=== PATIENT | female | born 1945 | race Caucasian/White ===

== ENCOUNTER 2022-06-16 11:37 | Outpatient (CLI) | payer MEDICARE, MEDICAID, SELFPAY ==
--- NOTE | ~2022-06-16 | US_ITS ---
EXAMINATION: US venous doppler [facility] DATE: 06/16/2022 12:25 INDICATION: Localized lower limb swelling TECHNIQUE: Grayscale ultrasound images without and with compression and Doppler ultrasound images of the bilateral lower extremity veins were obtained. COMPARISON: None. FINDINGS: The visualized portions of right common femoral vein, profunda (deep) femoral vein, femoral vein, pop liteal vein, posterior tibial veins, gastrocnemius vein and greater saphenous vein outflow are patent . The visualized portions of left common femoral vein, profunda femoral vein, femoral vein, popliteal v ein, posterior tibial veins, peroneal veins, gastrocnemius vein and greater saphenous vein outflow ar e patent. IMPRESSION: 1. No deep venous thrombosis in either lower limb. Reviewed, dictated and finalized at location A.
== END 2022-06-16 11:38 | disposition home or self-care (01) ==
PROVIDERS: Visit Provider Internal Medicine Cardiovascular Disease
DX: R60.0 Localized edema (principal)
CPT/HCPCS: 93970

== ENCOUNTER 2022-09-02 12:34 | Outpatient (CLI) | payer MEDICARE, MEDICAID, SELFPAY ==
--- NOTE | 2022-09-02 12:58 | ECHO_ITS ---
Patient Info Name: Marian Ortiz Age: 77 years : 1945 Gender: Female Ht: 63 in Wt: 198 lbs BSA: 2.04 m2 HR: 85 bpm BP: 158 / 75 mmHg Heart Rhythm: Sinus Rhythm Technical Quality: Fair Exam Date: 09/02/2022 1:11 PM Exam Location: [facility] Patient Status: Outpatient Admit Date: 09/02/2022 Staff Ordering Physician: Wil Dinero DO Shaker Plate Operator: Sisi Dubon RDCS Attending Provider: Wil Dinero DO Referring Physician: Bar SANCHEZ; Exam Type: CA echo doppler color flow Study Info Indications - cardiac murmur Complete two-dimensional, color flow and Doppler transthoracic echocardiogram is performed. Summary 1. Complete two-dimensional, color flow and Doppler transthoracic echocardiogram is performed. 2. Left ventricular chamber dimension is normal. 3. Left ventricular systolic function is normal, estimated at 60-65%. 4. The left ventricular diastolic function is grade I diastolic dysfunction. 5. E/e' 7 is not elevated. 6. There is moderate aortic valve sclerosis. 7. There is mild aortic valve stenosis with a peak velocity of 230 cm/s, mean gradient of 11 mmHg, and aortic valve area of 2.0 cm2. 8. There is mild tricuspid valve regurgitation. 9. No pulmonary hypertension, estimated pulmonary arterial systolic pressure is 34 mmHg. Left Ventricle E/e' 7 is not elevated. Left ventricular chamber dimension is normal. Left ventricular systolic function is normal, estimated at 60-65%. The left ventricular diastolic function is grade I diastolic dysfunction. Right Ventricle Right ventricular chamber dimension is normal. Right ventricular systolic function is normal. Left Atria Left atrial chamber dimension is normal. Right Atria Right atrial chamber dimension is normal. Aortic Valve The aortic valve is trileaflet. There is moderate aortic valve sclerosis. There is mild aortic valve stenosis with a peak velocity of 230 cm/s, mean gradient of 11 mmHg, and aortic valve area of 2.0 cm2. There is no aortic valve regurgitation. Pulmonic Valve There is no pulmonic regurgitation. Mitral Valve There is no mitral valve stenosis. There is no mitral valve regurgitation. Tricuspid Valve There is mild tricuspid valve regurgitation. No pulmonary hypertension, estimated pulmonary arterial systolic pressure is 34 mmHg. Pericardium/Pleural There is no pericardial effusion. Inferior Vena Cava Normal inferior vena cava with >50% collapse upon inspiration consistent with normal right atrial pressure, 5 mmHg. Aorta The aortic root size at the sinus of Valsalva is normal. Left Ventricular Outflow Tract Name Value Normal LVOT 2D LVOT Diameter 2.0 cm LVOT Doppler LVOT Peak Gradient 4 mmHg LVOT Mean Gradient 3 mmHg LVOT VTI 28 cm LVOT VTI/AV VTI Ratio 0.7 LVOT Stroke Volume 88 ml LVOT CO 14.4 l/min LVOT CI 7.1 l/min/m2 Pulmonic Valve Name Value Normal ---------
== END 2022-09-02 12:35 | disposition home or self-care (01) ==
LOC: ANHCARD 12:37
PROVIDERS: Visit Provider Internal Medicine Cardiovascular Disease
DX: R01.1 Cardiac murmur, unspecified (principal); I36.1 Nonrheumatic tricuspid (valve) insufficiency
CPT/HCPCS: 93306

== ENCOUNTER 2024-05-05 09:16 | Outpatient (CLI) | payer MEDICARE, SELFPAY ==
--- NOTE | 2024-05-05 09:27 | ECHO_ITS ---
Patient Info Name: Marian Ortiz Age: 78 years : 1945 Gender: Female Ht: 63 in Wt: 200 lbs BSA: 2.05 m2 HR: 72 bpm BP: 149 / 76 mmHg Heart Rhythm: Sinus Rhythm Technical Quality: Fair Exam Date: 05/05/2024 9:57 AM Exam Location: Echo Lab Patient Status: Outpatient Admit Date: 05/05/2024 Staff Ordering Physician: Wil Dinero DO Metal Ceiling Builder: Kezia Patterson RDCS Attending Provider: Wil Dinero DO Referring Physician: Bar SANCHEZ; Exam Type: CA echo doppler color flow Study Info Indications - Aortic valve disease Complete two-dimensional, color flow and Doppler transthoracic echocardiogram is performed. Summary 1. Complete two-dimensional, color flow and Doppler transthoracic echocardiogram is performed. 2. Left ventricular chamber dimension is normal. 3. Left ventricular systolic function is normal, estimated at 65-70%. 4. There is mild concentric increased left ventricular wall thickness. 5. The left ventricular diastolic function is grade I diastolic dysfunction. 6. E/e' 10 is mildly elevated. 7. Left atrial chamber dimension is mildly enlarged. 8. There is moderate aortic valve sclerosis. 9. There is mild aortic valve stenosis with a peak velocity of 219 cm/s, mean gradient of 10 mmHg, and aortic valve area of 1.9 cm2. 10. There is trace aortic valve regurgitation. 11. The mitral valve has mildly calcified annulus. 12. There is trace tricuspid valve regurgitation. 13. No pulmonary hypertension, estimated pulmonary arterial systolic pressure is 23 mmHg. 14. There is trace pulmonic regurgitation. Left Ventricle E/e' 10 is mildly elevated. Left ventricular chamber dimension is normal. Left ventricular systolic function is normal, estimated at 65-70%. There is mild concentric increased left ventricular wall thickness. The left ventricular diastolic function is grade I diastolic dysfunction. Right Ventricle Right ventricular systolic function is normal and with normal TAPSE 1.8 cm. Right ventricular chamber dimension is normal. Left Atria Left atrial chamber dimension is mildly enlarged. Right Atria Right atrial chamber dimension is normal. Aortic Valve The aortic valve is trileaflet. There is moderate aortic valve sclerosis. There is mild aortic valve stenosis with a peak velocity of 219 cm/s, mean gradient of 10 mmHg, and aortic valve area of 1.9 cm2. There is trace aortic valve regurgitation. Pulmonic Valve There is trace pulmonic regurgitation. Mitral Valve The mitral valve has mildly calcified annulus. There is no mitral valve stenosis. There is no mitral valve regurgitation. Tricuspid Valve There is trace tricuspid valve regurgitation. No pulmonary hypertension, estimated pulmonary arterial systolic pressure is 23 mmHg. Pericardium/Pleural There is no pericardial effusion. Inferior Vena Cava Normal inferior vena cava with >50% collapse upon inspiration consistent with normal right atrial pressure, 5 mmHg. Aorta The aortic root size at the sinus of Valsalva is normal. Left Ventricular Outflow Tract Name Value Normal LVOT 2D LVOT Diameter 2.0 cm LVOT Doppler LVOT Peak Gradient 7 mmHg LVOT Mean Gradient 4 mmHg LVOT VTI 33 cm LVOT VTI/AV VTI Ratio 0.6 LVOT Stroke Volume 103 ml LVOT CO 17.4 l/min LVOT CI 8.5 l/min/m2 Pulmonic Valve Name Value Normal RVOT Doppler RVOT Peak Gradient 2 mmHg PV Doppler PV Peak Gradient 9 mmHg Mitral Valve Name Value Normal MV Doppler MV Decel Bennett 243 cm/s2 MV PHT 78 ms MV Area (PHT) 2.8 cm2 4.0-5.0 MV Diastolic Function MV E Peak Velocity 65 cm/s MV A Peak Velocity 88 cm/s MV E/A 0.7 MV Decel Time 268 ms MV Annular TDI MV E/e' (Septal) 12.1 <=8.0 MV E/e' (Lateral) 9.0 <=8.0 MV E/e' (Average) 10.6 Tricuspid Valve Name Value Normal TV Regurgitation Doppler TR Peak Velocity 215 cm/s TR Peak Gradient 18 mmHg Estimated PAP/RSVP RA Pressure 5 mmHg <=5 PA Systolic Pressure 23 mmHg <36 RV Systolic Pressure 23 mmHg <36 Aortic Valve Name Value Normal AV Doppler AV Peak Velocity 219 cm/s AV Peak Gradient 17 mmHg AV Mean Gradient 10 mmHg AV VTI 55 cm AV Area (Cont Eq VTI) 1.9 cm2 >=3.0 AV Area (Cont Eq Luis) 1.9 cm2 AV Regurgitation 2D LVOT Area 3.1 cm2 AV Regurgitation Doppler AR Decel Time 5,113 ms AR Decel Bennett 51 cm/s2 AR PHT 1,483 ms Ventricles Name Value Normal LV Dimensions 2D/MM IVS Diastolic Thickness (2D) 1.2 cm 0.6-1.0 LVID Diastole (2D) 4.2 cm 3.8-5.2 LVIW Diastolic Thickness (2D) 1.0 cm 0.6-0.9 LVID Systole (2D) 2.9 cm 2.2-3.5 LVOT Diameter 2.0 cm LV Mass (2D Cubed) 153.83 g 67.00-162.00 LV Mass Index (2D Cubed) 75 g/m2 43-95 Relative Wall Thickness (2D) 0.47 LV Fractional Shortening/Ejection Fraction 2D/MM LV Fractional Shortening (2D) 32 % 27-45 LV EF (2D Teicholz) 60 % 54-74 LV Diastolic Volume (4C MOD) 111 ml LV EF (4C MOD) 69 % LV Diastolic Volume (2C MOD) 137 ml LV EF (2C MOD) 71 % LV Diastolic Volume (BP MOD) 128 ml 46-106 LV Diastolic Volume Index (BP MOD) 63 ml/m2 29-61 LV Systolic Volume (BP MOD) 38 ml 14-42 LV Systolic Volume Index (BP MOD) 19 ml/m2 8-24 LV EF (BP MOD) 70 % 54-74 LV Diastolic Length (4C) 7.8 cm LV Systolic Length (4C) 5.7 cm LV Stroke Volume (4C MOD) 76 ml Atria Name Value Normal LA Dimensions LA Volume (4C A-L) 68 ml LA Volume (BP A-L) 66 ml RA Dimensions RA Area (4C) 17.1 cm2 <=18.0 Report Signatures
--- OUTSIDE RECORDS SUMMARY | 2024-05-05 09:46 | XMS_ITS | Encounter Summary ---
Author Organization [facility] Health Address [address] [place] [address] Care Team Providers Care Osha Inspector Name Role Phone Isaias Cotto MD Primary Care Provider Unavailab Maryse Newman PRODUCTION LINE MANAGER-CONCERT PROMOTER Unavailable [phone] Isaias Cotto MD Unavailable Unavailable Isaias Cotto MD Unavailable Unavailable Isaias Cotto MD Unavailable Unavailable Isaias Cotto MD Unavailable Unavailable Pcp, [facility] Primary Care Provider Un available Kee Washington MD Primary Care Provider [phone] Encounter Details Date Type Department Care Team (Late st Contact Info) Description 04/19/2012 [facility] Outpatient Visit EXTERNAL NON-[facility] [place] [place] [address] [place] [address] Social History Tobacco Use Types Packs/Day Years Used Date Smoking Tobacco: Every Day Cigarettes Smokeless Tobacco: Never Alcohol Use Standard Drinks/Week Comments No 0 (1 standard drink = 0.6 oz pur e alcohol) Sex and Gender Information Value Date Recorded Sex Assigned at Not on file Gender Identity Not on file Sexual Orientation Not on file documented as of this encounter Plan of Treatment Not on file documented as of this encounter Visit Diagnoses Not on filedocumented in this encounter Additional Health Concerns Infection Onset Date Last Indicated Resolved Time COVID-19 Under Investigation 03/13/2021 03/13/2021 03/15/2021 6:[address] SQL DEVELOPER CDIFF Under Investigation 04/01/2022 04/02/2022 4:[address] SQL DEVELOPER documented as of this encounter Care Teams Osha Inspector Relationship Specialty Start Date End Date Isaias Cotto MD PCP - General 01/16/08 02/28/24 Isaias Cotto MD Retired PCP - Attributed-C MA 03/25/21 07/10/21 Isaias Cotto MD Retired PCP - Attributed-[employer] MA 10/23/21 12/09/22 Isaias Cotto MD Retired PCP - Attributed-[employer] MA 04/23/23 05/13/23 Isaias Cotto MD Retired PCP - Attributed-C MA STL P4P 05/24/23 Pcp, [facility] Im-Fm PCP - General 02/29/24 04/26/24 Kee Washington MD [address] [place] [phone] PCP - General Family Medicine 04/27/24 Maryse Smith, PRODUCTION LINE MANAGER-CONCERT PROMOTER Nurse Practitioner Nurse Practitioner 06/17/15 documented as of this encounter
--- OUTSIDE RECORDS SUMMARY | 2024-05-05 09:46 | XMS_ITS | Clinical Summary ---
Author Organization [facility] Address [address] Flores: Epic Prelude [place] [address] Care Team Providers Care Filling Separator Name Role Phone Unavailable Primary Care Provider Unavailabl e Social History Tobacco Use Types Packs/Day Years Used Date Smoking Tobacco: Never Assessed Comments Unknown Sex and Gender Information Value Date Recorded Sex Assigned at Not on file Legal Sex Female 4:25 AM DECORATOR HAND Gender Identity Not on file Sexual Orientation Not on file Plan of Treatment Health Maintenance Due Date Last Done Comments DTAP/TDAP/TD VACCINES (1 - Tdap) 06/25/1966 PNEUMOCOCCAL VACCINE 50+ YEARS (1 of 1 - PCV) 06/25/18 98 ZOSTER VACCINE (1 of 2) 06/25/1997 OSTEOPOROSIS SCREENING 06/25/2012 RSV VACCINE (60+ or ) (1 - 1-dose 75+ series) 06/25/2022 INFLUENZA VACCINE (#1) 2023
--- OUTSIDE RECORDS SUMMARY | 2024-05-05 09:46 | XMS_ITS | Referral Summary ---
Author Organization [facility] [address] [place] [address] Care Team Providers Care Hospital Unit Clerk Name Role Phone Isaias Pino MD Unavailable [phone] Isaias Pino MD Primary Care Provider [phone] Allergies Active Allergy Reactions Criticality Noted Date Comments Morphine Nausea And Vomiting 03/11/2015 Medications pravastatin (PRAVACHOL) 20 mg tablet Take 20 mg by mouth daily. Active enalapril (VASOTEC) 20 mg tablet Take 20 mg by mouth daily. Active metFORMIN (GLUCOPHAGE) 500 mg tablet Take 500 mg by mouth 2 (two) times a day with meals. Active hydroCHLOROthia zide (MICROZIDE) 12.5 mg capsule Take 12.5 mg by mouth daily. Active allopurinoL (ZYLOPRIM) 300 mg tablet 1 Active NovoLIN 70/30 100 unit/mL vial for injection 1 Active levothyroxine (SYNTHROID) 50 mcg tablet TAKE ONE TAB ALTERNATING WITH 2 TABS EVERY OTHER DAY 1 Active metoprolol XL (TOPROL-XL) 100 mg 24 hr tablet Take 50 mg by mouth daily 1 Active fidaxomicin (DIFICID) tabletIndicatio ns:Clostridioid es difficile infection Take 1 tablet (200 mg total) by mouth 2 (two) times a day 20 tablet 3 Active Active Problems Problem Noted Date Diagnosed Date Primary osteoarthritis of left hip 12/09/2020 Hip flexor tendonitis, left 12/09/2020 Tendonitis involving hip abductors, left 021 Gout, arthropathy 05/02/2018 Social History Tobacco Use Types Packs/Day Years Used Date Smoking Tobacco: Never Assessed Cigarettes Quit: 1999 Smokeless Tobacco: Never Personal Safety Answer Date Recorded Getting School Help Needed Denies 02/02 Comments No Sex and Gender Information Value Date Recorded Sex Assigned at Not on file Legal Sex Female 12:28 PM MINIATURE TRAIN DRIVER Gender Identity Not on file Sexual Orientation Not on file Last Filed Vital Signs Vital Sign Reading Time Taken Comments Blood Pressure 150/76 04/05/2022 10:29 AM MINIATURE TRAIN DRIVER Pulse 79 04/05/2022 10:29 AM MINIATURE TRAIN DRIVER Temperature 36.6 C (97.8 F) 04/05/2022 10:29 AM MINIATURE TRAIN DRIVER Respiratory Rate 18 04/05/2022 10:29 AM MINIATURE TRAIN DRIVER Oxygen Saturation 98% 04/05/2022 10:29 AM MINIATURE TRAIN DRIVER Inhaled Oxygen Concentration - - Weight 90.7 kg (200 lb) 04/05/2022 10:29 AM MINIATURE TRAIN DRIVER Height 161.3 cm (5' 3.5 ) 04/05/2022 10:29 AM CS T Body Mass Index 34.87 04/05/2022 10:29 AM MINIATURE TRAIN DRIVER Plan of Treatment Not on file Procedures Procedure Name Priority Date/Time Associated Diagnosis Comments DIGITAL MAMMOGRAPHY Routine 12/27/2012 1 0:57 AM MINIATURE TRAIN DRIVER from Last 3 Months or Most Recently Relevant to Health Maintenance Results * DIGITAL MAMMOGRAPHY (12/27/2012 10:57 AM MINIATURE TRAIN DRIVER) Anatomical Region Laterality Modality Breast Mammography 12/27/2012 10:5 7 AM MINIATURE TRAIN DRIVER Narrative 12/27/2012 9:54 PM MINIATURE TRAIN DRIVER Screening Mamm Bi Acc#: [id number] Performed by: meg DATE OF EXAM: Dec 27 2012 CLINICAL HISTORY: Screening. RESULT: Superior-inferior and lateral oblique views of each breast were obtained using the low dose technique. Breasts are composed primarily of fatty tissue, increasing the reliability of the study. No pathological calcification or skin thickening was seen. Digital technology was employed plus computer-aided detection software (R2) was utilized in interpretation of these images. This facility utilizes a reminder system to notify patients of yearly mammograms. IMPRESSION: NEGATIVE MAMMOGRAM. BI-RADS CATEGORY 1: NEGATIVE EXAM. Interpreting Physician: ATTILA TOLLIVER M.D. Read on: Dec 27 2012 11:01A Transcribed by: BO On: Dec 27 2012 1:51P Approved Electronically by: ATTILA TOLLIVER M.D. on: Dec 27 2012 9:54P Ordering DR: ISAIAS PINO Attending : ISAIAS PINO Procedure Note Provider, MD Royer - 06/12/2016 Screening Mamm Bi Acc#: [id number] Performed by: meg DATE OF EXAM: Dec 27 2012 CLINICAL HISTORY: Screening. RESULT: Superior-inferior and lateral oblique views of each breast were obtainedusing the low dose technique. Breasts are composed primarily of fattytissue, increasing the reliability of the study. No pathologicalcalcification or skin thickening was seen. Digital technology was employedplus computer-aided detection software (R2) was utilized in interpretationof these images. This facility utilizes a reminder system to notifypatients of yearly mammograms. IMPRESSION: NEGATIVE MAMMOGRAM. BI-RADS CATEGORY 1: NEGATIVE EXAM. Interpreting Physician: ATTILA TOLLIVER M.D. Read on: Dec 27 201211:01A Transcribed by: BO On: Dec 27 2012 1:51P Approved Electronically by: ATTILA TOLLIVER M.D. on: Dec 27 20129:54P Ordering DR: ISAIAS PINO Attending : ISAIAS PINO Historical Provider IMG MAMMO PROCEDURES Tavia l Result from Last 3 Months or Most Recently Relevant to Health Maintenance Insurance [employer] MEDICARE SOLUTIONS MEDICARE SOLUTIONS [facility] MEDICARE SOLUTIONS MEDICARE SOLUTIONS IDPA Care Teams Hospital Unit Clerk Relationship Specialty Start Date End Date Isaias Pino MD [address] [place] [address] PCP - General Internal Medicine 02/05/23 Isaias Pino MD [address] [place] [address] 04/05/22
--- OUTSIDE RECORDS SUMMARY | 2024-05-05 09:46 | XMS_ITS | Encounter Summary ---
Author Organization [email or web address] Address [address] [place] [address] Care Team Providers Care Dough Raiser Name Role Phone Unavailable Primary Care Provider Unavailabl e Encounter Details Date Type Department Care Team (Late st Contact Info) Description 06/01/2003 Outpatient Historical [facility] Luis Felipe Washington MD NO ADDRESS ON FILE Social History Tobacco Use Types Packs/Day Years Used Date Smoking Tobacco: Never Assessed Comments Unknown Sex and Gender Information Value Date Recorded Sex Assigned at Not on file Legal Sex Female 4:25 AM DEBUBBLIZER Gender Identity Not on file Sexual Orientation Not on file documented as of this encounter Plan of Treatment Not on file documented as of this encounter Visit Diagnoses Not on filedocumented in this encounter
--- OUTSIDE RECORDS SUMMARY | 2024-05-05 09:46 | XMS_ITS | Clinical Summary ---
Author Organization [facility] Address [address] [place] [address] Care Team Providers Care Furnace Liner Name Role Phone Maryse Smith APRN-[employer] Unavailable [phone] Isaias Cotto MD Unavailable Unavailable Kee Washington MD Primary Care Provider [phone] Source Comments [facility],non-owned Affiliates and Associated Physician Practices is amultiple site organization consisting of ambulatory clinics and hospital sitesin [place], [place], [place] and [place]. This disclosure is being madepursuant to the Care Everywhere program and may not contain all information available regarding this patient. Last updated 17.[facility] Allergies Active Allergy Reactions Criticality Noted Date Comments Ciprofloxacin Angioedema High 04/03/2022 Enalapril Angioedema High 04/06/2022 possible cause of lip swelling Metronidazole Angioedema High 04/03/2022 was on flagyl and cipro at the same time and had lip swelling. Morphine Nausea and/or Vomiting 03/11/2015 Simvastatin 06/05/2008 LE[facility] CRAMPS Medications * Be aware that medications may not be up to date on this document. Alwaysverify current medications with the patient. Medication Sig Dispensed Refills Start Date End Date Status Microlet Lancets MISCIndications:Ty pe 2 diabetes; E11.00; insulin use Use 1 Each 2 times daily Reasons: Type 2 diabetes; E11.00; insulin use 200 Each 3 05/20/19 22 Active aspirin (ASPIRIN) 81 MG chew tablet Take 1 (one) tablet by mouth once daily 100 tablet 08/07/19 22 Active ketoconazole (Nizoral) 2 % creamIndications:R josé miguel APPLY TO AFFECTED AREA EVERY DAY 15 g 01/13/20 22 Active OneTouch Verio test stripIndications:D iabetes mellitus with stage 3 chronic kidney disease (HCC) TEST TWICE A DAY 200 strip 3 03/23/19 23 Active ferrous sulfate 325 (65 FE) MG tablet Take 1 (one) tablet by mouth once daily 30 tablet 05/26/19 23 Active ascorbic acid (Vitamin C) 500 MG tablet Take 1 (one) tablet by mouth once daily 30 tablet 05/26/19 23 Active Continuous Blood Gluc Manager Mechanical Maintenance (Evolve PartnersStyle Billie 2 [place] Syst) DEVIIndications:Di abetes Mellitus,Type 2 diabetes; insulin use Use 1 Each once daily Reasons: Diabetes, Type 2 diabetes; insulin use 1 Each 06/16/19 23 Active Blood Pressure Monitor KIT Use 1 Each once daily 1 kit 06/17/19 23 Active UltiCare Insulin Syringe 31G X 5/16 1 ML syringeIndications :Diabetes mellitus with stage 3 chronic kidney disease (HCC) USE 1 SYRINGE TWICE A DAY 200 Each 3 09/04/19 23 Active folic acid (Folvite) 1 MG tablet Take 1 (one) tablet by mouth once daily 90 tablet 4 10/16/19 23 Active cyanocobalamin (Vitamin B-12) 1000 MCG tabletIndications: B12 deficiency Take 1 (one) tablet by mouth once daily 90 tablet 1 01/19/20 23 Active Cholecalciferol (Vitamin D3) 25 MCG (1000 UT)Indications:Vit whitlock D deficiency Take 1 (one) capsule by mouth once daily 90 capsule 1 01/19/20 23 Active LORazepam (Ativan) 1 MG tablet Take 1 (one) tablet by mouth as directed Take 1 tab 1 hr prior to test then can take 2nd before test if needed. 2 tablet 03/17/19 24 Active Nystop 312431 UNIT/GM powderIndications: Skin yeast infection APPLY TO AFFECTED AREA TWICE DAILY 60 g 1 04/14/19 24 Active naloxone HCl (Narcan) 4 MG/0.1ML nasal sprayIndications:L kulwant term current use of opiate analgesic,Chronic pain syndrome [employer] 1 (one) spray into the nose as needed 2 Each 05/14/20 24 Active sertraline (Zoloft) 50 MG tablet Take 2 (two) tablets by mouth once daily 90 tablet 1 09/24/19 24 Active Insulin Pen Needle 32G X 4 MM MISCIndications:Di abetes mellitus with stage 3 chronic kidney disease (HCC) 1 Each by Injection route 2 times daily 200 Each 1 09/24/19 24 Active predniSONE (Deltasone) 10 MG tablet Take 1 (one) tablet by mouth once daily 7 tablet 11/25/19 24 Active Semaglutide (2 MG/DOSE) 8 MG/3ML Subcutaneous Solution Pen-injector (Ozempic (2 MG/DOSE))Indicatio ns:Diabetes mellitus with stage 3 chronic kidney disease (HCC) Inject 2 (two) mg subcutaneously every 7 days 3 mL 4 11/26/19 24 Active furosemide (Lasix) 40 MG tabletIndications: Bilateral leg edema Take 1 (one) tablet by mouth once daily 90 tablet 1 12/02/19 24 Active allopurinol (Zyloprim) 300 MG tabletIndications: Acute idiopathic gout of right foot TAKE ONE TABLET BY MOUTH DAILY AT 9 AM 90 tablet 1 12/02/19 24 Active amLODIPine (Norvasc) 5 MG tablet Take 1 (one) tablet by mouth once daily 90 tablet 1 12/02/19 24 Active Continuous Glucose Sensor (FreeStyle Billie 2 Sensor Systm) MISCIndications:Di abetes Mellitus,Type 2 diabets; insulin use USE 1 (ONE) EACH EVERY 14 DAYS REASONS: DIABETES, TYPE 2 DIABETS INSULIN USE 6 Each 3 01/10/20 24 Active metoprolol succinate XL 24hr (Toprol XL) 100 MG tablet TAKE 1/2 TABLET BY MOUTH DAILY 45 tablet 3 01/25/20 24 Active levothyroxine (Synthroid) 100 MCG tabletIndications: Adult onset hypothyroidism TAKE ONE TABLET BY MOUTH EVERY DAY 90 tablet 3 01/25/20 24 Active pravastatin (Pravachol) 40 MG tablet TAKE ONE TABLET BY MOUTH DAILY AT BEDTIME 90 tablet 3 01/25/20 24 Active HYDROcodone-acetam inophen ([place]) 5-325 MG tabletIndications: Spinal stenosis of lumbar region, unspecified whether neurogenic claudication present TAKE ONE TABLET BY MOUTH EVERY 6 HOURS NEEDED FOR PAIN 60 tablet 02/14/20 24 Active HumuLIN 70/30 KWIKPEN pen INJECT 40 UNITS TWICE DAILY BEFORE BREAKFAST AND SUPPER 210 mL 05/02/19 25 Active insulin isophane & Reg, human, 70/30 (HumuLIN 70/30 KWIKPEN) pen Inject 40 (forty) Units subcutaneously 2 times daily, before breakfast and supper 80 mL 1 09/24/19 24 025 Discontinued Active Problems Problem Noted Date Diagnosed Date COVID 11/25/2023 Encounter for Medicare anjel zapata examination with abnormal findings 11/25/2023 Meningioma 03/17/2023 Vitamin D deficiency 01/18/2023 Systolic murmur 09/24/2022 Fatigue 09/24/2022 Vitamin B12 deficiency 09/24/2022 Grade I diastolic dysfunction 04/09/2021 Arthritis of spine 04/25/2019 Chronic pain of both knees 04/25/2019 Uncontrolled type 2 diabetes mellitus with hyper glycemia 04/25/2019 Overview (02/21/2020): Isaias Cotto MD 01/04/20 Acute idiopathic gout of right foot 05/04/2018 SOB (shortness of breath) 05/04/2018 Uncontrolled type 2 diabetes mellitus with hyperosmolarity without coma, without long-term current use of insulin 03/02/2018 Overview (03/02/2018): Isaias Cotto MD 06/22/2017 CKD (chronic kidney disease) stage 3, GFR 30-59 ml/min 11/05/2017 Personal history of tobacco use, presenting hazards to health 11/05/2017 Diabetes mellitus with stage 3 chronic kidney di sease 11/03/2017 At standard risk for fall 11/05/2016 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 Tello Bronson (L3) 10/07/[address] Kia Guevara (L1) Carotid bruit 03/26/2011 Overview (03/26/2011): Negative carotid ultrasound 12/2010. History of bladder cancer 11/05/2009 Overview (11/11/2009): History of this in the 11/01/09- Cysto- normal- Dr. Odom 11/01/09 Dr. Odom bladder mucosa was normal Lumbar spinal stenosis 12/12/2008 Overview (12/12/2008): Dr. Melchor- plan to have laminectomy Elevated cholesterol 06/05/2008 TOR (generalized anxiety disorder) 06/05/2008 Other screening mammogram 06/05/2008 Overview (06/05/2008): NEG NEG NEG NEG 02/22 NEG Piriformis tendonitis 08/31/2007 Hx of colonic polyps 06/14/2007 Overview (09/30/2015): 07/30/15-Dr Del ValleUmnmgn-btciaatstxc-0 polyps Resolved Problems Problem Noted Date Diagnosed Date Resolved Date Panlobular emphysema 02/21/2020 024 Overview (02/21/2020): Isaias Cotto MD 04/25/19 Class 2 severe obesity with serious comorbidity and body mass index (BMI) of 37.0 to 37.9 in adult 03/08/2018 05/09/2020 Essential hypertension, benign 03/08/2018 02/21/2020 Chronic obstructive pulmonary disease 11/05/2017 07/06/2023 Overview (11/05/2017): CT scan of chest 2017 shows emphysema present. Malignant neoplasm of urinary bladder 06/09/2016 06/02/2021 BMI 35.0-35.9,adult 02/05/2016 03/02/19 19 BMI 36.0-36.9,adult 10/01/2015 03/02/19 19 Colon polyp 08/16/2015 09/30/2015 Overview (08/16/2015): 07/30/15-Dr Del ValleTlopdb-wmevbmhoxbm-6 polyps Thyrotoxicosis 09/28/2014 09/28/2014 Overview (11/22/2014): Vasile Cotto MD 06/06/2014 Hyperthyroidism 06/10/2012 09/01/2016 Aortic atherosclerosis 03/17/201204/24 Overview (11/05/2017): On 11/05/17 I looked at all of her x-rays and CT scans and can't find this Dx anymore. Not sure where this dx was found. Will see new CT scan to see if this can be discontnued. Hypothyroidism 08/20/2011 06/10/2012 Overview (08/20/2011): 08/06/2011-thyroid scan-increased iodine uptake suggesting hyperthyroidism, R thyroid lobe larger and has asymetric activity with possible hyperfunctioning nodule in mid gland 08/06/2011-thyroid us-both lobes homogeneous,nodules eli with calcified nodule inferiorly on the left Type II or unspecified type diabetes mellitus without mention of complication, uncontrolled 02/27/2010 05/28/2010 Hypertension 06/05/2008 01/15/2009 Type II or unspecified type diabetes mellitus without mention of complication, not stated as uncontrolled 06/05/2008 05/28/2010 Intra-aortic calcification 12/14/2007 1 04/01/2014 Encounters Date Type Department Care Team Description 04/26/[address] [address] Isaias Cotto MD Refill Request 04/18/[address] [address] Isaias Cotto MD Refill Request 03/11/[address] [address] Isaias Cotto MD Refill Request 02/14/[address] [phone] Isaias Cotto MD MEDICATION REFILL from Last 3 Months Immunizations Name Administration Dates Next Due INFLUENZA VACCINE, TRIV. (AF LURIA, FLUZONE TRIVALENT; 6MO+) (IIV3) 11/21/2011,11/27/2009 Covid Moderna primary monova lent 12+ yr 0.5mL 04/21/2020 Covid Pfizer primary monoval ent 12+ yr 0.3mL Purple cap 02/13/2021 INFLUENZA VACCINE 11/25/2017, 7,11/26/2015,2014,11/12/2012,11/21/2011,11/12/2010,1 ,11/23/2007 INFLUENZA VACCINE, ADJUVANTE D, QUADR. (FLUAD QUADRIVALENT; 65Y+) (AIIV4) 10/29/2022 INFLUENZA VACCINE, ADJUVANTE D, TRIV. (FLUAD TRIVALENT; 65Y+) (AIIV3) 02/08/2019,11/25/2017 INFLUENZA VACCINE, HIGH-DOSE , QUADR. (FLUZONE HIGH-DOSE QUADRIVALENT; 65Y+), 0.7 ML (HD-IIV4) 12/15/2021,01/03/2021,11/07/2019,2016 INFLUENZA VACCINE, HIGH-DOSE , TRIV. (FLUZONE HIGH-DOSE TRIVALENT; 65Y+) (HD-IIV3) 02/01/2017 PNEUMOCOCCAL PPSV23 10/20/2012,11/23/2007 Pneumococcal Pcv13 Conj 11/26/2015 Spikevax(nucleoside Modified) 12/27/2022 Zoster Hzv Vacc Recombinant Inj Im 01/12/2019, Family History Medical History Relation Name Comments Cancer Father BLADDER Diabetes Maternal Aunt Thyroid Disease Maternal Aunt Heart Disease Maternal Grandfather Diabetes Maternal Grandmother Heart Disease Maternal Grandmother Diabetes Mother Hypertension Mother Cancer - Breast Paternal Aunt Heart Disease Paternal Grandfather Relation Name Status Comments Father Alive Maternal Aunt Maternal Grandfather Maternal Grandmother Mother Alive Paternal Aunt Paternal Grandfather Paternal Grandmother Social History Tobacco Use Types Packs/Day Years Used Date Smoking Tobacco: Former Cigarettes 1 50 1 03/07/1965 - 01/06/2016 Smokeless Tobacco: Never Tobacco Cessation:Counseling Given: Not Answered Alcohol Use Standard Drinks/Week Comments No 0 (1 standard drink = 0.6 oz pur e alcohol) PHQ-2 Answer Date Recorded Patient Health Questionnaire-2 Score 0 11/25/2023 Hunger Vital Sign Answer Date Recorded Within the past 12 months, y ou worried that your food would run out before you got the money to buy more. Never true 08/07/19 22 Ran Out of Food in the Last Year Not on file 08/06/2021 Sex and Gender Information Value Date Recorded Sex Assigned at Not on file Gender Identity Not on file Sexual Orientation Not on file Last Filed Vital Signs Vital Sign Reading Time Taken Comments Blood Pressure 138/62 11/25/2023 10:43 AM CDT Pulse 72 11/25/2023 10:43 AM CDT Temperature 36.4 C (97.5 F) 01/18/2023 11:00 AM SILVERWARE ETCHER Respiratory Rate 18 08/06/2021 4:49 PM CDT Oxygen Saturation 100% 01/18/2023 11:00 AM SILVERWARE ETCHER Inhaled Oxygen Concentration - - Weight 100.7 kg (222 lb) 11/25/2023 12:33 PM CDT Height 160 cm (5' 3 ) 11/25/2023 12:33 PM CDT Body Mass Index 39.33 11/25/2023 12:33 PM CDT Plan of Treatment Health Maintenance Due Date Last Done Comments DTAP/TDAP/TD VACCINES (1 - Tdap) 06/25/1966 DIABETES-FOOT EXAM WITH MONOFILAMENT 04/28/2022 04/28/2021, 10/01/2014, 10/10/2013, Additional history exists Respiratory Syncytial Virus (RSV) Vaccine Pt: or over 60 yrs (1 - 1-dose 75+ series) 06/25/2022 DIABETES RETINOPATHY SCREENING 01/01/2023 01/01/2021, 04/08/2017, 07/30/2014, Additional history exists COVID-19 VACCINE ( season) 2023 12/27/2022, 02/13/2021, 05/12/2020, Additional history exists INFLUENZA VACCINE (#1) 2023 , 12/15/2021, 01/03/2021, Additional history exists DEPRESSION SCREENING 02/23/2024 07/06/2023, 04/01/2022, 06/02/2021 DIABETES - URINE PROTEIN SCREENING 02/23/2024 11/25/2023, 02/18/2023, 09/24/2022, Additional history exists MEDICARE AWV CALENDAR YEAR 2024 07/06/2023, 04/13/2022, 01/08/2022 DIABETES-HGB A1C 05/25/2024 11/25/2023, , 09/24/2022, Additional history exists DIABETES-SERUM CREATININE 11/24/20242023, 07/06/2023, 06/14/2023, Additional history exists LUNG CANCER SCREENING 11/24/2024 11/25/2023 , 01/22/2022, 09/17/2020, Additional history exists BONE DENSITY TESTING Completed 07/04/2013 HEPATITIS C SCREENING Completed 01/30/2015 PNEUMOCOCCAL VACCINE 50+ Completed 016, 10/20/2012, 11/23/2007 ZOSTER VACCINE Completed 01/12/2019, 10/12/2018 HEPATITIS B VACCINE Aged Out No longe r eligible based on patient's age to complete this topic HIB VACCINE Aged Out No longer eligi ble based on patient's age to complete this topic HPV VACCINE Aged Out No longer eligi ble based on patient's age to complete this topic MENINGOCOCCAL (Group B) VACCINE SHARED DECISION-MAKING Aged Out No longer eligible based on patient's age to complete this topic MENINGOCOCCAL GROUPS A/C/Y/W VACCINE Aged Out No longer eligible based on patient's age to complete this topic Goals Goal Patient Goal Type Associated Problems Recent Progress Patient-Stated? Author Blood Pressure < 140/90 Blood Pressure 138/62(2023 10:43 AM CDT) Gisel Santos [facility] Lifestyle: Have labs drawn Lifestyle No Gisel Lagos Quit smoking / using tobacco Lifestyle No Gisel Lagos HEMOGLOBIN A1C < 7.0 Result Component 7.4( 11:19 AM CDT) Gisel Santos Medical Devices Implanted Type Area Laborer Salvage Device Identifier Shelf Expiration Date Model / Serial / Lot Stent Uret Polaris Ultra 6.0fr X 26mm Implanted:Qty: 1 on 02/28/2015 by Lex Odom MD at [facility] Left: Ureter [employer] 11/22/2017 [id number] / / [id number] Procedures Procedure Name Priority Date/Time Associated Diagnosis Comments CT LUNG SCREEN LOW DOSE Routine 11/25/2023 12:30 PM CDT Encounter for screening for lung cancer MICROALB/CREAT RATIO URINE RANDOM PANEL Routine 11/25/2023 11:20 AM CDT Diabetes mellitus with stage 3 chronic kidney disease (HCC) COMPREHENSIVE METABOLIC PANEL Routine 11/25/2023 11:19 AM CDT Diabetes mellitus with stage 3 chronic kidney disease (HCC) Stage 3a chronic kidney disease (HCC) HEMOGLOBIN A1C W EAG Routine 11/25/2023 11:19 AM CDT Diabetes mellitus with stage 3 chronic kidney disease (HCC) EYE EXAM 01/01/2021 HEPATITIS C ANTIBODY Routine 01/30/2015 12:19 PM SILVERWARE ETCHER Need for hepatitis C screening test DEXA BONE DENSITY RHEUMAT READ Routine 07/04/2013 11:19 AM CDT Osteoporosis from Last 3 Months or Most Recently Relevant to Health Maintenance Results * CT Lung Screen Low Dose (11/25/2023 12:30 PM CDT) Anatomical Region Laterality Modality Chest Computed Tomogra phy 11/25/2023 1:24 PM CDT Impressions 11/25/2023 3:09 PM CDT IMPRESSION: Stable bilateral lung nodules. Lung-RADS category 2: Benign Appearin month follow up LDCT. ACR Lung-RADS Category/Recommendations: 0: Need prior comparisons or additional images 1: Negative: 12 month follow up LDCT (Low Dose CT) 2: Benign Appearin month follow up LDCT 3: Probably Benign: 6 month follow up LDCT 4A: Suspicious: 3 month follow up LDCT (or immediate PET if >7mm solid component) 4B: Suspicious: Immediate Chest CT or PET if >7mm solid component 4X: Cat 3 or 4A nodules with additional suspicious findings Modifier- S : Significant NON-lung cancer findings Modifier- C : Prior treated Lung Cancer. For details of the ACR Lung-RADS program, categories and recommendations: 1) https://www.acr.org/Quality-Safety/Resources/LungRADS 2) Internet search: Lung-RADS Lung Cancer Screening 3) Contact [facility] thoracic nurse coordinator ([phone]) Edited by Lazara Frye on 11/25/2023 3:03 PM > Interpreting Provider: Anni Ramírez MD on 11/25/2023 3:09 PM Narrative 11/25/2023 3:09 PM CDT PROCEDURE: CT LUNG SCREEN LOW DOSE DATE/TIME OF EXAM: 11/25/2023 1:22 PM CLINICAL INFORMATION: None relevant/not provided if blank. Indication: Z12.2: Encounter for screening for malignant neoplasm of respiratory organs Additional History: COMPARISON: Comparison is made with prior from 08/10/2022. TECHNIQUE: CT of the chest was performed without intravenous contrast utilizing low dose protocol. CT dose reduction technique was used, including Automated Exposure Control. FINDINGS: Stable right middle lobe lung nodule measures about 0.5 x 0.7 cm. Stable additional 3-4 mm size bilateral nodules, predominantly seen in the right middle lobe and right upper lobe. These remain grossly similar to prior from 2022. No acute airspace infiltrate seen. No new lung nodule is identified. No definite evidence for endobronchial lesion is identified. No pleural effusion or pneumothorax seen. Calcified left thyroid nodule seen. Atherosclerotic calcification of the aortic arch and descending aorta. No pericardial effusion seen. Degenerative changes of the spine. No vertebral compression fracture seen. Procedure Note Anni Ramírez MD - 11/25/2023 PROCEDURE: CT LUNG SCREEN LOW DOSE DATE/TIME OF EXAM: 11/25/2023 1:22 PM CLINICAL INFORMATION: None relevant/not provided if blank. Indication: Z12.2: Encounter for screening for malignant neoplasm of respiratory organs Additional History: COMPARISON: Comparison is made with prior from 08/10/2022. TECHNIQUE: CT of the chest was performed without intravenous contrast utilizing low dose protocol. CT dose reduction technique was used, including Automated ExposureControl. FINDINGS: Stable right middle lobe lung nodule measures about 0.5 x 0.7 cm. Stable additional 3-4 mm size bilateral nodules, predominantly seen in theright middle lobe and right upper lobe. These remain grossly similar to prior from 2022. No acute airspace infiltrate seen. No new lung nodule is identified. No definite evidence for endobronchial lesion is identified.No pleural effusion or pneumothorax seen. Calcified left thyroid noduleseen. Atherosclerotic calcification of the aortic arch and descending aorta.No pericardial effusion seen. Degenerative changes of the spine. Novertebral compression fracture seen. IMPRESSION: Stable bilateral lung nodules. Lung-RADS category 2: Benign Appearin month follow up LDCT. ACR Lung-RADS Category/Recommendations: 0: Need prior comparisons or additional images 1: Negative: 12 month follow up LDCT (Low Dose CT) 2: Benign Appearin month follow up LDCT 3: Probably Benign: 6 month follow up LDCT 4A: Suspicious: 3 month follow up LDCT (or immediate PET if >7mm solid component) 4B: Suspicious: Immediate Chest CT or PET if >7mm solid component 4X: Cat 3 or 4A nodules with additional suspicious findings Modifier- S : Significant NON-lung cancer findings Modifier- C : Prior treated Lung Cancer. For details of the ACR Lung-RADS program, categories andrecommendations: 1) https://www.acr.org/Quality-Safety/Resources/LungRADS 2) Internet search: Lung-RADS Lung Cancer Screening 3) Contact [facility] thoracic nurse coordinator ([phone]) Edited by Lazara Frye on 11/25/2023 3:03 PM > Interpreting Provider: Anni Ramírez MD on 11/25/2023 3:09 [address] Cotto MD [address] ORDERABLES * (ABNORMAL) MICROALB/CREAT RATIO URINE RANDOM PANEL (11/25/2023 11:20 AM CDT) Creatinine Urine 18.08 mg/dL [facility] ACCOUNT BILL Microalbumin Urine 2.2 mg/dL [facility] ACCOUNT BILL Microalbumin/Crea tinine Ratio 121(H) <30 mg/g [facility] ACCOUNT BILL Urine URINE SPECIMEN OBTAINED BY CLEAN CATCH PROCEDURE / Unknown 11/25/2023 11:20 AM CDT 11/25/2023 Narrative [facility] ACCOUNT BILL - 11/25/2023 6:08 PM CDT Performed at: [address] [place] [id number] [place] [address] [place], [place] [id number] Safety Tech: Amy Rodriguez [facility], Phone: [phone] Isaias Cotto MD LAB - URINE CHEMISTR Y ORDERABLES [facility] ACCOUNT BILL [address] [place] [address] * (ABNORMAL) HEMOGLOBIN A1C W EAG (11/25/2023 11:19 AM CDT) Hemoglobin A1c 7.4(H) <5.7 % [facility] ACCOUNT BILL Estimated Average Glucose 166 mg/dL [facility] ACCOUNT BILL Comment: HbA1c Interpretation: Normal: < 5.7% Pre-diabetes: 5.7-6.4% Diabetes: Equal to or greater than 6.5% Test results diagnostic of diabetes should be repeated for c onfirmation. Treatment target values recommended by ADA and other clinica l organizations should be used to evaluate metabolic control in patients. This test should not replace glucose testing for patients wi th Type 1 diabetes, pediatric patients, or women. Falsely low HbA1c results may be observed in patients with c linical conditions that shorten erythrocyte life span or dec rease mean erythrocyte age such as the presence of unstable hemoglobin variants, elevated hemoglobin F level or other ca uses of hemolytic anemia. HbA1c may not accurately reflect glycemic control when clinical conditions that affect erythr ocyte survival are present. Severe Iron deficiency anemia m ay yield falsely high results. Hemoglobin A1c assay should not be used to diagnose or monitor diabetes in patients with malignancy, recent blood transfusion, chronic kidney or jimmy er disease. This method may yield falsely low results when hemoglobin (HbF) exceeds 5% in the specimen. The [employer] Alinity assay for the measurement of HbA1c is a [facility] Glycohemoglobin Standardization Program (NGSP) certi fied method. Blood BLOOD SPECIMEN / Unknown 11/25/2023 11:19 AM CDT 11/25/2023 Narrative [facility] ACCOUNT BILL - 11/25/2023 6:08 PM CDT Performed at: [address] [place] [address] [place], [place] [id number] Safety Tech: Amy Rodriguez [facility], Phone: [phone] Isaias Cotto MD LAB - CHEMISTRY CRISTOBAL NASH [facility] ACCOUNT BILL [address] [place] [address] * (ABNORMAL) COMPREHENSIVE METABOLIC PANEL (11/25/2023 11:19 AM CDT) Glucose 203(H) 70 - 99 mg/dL [facility] ACCOUNT BILL BUN 10 7 - 26 mg/dL [facility] ACCOUNT BILL Creatinine 1.10 0.57 - 1.11 mg/dL [facility] ACCOUNT BILL eGFR by CKD-EPI 52(L) >=90 mL/min/1.7 3 m2 [facility] ACCOUNT BILL Sodium 136 136 - 145 mmol/L [facility] ACCOUNT BILL Potassium 3.9 3.5 - 5.1 mmol/L [facility] ACCOUNT BILL Chloride 105 98 - 107 mmol/L [facility] ACCOUNT BILL CO2 26 22 - 29 mmol/L [facility] ACCOUNT BILL Calcium 9.0 8.4 - 10.4 mg/dL [facility] ACCOUNT BILL Protein Total 7.2 6.4 - 8.3 gm/dL [facility] ACCOUNT BILL Albumin 3.7 3.4 - 5.0 gm/dL [facility] ACCOUNT BILL Bilirubin Total 0.8 0.2 - 1.2 mg/dL [facility] ACCOUNT BILL Alkaline Phosphatase 128 40 - 150 U/L [facility] ACCOUNT BILL AST 32 5 - 34 U/L [facility] ACCOUNT BILL ALT 23 0 - 55 U/L [facility] ACCOUNT BILL Blood BLOOD SPECIMEN / Unknown 11/25/2023 11:19 AM CDT 11/25/2023 Narrative [facility] ACCOUNT BILL - 11/25/2023 6:08 PM CDT Performed at: [address] [place] [address] [address] [place], [place] [id number] Safety Tech: Amy Rodriguez [facility], Phone: [phone] Isaias Cotto MD LAB - CHEMISTRY CRISTOBAL NASH [facility] ACCOUNT BILL [address] [place] [address] * EYE EXAM (01/01/2021) Anatomical Region Laterality Modality Other 01/01/2021 Narrative 01/01/2021 Ordered by an unspecified provider. Scanned Document SCANNING ONLY * HEPATITIS C ANTIBODY (01/30/2015 12:19 PM SILVERWARE ETCHER) Hepatitis C Antibody Non Reactive Non Reactive [facility] INSURANCE BILL Comment: Non Reactive - Antibodies to Hepatitis C virus (HCV) were no t detected, result does not exclude early acute HCV infection. Blood specimen (specimen) BLOOD SPECIMEN / Unknown 01/30/2015 12:19 PM SILVERWARE ETCHER 01/30/2015 7:00 PM SILVERWARE ETCHER Narrative Resulting Agency Comment [facility] [address] [facility] [phone] Isaias Cotto MD LAB - CHEMISTRY CRISTOBAL NASH [facility] INSURANCE BILL * DEXA BONE DENSITY RHEUMAT READ (07/04/2013 11:19 AM CDT) Anatomical Region Laterality Modality Mammography Narrative 07/06/2013 2:02 PM CDT Lorne Dozier MD 07/06/2013 2:02 PM [facility] [employer] Central DXA of spine and Hips Marian Ortiz is a 68 y.o. female : 1945 Date of scan 07/04/13 Note: Where comparable data is available the results have been compared with prior scanning. Issues of bone scan quality are addressed prior to data processing as able. Note that cases with degenerative arthritis of the spine or prior spine surgery or fracture can result in unpredictable effects on estimates of bone density. Results: Spine average density 1.317 gm/cm2___t-score 1.1 Femoral neck average density___ 0.992 gm/cm2___t-score -0.3 Total hip average density 1.116 gm/cm2___t-score 0.9 Fracture risk low IMP: Normal bone density low risk for significant progression in 5 years Recommendation: Normal supplements, repeat bone density in 5 years or sooner if clinically indicated. Recommendations for treatment and follow up scanning are not intended to replace clinical judgement and are based on available data which may be incomplete and attempt to follow the 2008 NOF treatment guidelines. The NOF recommends treatment for patients with a t-score <-2.5 or -1.5 and below with 10 yr fracture risk greater than 20% for all fractures or greater than 3% for hip fractures based on FRAX calculation or a history of fragility fracture. Read by: Lorne Dozier MD Certified Clinical Hotel Operations Manager Office: [phone] Call Directly: [phone] [facility] Address: [facility] Procedure Note Lorne Dozier MD - 07/06/2013 2:01 PM CDT [facility] [employer] Central DXA of spine and Hips Marian Ortiz is a 68 y.o. female : 1945 Date of scan 07/04/13 Note: Where comparable data is available the results have been comparedwith prior scanning. Issues of bone scan quality are addressed prior todata processing as able. Note that cases with degenerative arthritis ofthe spine or prior spine surgery or fracture can result in unpredictableeffects on estimates of bone density. Results: Spine average density 1.317 gm/cm2___t-score 1.1 Femoral neck average density___ 0.992 gm/cm2___t-score -0.3 Total hip average density 1.116 gm/cm2___t-score 0.9 Fracture risk low IMP: Normal bone density low risk for significant progression in 5years Recommendation: Normal supplements, repeat bone density in 5 years orsooner if clinically indicated. Recommendations for treatment and follow up scanning are not intended toreplace clinical judgement and are based on available data which may beincomplete and attempt to follow the 2008 NOF treatment guidelines. TheNOF recommends treatment for patients with a t-score <-2.5 or -1.5 andbelow with 10 yr fracture risk greater than 20% for all fractures orgreater than 3% for hip fractures based on FRAX calculation or a historyof fragility fracture. Read by: Lorne Dozier MD Certified Clinical Hotel Operations Manager Office: [phone] Call Directly: [phone] [facility] Address: [facility] Isaias Cotto MD DEXA ORDERABLES from Last 3 Months or Most Recently Relevant to Health Maintenance Advance Directives * Full Code (Latest Code Status on File) Date Activated Date Inactivated Comments 08/06/2021 12:32 PM 08/06/2021 7:55 PM * Full Code Date Activated Date Inactivated Comments 08/05/2021 2:07 PM 08/06/2021 12:32 PM Care Teams Furnace Liner Relationship Specialty Start Date End Date Cotto, Isaias, MD Retired PCP - Attributed-[facility] [place] STL P4P 05/24/23 Kee Washington MD [address] [place] [address] PCP - General Family Medicine 04/27/24 Maryse Smith, FOREST PATHOLOGY ASSOCIATE PROFESSOR-CUTTER AND PASTER PRESS CLIPPINGS Nurse Practitioner Nurse Practitioner 06/17/15
--- OUTSIDE RECORDS SUMMARY | 2024-05-05 09:46 | XMS_ITS | Clinical Summary ---
Author Organization [facility] [address] [facility] [place] [address] Care Team Providers Care Heating Element Winder Name Role Phone Isaias Pino MD Unavailable [phone] Isaias Pino MD Primary Care Provider [phone] Allergies Active Allergy Reactions Criticality Noted Date [...] hip abductors, left 021 Gout, arthropathy 05/02/2018 Medical History Medical History Date Comments Arthritis Diabetes mellitus (HCC) Hypertension Hypercholesteremia Cancer (HCC) Thyroid disease Rheumatoid arthritis (HCC) Gout Family History Medical History Relation Name Comments Arthritis Other Diabetes Other Hypertension Other Relation Name Status Comments Other Social History Tobacco Use Types Packs/Day Years Used Date Smoking Tobacco: Never Assessed Cigarettes Quit: 1999 Smokeless Tobacco: Never Personal Safety Answer Date Recorded Getting School Help Needed Denies 02/02 Comments No Sex and Gender Information Value Date Recorded Sex Assigned at Not on file Legal Sex Female 12:28 PM INFORMATION TECHNOLOGY MANAGER Gender Identity Not on file Sexual Orientation Not on file Obstetrics History Last Filed Vital Signs Vital Sign Reading Time Taken Comments Blood Pressure 150/76 04/05/2022 10:29 AM INFORMATION TECHNOLOGY MANAGER Pulse 79 04/05/2022 10:29 AM INFORMATION TECHNOLOGY MANAGER Temperature 36.6 C (97.8 F) 04/05/2022 10:29 AM INFORMATION TECHNOLOGY MANAGER Respiratory Rate 18 04/05/2022 10:29 AM INFORMATION TECHNOLOGY MANAGER Oxygen Saturation 98% 04/05/2022 10:29 AM INFORMATION TECHNOLOGY MANAGER Inhaled Oxygen Concentration - - Weight 90.7 kg (200 lb) 04/05/2022 10:29 AM INFORMATION TECHNOLOGY MANAGER Height 161.3 cm (5' 3.5 ) 04/05/2022 10:29 AM CS T Body Mass Index 34.87 04/05/2022 10:29 AM INFORMATION TECHNOLOGY MANAGER Plan of Treatment Health Maintenance Due Date Last Done Comments Depression Screening 1945 Fall Risk Assessment 1945 Hepatitis C Screening 1945 Osteoporosis Screening-Bone Density Scan 1945 DTaP/Tdap/Td Vaccine (1 - Tdap) 06/25/1958 Hepatitis B Screening 06/25/1965 Well Visit 65+ 06/25/2012 Covid-19 Vaccine (4 2023-2 5 season) 2023 02/13/2021, 05/12/2020, 04/21/2020, Additional history exists Influenza Vaccine (#1) 2023 , 02/08/2019, 11/25/2017, Additional history exists Pneumococcal vaccine 65+ Completed 016, 10/20/2012, 11/23/2007 Zoster Vaccine Completed 01/12/2019, 10/12/2018 Breast Cancer Screening-Mammogram Discontinued 04/03/2022, 03/31/2021, 02/09/2020, Additional history exists Procedures Procedure Name Priority Date/Time Associated Diagnosis Comments DIGITAL MAMMOGRAPHY Routine 12/27/2012 1 0:57 AM INFORMATION TECHNOLOGY MANAGER from Last 3 Months or Most Recently Relevant to Health Maintenance Results * DIGITAL MAMMOGRAPHY (12/27/2012 10:57 AM INFORMATION TECHNOLOGY MANAGER) Anatomical Region Laterality Modality Breast Mammography 12/27/2012 10:5 7 AM INFORMATION TECHNOLOGY MANAGER Narrative 12/27/2012 9:54 PM INFORMATION TECHNOLOGY MANAGER Screening Mamm Bi Acc#: [id number] Performed by: cd DATE OF EXAM: Dec 27 2012 CLINICAL [...] Royer - 06/12/2016 Screening Mamm Bi Acc#: [id number] Performed by: cd DATE OF EXAM: Dec 27 2012 CLINICAL [...] 27 [id number] Ordering DR: ISAIAS PINO Attending DR: ISAIAS PINO Historical Provider MD KUMAR MAMMO PROCEDURES Tavia l Result from Last 3 Months or Most Recently Relevant to Health Maintenance Insurance [facility] MEDICARE SOLUTIONS MEDICARE SOLUTIONS [facility] Address: [address] [address] [place] [address] [employer] MEDICARE SOLUTIONS [facility] MEDICARE Address: [facility] [address] [place] [address] MEDICARE SOLUTIONS [employer] Care Teams Heating Element Winder Relationship Specialty Start Date End Date Isaias Pino MD [address] [place] [address] PCP - General Internal Medicine 02/05/23 Isaias Pino MD [address] [place] [address] 04/05/22
--- OUTSIDE RECORDS SUMMARY | 2024-05-05 09:46 | XMS_ITS | Encounter Summary ---
Author Organization [facility] Address [address] [place] [address] Care Team Providers Care Retail Bakery Manager Name Role Phone Isaias Cotto MD Primary Care Provider Unavailab Maryse Newman STONE CUTTER-MOBILITY ARCHITECT Unavailable [phone] Isaias Cotto MD Unavailable Unavailable Isaias Cotto MD Unavailable Unavailable Isaias Cotto MD Unavailable Unavailable Isaias Cotto MD Unavailable [facility] - Primary Care Provider Un available Kee Washington MD Primary Care Provider [phone] Encounter Details Date Type Department Care Team (Late st Contact Info) Description 01/15/2014 [facility] Outpatient Visit EXTERNAL NON-[facility] DEPT Isaias Cotto MD Retired Social History Tobacco Use Types Packs/Day Years [...] on file documented as of this encounter Goals Goal Patient Goal Type Associated Problems Recent Progress Patient-Stated? Author Blood Pressure < 140/90 Blood Pressure 138/62(2023 10:43 AM CDT) No Gisel Lagos HEMOGLOBIN A1C < 7.0 Result Component 7.4( 11:19 AM CDT) Katherine Lagos Gisel documented as of this encounter Visit Diagnoses Not on filedocumented in this encounter Additional Health Concerns Infection Onset Date Last Indicated Resolved Time COVID-19 Under Investigation 03/13/2021 03/13/2021 03/15/2021 6:11 AM TEST ENGINE MECHANIC CDIFF Under Investigation 04/01/2022 04/02/2022 4:11 PM TEST ENGINE MECHANIC documented as of this encounter Care Teams Retail Bakery Manager Relationship Specialty Start Date End Date Isaias Cotto MD PCP - General 01/16/08 02/28/24 Isaias Cotto MD Retired PCP - Attributed-[facility] [place] 03/25/21 07/10/21 Isaias Cotto MD Retired PCP - Attributed-[employer] [place] 10/23/21 12/09/22 Isaias Cotto MD Retired PCP - Attributed-[facility] [place] 04/23/23 05/13/23 Isaias Cotto MD Retired PCP - Attributed-[facility] [place] STL P4P 05/24/23 Pcp, [facility] Depaul Im-Fm PCP - General 02/29/24 04/26/24 Kee Washington MD [address] [facility] [address] [place] [address] PCP - General Family Medicine 04/27/24 Maryse Smith, STONE CUTTER-MOBILITY ARCHITECT Nurse Practitioner Nurse Practitioner 06/17/15 documented as of this encounter
--- OUTSIDE RECORDS SUMMARY | 2024-05-05 09:46 | XMS_ITS | Referral Summary ---
Author Organization [facility] Address [address] [facility] [place] [address] Care Team Providers Care Emergency Telecommunications Dispatcher Name Role Phone Maryse Smith APRN-LIFE INSURANCE AGENT Unavailable [phone] Isaias Cotto MD Unavailable Unavailable Kee Washington MD Primary Care Provider [phone] Source Comments [facility],non-owned Affiliates and Associated Physician Practices is amultiple site organization consisting of ambulatory clinics and hospital sitesin [place], [place], [place] and [place]. This disclosure is being madepursuant to the Care Everywhere program and may not contain all information available regarding this patient. Last updated 17.[facility] Encounters Date Type Department Care Team Description 04/26/[address] [id number] Isaias Cotto MD Refill Request 04/18/[address] [address] Isaias Cotto MD Refill Request 03/11/[address] [address] Isaias Cotto MD Refill Request 02/14/2024 Refill [facility] [address] [place] [address] Isaias Cotto MD MEDICATION REFILL from Last 3 Months Allergies Active Allergy Reactions Criticality Noted Date [...] tablet 05/26/19 23 Active Continuous Blood Gluc Aerial Photogrammetrist (FreeStyle Billie [address] [place] [address]) DEVIIndications:Di abetes Mellitus,Type 2 diabetes; insulin [...] needed. 2 tablet 03/17/19 24 Active Nystop 507476 UNIT/GM powderIndications: Skin yeast infection APPLY TO AFFECTED AREA TWICE DAILY 60 g 1 04/14/19 24 Active naloxone HCl (Narcan) 4 MG/0.1ML nasal sprayIndications:L kulwant term current use of opiate analgesic,Chronic pain syndrome [place] 1 (one) spray into the nose as needed 2 Each 07/06/19 24 Active sertraline (Zoloft) 50 MG tablet [...] tablet 3 01/25/20 24 Active HYDROcodone-acetam inophen ([place]) 5-325 MG tabletIndications: Spinal stenosis of lumbar [...] cell carcinoma 04/12/19 16 Overview (04/12/2015): 04/08/15-Dr HortonLgxuxf-XS-cugudvhswglj mohs Hydronephrosis, left 02/12/2015 Overview (02/12/2015): 02/08/15-Dr OdomGaelaj-NU-vzmeo cytology and a CT urogram recommended, cystoscopy normal Essential hypertension 01/30/2015 Cataracts, bilateral 04/29/2012 Overview (06/29/2014): 04/08/12-eye exam-Stickel 06/29/14-Dr BeyerOmexc-QM-epxipwqq eval after LPI OU Anatomical narrow angle 04/29/2012 Overview (04/29/2012): 04/08/12-eye exam-Stickel Referral of patient 03/18/2012 Overview (10/31/2012): 04/08/12 12/02/[address] Tello Bronson (L3) 10/07/[address] Kia Guevara (L1) Carotid bruit 03/26/2011 Overview (03/26/2011): Negative carotid ultrasound 12/2010. History of bladder cancer 11/05/2009 Overview (11/11/2009): History of this in the 1989's 11/01/09- Cysto- normal- Dr. Odom 11/01/09 Dr. Odom bladder mucosa was normal Lumbar spinal stenosis 12/12/2008 Overview (12/12/2008): Dr. Melchor- plan to have laminectomy Elevated cholesterol 06/05/2008 TOR (generalized anxiety disorder) 06/05/2008 Other screening mammogram 06/05/2008 Overview (06/05/2008): NEG NEG NEG NEG 02/22 NEG Piriformis tendonitis 08/31/2007 Hx of colonic polyps 06/14/2007 Overview (09/30/2015): 07/30/15-Dr Del VallePfgagb-hojxgdavppu-8 polyps Resolved Problems Problem Noted Date Diagnosed [...] polyp 08/16/2015 09/30/2015 Overview (08/16/2015): 07/30/15-Dr Del VallePzvaon-bfyrunjiocc-5 polyps Thyrotoxicosis 09/28/2014 09/28/2014 Overview (11/22/2014): Vasile [...] 06/05/2008 05/28/2010 Intra-aortic calcification 12/14/2007 1 04/01/2014 Immunizations Name Administration Dates Next Due INFLUENZA [...] Zoster Hzv Vacc Recombinant Inj Im 01/12/2019, Social History Tobacco Use Types Packs/Day Years [...] 36.4 C (97.5 F) 01/18/2023 11:00 AM CHILD WELFARE ASSISTANT Respiratory Rate 18 08/06/2021 4:49 PM CDT Oxygen Saturation 100% 01/18/2023 11:00 AM CHILD WELFARE ASSISTANT Inhaled Oxygen Concentration - - Weight 100.7 kg (222 lb) 11/25/2023 12:33 PM CDT Height 160 cm (5' 3 ) 11/25/2023 12:33 PM CDT Body Mass Index 39.33 11/25/2023 12:33 PM CDT Functional Status Functional Status Response Date of Assess ment Is person deaf or have serious hearing difficult y? No 03/13/2015 Is person blind or have serious difficulty seein g? No 03/13/2015 Does person have serious dif ficulty walking/climbing stairs? No 03/13/2015 Does person have difficulty dressing/bathing? No 03/13/2015 Does person have difficulty doing errands alone? No 03/13/2015 Cognitive Status Response Date of Assessm ent Does person have difficulty concentrating/remembering/making decisions? No 03/13/2015 Plan of Treatment Not on file Goals Goal Patient Goal Type Associated Problems Recent Progress Patient-Stated? Author Blood Pressure < 140/90 Blood Pressure 138/62(2023 10:43 AM CDT) No Gisel Lagos [facility] Lifestyle: Have labs drawn Lifestyle No Gisel Lagos Quit smoking / using tobacco Lifestyle No Gisel Lagos HEMOGLOBIN A1C < 7.0 Result Component 7.4( 11:19 AM CDT) Gisel Santos Medical Devices Implanted Type Area [employer] Salesperson Device Identifier Shelf Expiration Date Model / Serial / Lot Stent Uret Polaris Ultra 6.0fr X 26mm Implanted:Qty: 1 on 02/28/2015 by Lex Odom MD at [facility] Left: Ureter Eyebrid Blaze [employer] 11/22/2017 [id number] / / [id number] Procedures Procedure Name Priority Date/Time Associated Diagnosis [...] HEPATITIS C ANTIBODY Routine 01/30/2015 12:19 PM CHILD WELFARE ASSISTANT Need for hepatitis C screening test DEXA [...] search: Lung-RADS Lung Cancer Screening 3) Contact [facility] thoracic nurse coordinator ([phone]) Edited by Lazara Frye on 11/25/2023 3:03 [...] search: Lung-RADS Lung Cancer Screening 3) Contact [facility] thoracic nurse coordinator ([phone]) Edited by Lazara Frye on 11/25/2023 3:03 [...] - 11/25/2023 6:08 PM CDT Performed at: [address] [place] [address] [address] , [place], [place] [id number] Wired Sweatband Cutter: Amy Rodriguez [facility], Phone: [phone] Isaias Cotto MD LAB - URINE CHEMISTR Y ORDERABLES [facility] ACCOUNT BILL [address] [place] [address] * (ABNORMAL) HEMOGLOBIN A1C W EAG (11/25/2023 [...] for the measurement of HbA1c is a [facility] Glycohemoglobin Standardization Program (NGSP) certi fied method. Blood BLOOD SPECIMEN / Unknown 11/25/2023 11:19 AM CDT 11/25/2023 Narrative [facility] ACCOUNT BILL - 11/25/2023 6:08 PM CDT Performed at: [address] [place] [address] [address], [place], [place] [id number] Wired Sweatband Cutter: Amy Rodriguez [facility], Phone: [phone] Isaias Cotto MD LAB - CHEMISTRY CRISTOBAL NASH [facility] ACCOUNT BILL [address] [place] [address] * (ABNORMAL) COMPREHENSIVE METABOLIC PANEL (11/25/2023 11:19 [...] - 11/25/2023 6:08 PM CDT Performed at: [address] [place] [address] [address] [place], [place] [id number] Wired Sweatband Cutter: Amy Rodriguez [facility], Phone: [phone] Isaias Cotto MD LAB - CHEMISTRY CRISTOBAL NASH [facility] ACCOUNT BILL [address] [place] [address] * EYE EXAM (01/01/2021) Anatomical Region Laterality Modality Other 01/01/2021 Narrative 01/01/2021 Ordered by an unspecified provider. Scanned Document SCANNING ONLY * HEPATITIS C ANTIBODY (01/30/2015 12:19 PM CHILD WELFARE ASSISTANT) Hepatitis C Antibody Non Reactive Non Reactive [facility] INSURANCE BILL Comment: Non Reactive - Antibodies to Hepatitis C virus (HCV) were no t detected, result does not exclude early acute HCV infection. Blood specimen (specimen) BLOOD SPECIMEN / Unknown 01/30/2015 12:19 PM CHILD WELFARE ASSISTANT 01/30/2015 7:00 PM CHILD WELFARE ASSISTANT Narrative Resulting Agency Comment [facility] [address] [facility] [phone] Isaias Cotto MD LAB - CHEMISTRY CRISTOBAL NASH [facility] INSURANCE BILL * DEXA BONE DENSITY RHEUMAT READ (07/04/2013 11:19 AM CDT) Anatomical Region Laterality Modality Mammography Narrative 07/06/2013 2:02 PM CDT Lorne Dozier MD 07/06/2013 2:02 PM [facility] Imaging at [facility] [employer] Central DXA of spine and Hips Marian [...] Read by: Lorne Dozier MD Certified Clinical Board Of Education Secretary Office: [phone] Call Directly: [phone] [facility] Address: [facility] Procedure Note Lorne Dozier MD - 07/06/2013 2:01 PM CDT [facility] [employer] Central DXA of spine and Hips Marian [...] Read by: Lorne Dozier MD Certified Clinical Board Of Education Secretary Office: [phone] Call Directly: [phone] [facility] Address: [facility] Isaias Cotto MD DEXA ORDERABLES from Last 3 Months or Most Recently Relevant to Health Maintenance Administered Medications Advance Directives * Full Code (Latest Code Status on File) Date Activated Date Inactivated Comments 08/06/2021 12:32 PM 08/06/2021 7:55 PM * Full Code Date Activated Date Inactivated Comments 08/05/2021 2:07 PM 08/06/2021 12:32 PM Care Teams Emergency Telecommunications Dispatcher Relationship Specialty Start Date End Date Isaias Cotto MD Retired PCP - Attributed-[facility] ST[facility] P4P 05/24/23 Kee Washington MD [address] [place] [address] PCP - General Family Medicine 04/27/24 Maryse Smith, LOOP MACHINE OPERATOR-LIFE INSURANCE AGENT Nurse Practitioner Nurse Practitioner 06/17/15
--- OUTSIDE RECORDS SUMMARY | 2024-05-05 09:46 | XMS_ITS | Encounter Summary ---
Author Organization [facility] Address [address] [place] [address] Care Team Providers Care Corporate Travel Counselor Name Role Phone Unavailable Primary Care Provider Unavailabl e Encounter Details Date Type Department Care Team (Latest Contact Info) Description 04/30/2003 Outpatient Historical [facility] Luis Felipe Washington MD NO ADDRESS ON FILE HEALTH EXAM-GROUP SURVEY (Primary Dx) Social History Tobacco Use Types Packs/Day Years Used Date Smoking Tobacco: Never Assessed Comments Unknown Sex and Gender Information Value Date Recorded Sex Assigned at Not on file Legal Sex Female 4:25 AM DRYING TUMBLER OPERATOR Gender Identity Not on file Sexual Orientation Not on file documented as of this encounter Plan of Treatment Not on file documented as of this encounter Visit Diagnoses Diagnosis Health examination of defined subpopulation- Primary documented in this encounter
--- OUTSIDE RECORDS SUMMARY | 2024-05-05 09:47 | XMS_ITS | Patient Health Summary ---
Author Organization [facility] Address [address] [address] Care Team Providers Care Set Up / Operator Name Role Phone Maryse Smith APRN-LAW RESEARCHER Unavailable [phone] Isaias Pino MD Unavailable Unavailable Kee Washington MD Primary Care Provider [phone] Note from [facility],non-owned Affiliates and Associated Physician Practices is amultiple site organization consisting of ambulatory clinics and hospital sitesin [place], [place], [place]. This disclosure is being madepursuant to the Care Everywhere program and may not contain all information available regarding this patient. Last updated 17.[facility] Allergies * Ciprofloxacin(Angioedema) -High Criticality * Enalapril(Angioedema) -High Criticality * Metronidazole(Angioedema) -High Criticality * Morphine(Nausea and/or Vomiting) * Simvastatin(LEG CRAMPS) Medications * Be aware that medications may not be up to date on this document. Alwaysverify current medications with the patient. * Microlet Lancets MISC(Started 05/19/2021) Use 1 Each 2 times daily Reasons: Type 2 diabetes; E11.00; insulin use 3 refills by 05/19/2022 * aspirin (ASPIRIN) 81 MG chew tablet(Started 08/06/2021) Take 1 (one) tablet by mouth once daily * ketoconazole (Nizoral) 2 % cream(Started 01/12/2022) APPLY TO AFFECTED AREA EVERY DAY * OneTouch Verio test strip(Started 03/23/2022) TEST TWICE A DAY 3 refills by 03/23/2023 * ferrous sulfate 325 (65 FE) MG tablet(Started 05/25/2022) Take 1 (one) tablet by mouth once daily * ascorbic acid (Vitamin C) 500 MG tablet(Started 05/25/2022) Take 1 (one) tablet by mouth once daily * Continuous Blood Gluc Funeral Planning Counselor (FreeStyle Billie 2 [place] Systm) MAIKEL(Started 06/15/2022) Use 1 Each once daily Reasons: Diabetes, Type 2 diabetes; insulin use * Blood Pressure Monitor KIT(Started 06/16/2022) Use 1 Each once daily * UltiCare Insulin Syringe 31G X 5/16 1 ML syringe(Started 09/03/2022) USE 1 SYRINGE TWICE A DAY 3 refills by 09/03/2023 * folic acid (Folvite) 1 MG tablet(Started 10/15/2022) Take 1 (one) tablet by mouth once daily 4 refills by 10/15/2023 * cyanocobalamin (Vitamin B-12) 1000 MCG tablet(Started 01/18/2023) Take 1 (one) tablet by mouth once daily 1 refill by 01/18/2024 * Cholecalciferol (Vitamin D3) 25 MCG (1000 UT)(Started 01/18/2023) Take 1 (one) capsule by mouth once daily 1 refill by 01/18/2024 * LORazepam (Ativan) 1 MG tablet(Started 03/17/2023) Take 1 (one) tablet by mouth as directed Take 1 tab 1 hr prior to test then can take 2nd before test if needed. * Nystop 059735 UNIT/GM powder(Started 04/14/2023) APPLY TO AFFECTED AREA TWICE DAILY 1 refill by 04/13/2024 * naloxone HCl (Narcan) 4 MG/0.1ML nasal spray(Started 07/06/2023) [place] 1 (one) spray into the nose as needed * sertraline (Zoloft) 50 MG tablet(Started 09/24/2023) Take 2 (two) tablets by mouth once daily 1 refill by 09/23/2024 * Insulin Pen Needle 32G X 4 MM MISC(Started 09/24/2023) 1 Each by Injection route 2 times daily 1 refill by 09/23/2024 * predniSONE (Deltasone) 10 MG tablet(Started 11/25/2023) Take 1 (one) tablet by mouth once daily * Semaglutide (2 MG/DOSE) 8 MG/3ML Subcutaneous Solution Pen-injector (Ozempic (2 MG/DOSE))(Started 11/26/2023) Inject 2 (two) mg subcutaneously every 7 days 4 refills by 11/25/2024 * furosemide (Lasix) 40 MG tablet(Started 12/02/2023) Take 1 (one) tablet by mouth once daily 1 refill by 12/01/2024 * allopurinol (Zyloprim) 300 MG tablet(Started 12/02/2023) TAKE ONE TABLET BY MOUTH DAILY AT 9 AM 1 refill by 12/01/2024 * amLODIPine (Norvasc) 5 MG tablet(Started 12/02/2023) Take 1 (one) tablet by mouth once daily 1 refill by 12/01/2024 * Continuous Glucose Sensor (FreeStyle Billie 2 Sensor Systm) [facility](Started 01/10/2024) USE 1 (ONE) EACH EVERY 14 DAYS REASONS: DIABETES, TYPE 2 DIABETS INSULIN USE 3 refills by 01/09/2025 * metoprolol succinate XL 24hr (Toprol XL) 100 MG tablet(Started 01/25/2024) TAKE 1/2 TABLET BY MOUTH DAILY 3 refills by 01/24/2025 * levothyroxine (Synthroid) 100 MCG tablet(Started 01/25/2024) TAKE ONE TABLET BY MOUTH EVERY DAY 3 refills by 01/24/2025 * pravastatin (Pravachol) 40 MG tablet(Started 01/25/2024) TAKE ONE TABLET BY MOUTH DAILY AT BEDTIME 3 refills by 01/24/2025 * HYDROcodone-acetaminophen ([place]) 5-325 MG tablet(Started 02/14/2024) TAKE ONE TABLET BY MOUTH EVERY 6 HOURS NEEDED FOR PAIN * HumuLIN 70/30 KWIKPEN pen(Started 05/01/2024) INJECT 40 UNITS TWICE DAILY BEFORE BREAKFAST AND SUPPER Ended Medications* insulin isophane & Reg, human, 70/30 (HumuLIN 70/30 KWIKPEN) pen(Started 09/24/2023)(Discontinued) Inject 40 (forty) Units subcutaneously 2 times daily, before breakfast and supper 1 refill by 09/23/2024 Active Problems Problem Noted Date Diagnosed Date COVID 11/25/2023 Encounter for Medicare anjel zapata examination with abnormal findings 11/25/2023 Meningioma 03/17/2023 Vitamin D deficiency 01/18/2023 Systolic murmur 09/24/2022 Fatigue 09/24/2022 Vitamin B12 deficiency 09/24/2022 Grade I diastolic dysfunction 04/09/2021 Arthritis of spine 04/25/2019 Chronic pain of both knees 04/25/2019 Uncontrolled type 2 diabetes mellitus with hyper glycemia 04/25/2019 Acute idiopathic gout of right foot 05/04/2018 SOB (shortness of breath) 05/04/2018 Uncontrolled type 2 diabetes mellitus with hyperosmolarity without coma, without long-term current use of insulin 03/02/2018 CKD (chronic kidney disease) stage 3, GFR 30-59 ml/min 11/05/2017 Personal history of tobacco use, presenting hazards to health 11/05/2017 Diabetes mellitus with stage 3 chronic kidney di sease 11/03/2017 At standard risk for fall 11/05/2016 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 History of nodular basal cell carcinoma 04/12/19 16 Hydronephrosis, left 02/12/2015 Essential hypertension 01/30/2015 Cataracts, bilateral 04/29/2012 Anatomical narrow angle 04/29/2012 Referral of patient 03/18/2012 Carotid bruit 03/26/2011 History of bladder cancer 11/05/2009 Lumbar spinal stenosis 12/12/2008 Elevated cholesterol 06/05/2008 TOR (generalized anxiety disorder) 06/05/2008 Other screening mammogram 06/05/2008 Piriformis tendonitis 08/31/2007 Hx of colonic polyps 06/14/2007 Resolved Problems Problem Noted Date Diagnosed Date Resolved Date Panlobular emphysema 02/21/2020 024 Class 2 severe obesity with serious comorbidity and body mass index (BMI) of 37.0 to 37.9 in adult 03/08/2018 05/09/2020 Essential hypertension, benign 03/08/2018 02/21/2020 Chronic obstructive pulmonary disease 11/05/2017 07/06/2023 Malignant neoplasm of urinary bladder 06/09/2016 06/02/2021 BMI 35.0-35.9,adult 02/05/2016 03/02/19 19 BMI 36.0-36.9,adult 10/01/2015 03/02/19 19 Colon polyp 08/16/2015 09/30/2015 Thyrotoxicosis 09/28/2014 09/28/2014 Hyperthyroidism 06/10/2012 09/01/2016 Aortic atherosclerosis 03/17/201204/24 Hypothyroidism 08/20/2011 06/10/2012 Type II or unspecified type diabetes mellitus without mention of complication, uncontrolled 02/27/2010 05/28/2010 Hypertension 06/05/2008 01/15/2009 Type II or unspecified type diabetes mellitus without mention of complication, not stated as uncontrolled 06/05/2008 05/28/2010 Intra-aortic calcification 12/14/2007 1 04/01/2014 Immunizations * INFLUENZA VACCINE, TRIV. (AFLURIA, FLUZONE TRIVALENT; 6MO+) (IIV3)(Given 11/21/2011, 11/27/2009) * Covid Moderna primary monovalent 12+ yr 0.5mL(Given 04/21/2020) * Covid Pfizer primary monovalent 12+ yr 0.3mL Purple cap(Given 02/13/2021) * INFLUENZA VACCINE(Given 11/25/2017, 02/01/2017, 11/26/2015, 12/19/2014, 11/12/2012, 11/21/2011, 11/12/2010, 11/22/2008, 11/23/2007) * INFLUENZA VACCINE, ADJUVANTED, QUADR. (FLUAD QUADRIVALENT; 65Y+) (AIIV4)(Given 10/29/2022) * INFLUENZA VACCINE, ADJUVANTED, TRIV. (FLUAD TRIVALENT; 65Y+) (AIIV3)(Given 02/08/2019, 11/25/2017) * INFLUENZA VACCINE, HIGH-DOSE, QUADR. (FLUZONE HIGH-DOSE QUADRIVALENT; 65Y+), 0.7 ML (HD-IIV4)(Given 12/15/2021, 01/03/2021, 11/07/2019, 02/01/2017) * INFLUENZA VACCINE, HIGH-DOSE, TRIV. 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 Respiratory Rate 18 08/06/2021 4:49 PM CDT Oxygen Saturation 100% 01/18/2023 11:00 AM CONFIGURATION MANAGEMENT MANAGER Inhaled Oxygen Concentration - - Weight 100.7 kg (222 lb) 11/25/2023 12:33 PM CDT Height 160 cm (5' 3 ) 11/25/2023 12:33 PM CDT Body Mass Index 39.33 11/25/2023 12:33 PM CDT Medical Devices Implanted Type Area Nuclear Operator Device Identifier Shelf Expiration Date Model / Serial / Lot Stent Uret Polaris Ultra 6.0fr X 26mm Implanted:Qty: 1 on 02/28/2015 by Lex Odom MD at [facility] Left: Ureter [employer] 11/22/2017 [id number] / / [id number] Procedures * MAMMO BILAT SCREENING W ANTONIO(Performed 11/25/2023) Performed for Encounter for screening mammogram for breast cancer * CT LUNG SCREEN LOW DOSE(Performed 11/25/2023) Performed for Encounter for screening for lung cancer * T3 TOTAL(Performed 11/25/2023) 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 * MICROALB/CREAT RATIO URINE RANDOM PANEL(Performed 11/25/2023) Performed for Diabetes mellitus with stage 3 chronic kidney disease (HCC) * T4 FREE(Performed 11/25/2023) 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 * TSH(Performed 11/25/2023) 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 * CBC W AUTO DIFFERENTIAL(Performed 11/25/2023) Performed for COVID * HEMOGLOBIN A1C W EAG(Performed 11/25/2023) Performed for Diabetes mellitus with stage 3 chronic kidney disease (HCC) * LIPID PROFILE W TCHOL/HDL(Performed 11/25/2023) Performed for Diabetes mellitus with stage 3 chronic kidney disease (HCC) * COMPREHENSIVE METABOLIC PANEL(Performed 11/25/2023) Performed for Diabetes mellitus with stage 3 chronic kidney disease (HCC), Stage 3a chronic kidney disease (HCC) * T3 TOTAL(Performed 07/06/2023) 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 * T4 FREE(Performed 07/06/2023) 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 * VITAMIN D 25-HYDROXY(Performed 07/06/2023) Performed for Vitamin D deficiency * TSH(Performed 07/06/2023) 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 * LIPID PROFILE W TCHOL/HDL(Performed 07/06/2023) Performed for Elevated cholesterol * CBC W AUTO DIFFERENTIAL(Performed 07/06/2023) Performed for Folic acid deficiency, B12 deficiency * VITAMIN B12 FOLATE PANEL(Performed 07/06/2023) Performed for Folic acid deficiency, B12 deficiency * COMPREHENSIVE METABOLIC PANEL(Performed 07/06/2023) Performed for Diabetes mellitus with stage 3 chronic kidney disease (HCC) * OPIATES URINE CONFIRMATION(Performed 07/06/2023) 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, Chronic pain syndrome * DRUG SCREEN URINE PANEL 9(Performed 07/06/2023) Performed for [facility] current use of opiate analgesic, Chronic pain syndrome * MRI BRAIN WWO CONTRAST(Performed 06/14/2023) Performed for Meningioma (HCC) * CREATININE - POCT INTERFACED(Performed 06/14/2023) * AMB REFERRAL TO NEUROLOGY(Performed 03/17/2023) Performed for Balance problem, Meningioma (HCC) * MICROALB/CREAT RATIO URINE RANDOM PANEL(Performed 02/18/2023) Performed for Diabetes mellitus with stage 3 chronic kidney disease (HCC) * HEMOGLOBIN A1C W EAG(Performed 02/18/2023) Performed for Diabetes mellitus with stage 3 chronic kidney disease (HCC) * LIPID PROFILE W TCHOL/HDL(Performed 02/18/2023) Performed for Elevated cholesterol, Diabetes mellitus with stage 3 chronic kidney disease (HCC) * COMPREHENSIVE METABOLIC PANEL(Performed 02/18/2023) Performed for Diabetes mellitus with stage 3 chronic kidney disease (HCC) * LAB RESULTS ORDER(Performed 01/29/2023) * MRI BRAIN WWO CONTRAST(Performed 01/29/2023) * MRI BRAIN W CONTRAST(Performed 01/29/2023) Performed for Fall, initial encounter, Balance problem * CARDIAC STRESS TEST ORDER(Performed 09/24/2022) * MICROALB/CREAT RATIO URINE RANDOM PANEL(Performed 09/24/2022) Performed for Diabetes mellitus with stage 3 chronic kidney disease (HCC) * HEMOGLOBIN A1C W EAG(Performed 09/24/2022) Performed for Diabetes mellitus with stage 3 chronic kidney disease (HCC) * TSH(Performed 09/24/2022) Performed for Fatigue, unspecified type * LIPID PROFILE W TCHOL/HDL(Performed 09/24/2022) Performed for Diabetes mellitus with stage 3 chronic kidney disease (HCC) * VITAMIN B12 FOLATE PANEL(Performed 09/24/2022) Performed for Vitamin B12 deficiency * IRON + TRANSFERRIN PANEL(Performed 09/24/2022) Performed for Fatigue, unspecified type * COMPREHENSIVE METABOLIC PANEL(Performed 09/24/2022) Performed for Stage 3a chronic kidney disease (HCC) * CBC W AUTO DIFFERENTIAL(Performed 09/24/2022) Performed for Vitamin B12 deficiency * CT CHEST WO CONTRAST(Performed 08/10/2022) Performed for Panlobular emphysema (HCC), Multiple lung nodules on CT * BASIC METABOLIC PANEL (CALCIUM TOTAL)(Performed 08/10/2022) Performed for Hypokalemia * BASIC METABOLIC PANEL (CALCIUM TOTAL)(Performed 07/27/2022) Performed for Hypokalemia * BASIC METABOLIC PANEL (CALCIUM TOTAL)(Performed 07/16/2022) Performed for Leg edema * IMAGING/RADIOLOGY/XRAY RESULTS ORDER(Performed 06/16/2022) * MICROALB/CREAT RATIO URINE RANDOM PANEL(Performed 05/25/2022) Performed for Diabetes mellitus with stage 3 chronic kidney disease (HCC) * T4 FREE(Performed 05/25/2022) 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 * TSH(Performed 05/25/2022) 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 * HEMOGLOBIN A1C W EAG(Performed 05/25/2022) Performed for Diabetes mellitus with stage 3 chronic kidney disease (HCC) * LIPID PROFILE W TCHOL/HDL(Performed 05/25/2022) Performed for Diabetes mellitus with stage 3 chronic kidney disease (HCC), Elevated cholesterol * COMPREHENSIVE METABOLIC PANEL(Performed 05/25/2022) Performed for Stage 3a chronic kidney disease (HCC), Diabetes mellitus with stage 3 chronic kidney disease (HCC), Essential hypertension * VITAMIN B12 FOLATE PANEL(Performed 05/25/2022) Performed for Vitamin B12 deficiency * CBC W AUTO DIFFERENTIAL(Performed 05/25/2022) Performed for History of bladder cancer * US RETROPERITONEAL LIMITED(Performed 04/13/2022) Performed for Renal mass * CT ABDOMEN PELVIS WO CONTRAST(Performed 04/03/2022) Performed for Diarrhea, unspecified type, LLQ pain * MAMMO BILAT SCREENING W ANTONIO(Performed 04/03/2022) Performed for Encounter for screening mammogram for malignant neoplasm of breast * C DIFFICILE TOXIN A+B(Performed 04/02/2022) Performed for Diarrhea, unspecified type * O+P PANEL(Performed 04/02/2022) Performed for Diarrhea, unspecified type * CULTURE STOOL PANEL(Performed 04/02/2022) Performed for Diarrhea, unspecified type * IRON + TIBC PANEL(Performed 04/01/2022) * FERRITIN(Performed 04/01/2022) * HEMOGLOBIN A1C(Performed 04/01/2022) Performed for Diabetes mellitus with stage 3 chronic kidney disease (HCC) * CBC W AUTO DIFFERENTIAL(Performed 04/01/2022) Performed for Diarrhea, unspecified type * TSH(Performed 04/01/2022) Performed for Diarrhea, unspecified type * COMPREHENSIVE METABOLIC PANEL(Performed 04/01/2022) Performed for Diarrhea, unspecified type * URINALYSIS MICROSCOPIC ONLY REFLEXED(Performed 04/01/2022) Performed for LLQ pain * URINALYSIS W/MICROSCOPIC REFLEX TO CULTURE(Performed 04/01/2022) Performed for LLQ pain * CULTURE URINE COMPREHENSIVE(Performed 04/01/2022) Performed for LLQ pain * PATHOLOGY/CYTOLOGY REPORT ORDER(Performed 03/12/2022) * COLONOSCOPY(Performed 03/10/2022) * CULTURE URINE(Performed 01/26/2022) Performed for FUO (fever of unknown origin) * C-PEPTIDE(Performed 01/26/2022) Performed for FUO (fever of unknown origin) * C-REACTIVE PROTEIN(Performed 01/26/2022) Performed for FUO (fever of unknown origin) * ERYTHROCYTE SEDIMENTATION RATE(Performed 01/26/2022) Performed for FUO (fever of unknown origin) * TSH(Performed 01/26/2022) Performed for FUO (fever of unknown origin) * VITAMIN B12 FOLATE PANEL(Performed 01/26/2022) Performed for Vitamin B12 deficiency * CBC W AUTO DIFFERENTIAL(Performed 01/26/2022) Performed for FUO (fever of unknown origin) * URINALYSIS AUTO - POINT OF CARE(Performed 01/26/2022) Performed for FUO (fever of unknown origin) * CT LUNG SCREEN LOW DOSE(Performed 01/22/2022) Performed for Personal history of tobacco use, presenting hazards to health * VITAMIN B12 FOLATE PANEL(Performed 01/08/2022) Performed for Dry mouth * LIPID PROFILE(Performed 01/08/2022) Performed for Diabetes mellitus with stage 3 chronic kidney disease (HCC) * MICROALB/CREAT RATIO URINE RANDOM PANEL(Performed 01/08/2022) Performed for Diabetes mellitus with stage 3 chronic kidney disease (HCC) * BASIC METABOLIC PANEL (CALCIUM TOTAL)(Performed 01/08/2022) Performed for Dry mouth * SS-A/SS-B (SJOGREN'S) ANTIBODY PANEL(Performed 01/08/2022) Performed for Dry mouth * HEMOGLOBIN A1C - POINT OF CARE (AMB)(Performed 01/08/2022) Performed for Diabetes mellitus with stage 3 chronic kidney disease (HCC) * URINALYSIS MICROSCOPIC ONLY REFLEXED(Performed 09/04/2021) Performed for Acute cystitis without hematuria * BASIC METABOLIC PANEL (CALCIUM TOTAL)(Performed 09/04/2021) Performed for Acute cystitis without hematuria * URINALYSIS W/MICROSCOPIC REFLEX TO CULTURE(Performed 09/04/2021) Performed for Acute cystitis without hematuria * CULTURE URINE COMPREHENSIVE(Performed 09/04/2021) Performed for Acute cystitis without hematuria * CARDIAC RHYTHM STRIP ORDER(Performed 08/11/2021) * MICROALB/CREAT RATIO URINE RANDOM PANEL(Performed 08/11/2021) Performed for Diabetes mellitus with stage 3 chronic kidney disease (HCC) * HEMOGLOBIN A1C W EAG(Performed 08/11/2021) Performed for Diabetes mellitus with stage 3 chronic kidney disease (HCC) * CBC W AUTO DIFFERENTIAL(Performed 08/11/2021) Performed for Blood loss * BASIC METABOLIC PANEL (CALCIUM TOTAL)(Performed 08/11/2021) Performed for Essential hypertension * CARDIAC PROCEDURE ORDER(Performed 08/09/2021) * GLUCOSE - POINT OF CARE(Performed 08/06/2021) * GLUCOSE - POINT OF CARE(Performed 08/06/2021) * EKG 12-LEAD(Performed 08/06/2021) Performed for SOB (shortness of breath), Coronary artery disease involving [place] coronary artery of [place] heart with angina pectoris (HCC) * LIPID PROFILE(Performed 08/06/2021) Performed for Coronary artery disease involving [place] coronary artery of [place] heart with angina pectoris (HCC) * BASIC METABOLIC PANEL (CALCIUM TOTAL)(Performed 08/06/2021) Performed for Coronary artery disease involving [place] coronary artery of [place] heart with angina pectoris (HCC) * CBC W AUTO DIFFERENTIAL(Performed 08/06/2021) Performed for Coronary artery disease involving [place] coronary artery of [place] heart with angina pectoris (HCC) * PTT(Performed 08/05/2021) Performed for Coronary artery disease involving [place] coronary artery of [place] heart with angina pectoris (HCC) * PTT(Performed 08/05/2021) Performed for Coronary artery disease involving [place] coronary artery of [place] heart with angina pectoris (HCC) * CARDIAC CATH(Performed 08/05/2021) * ACT LR - POCT ([facility])(Performed 08/05/2021) * ACT LR - POCT ([facility])(Performed 08/05/2021) * GLUCOSE - POINT OF CARE(Performed 08/05/2021) * ACT LR - POCT ([facility])(Performed 08/05/2021) * CBC W AUTO DIFFERENTIAL(Performed 08/05/2021) Performed for SOB (shortness of breath) * BASIC METABOLIC PANEL (CALCIUM TOTAL)(Performed 08/05/2021) Performed for SOB (shortness of breath) * CARDIAC CATH CONSULT(Performed 08/05/2021) * CT CARDIAC ANGIO W MICHEL EVAL(Performed 07/22/2021) Performed for Chest discomfort, Abnormal cardiovascular stress test * CREATININE - POCT INTERFACED(Performed 07/22/2021) * ECHOCARDIOGRAM STRESS(Performed 05/06/2021) Performed for SOB (shortness of breath), Essential hypertension, Elevated cholesterol, History of diabetes mellitus, Chest discomfort * URINALYSIS MICROSCOPIC ONLY REFLEXED(Performed 04/28/2021) Performed for Dysuria * URINALYSIS W/MICROSCOPIC REFLEX TO CULTURE(Performed 04/28/2021) Performed for Dysuria * COMPREHENSIVE METABOLIC PANEL(Performed 04/28/2021) Performed for Essential hypertension * CBC W AUTO DIFFERENTIAL(Performed 04/28/2021) Performed for Essential hypertension * VITAMIN B12 FOLATE PANEL(Performed 04/23/2021) Performed for Vitamin B12 deficiency, Folic acid deficiency * REF LAB-PLEASE NOTE(Performed 04/23/2021) * T4 FREE(Performed 04/23/2021) 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 * T3 FREE(Performed 04/23/2021) 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 * TSH(Performed 04/23/2021) 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 * LIPID PROFILE(Performed 04/23/2021) Performed for Elevated cholesterol * URINALYSIS AUTO - POINT OF CARE(Performed 04/10/2021) Performed for Dysuria * MICROALB/CREAT RATIO URINE RANDOM PANEL(Performed 04/10/2021) Performed for Essential hypertension * TSH(Performed 04/10/2021) Performed for Essential hypertension * VITAMIN D 25-HYDROXY(Performed 04/10/2021) Performed for Vitamin D deficiency * VITAMIN B12 FOLATE PANEL(Performed 04/10/2021) Performed for Fatigue, unspecified type * LIPID PROFILE(Performed 04/10/2021) Performed for Elevated cholesterol * HEMOGLOBIN A1C(Performed 04/10/2021) Performed for Uncontrolled type 2 diabetes mellitus with hyperglycemia (HCC) * COMPREHENSIVE METABOLIC PANEL(Performed 04/10/2021) Performed for Essential hypertension * CBC W AUTO DIFFERENTIAL(Performed 04/10/2021) Performed for Essential hypertension * URINALYSIS MICROSCOPIC ONLY REFLEXED(Performed 04/10/2021) Performed for Dysuria * URINALYSIS W/MICROSCOPIC REFLEX TO CULTURE(Performed 04/10/2021) Performed for Dysuria * CULTURE URINE COMPREHENSIVE(Performed 04/10/2021) Performed for Dysuria * ECHOCARDIOGRAM 2D WITH DOPPLER(Performed 03/31/2021) Performed for Murmur * MAMMO BILAT SCREENING W ANTONIO(Performed 03/31/2021) Performed for Visit for screening mammogram * XR CHEST 2VW(Performed 03/13/2021) Performed for Congestion of nasal sinus * INFLUENZA A+B - POINT OF CARE (AMB)(Performed 03/13/2021) Performed for Congestion of nasal sinus * SARS-COV-2 (COVID-19) AG (AMB) POCT(Performed 03/13/2021) Performed for Congestion of nasal sinus * SARS-COV-2 PCR 2 DAY TAT(Performed 03/13/2021) Performed for Congestion of nasal sinus * COVID-19 SARS-COV-2 PCR QUAL ([facility])(Performed 03/13/2021) Performed for Congestion of nasal sinus * EYE EXAM(Performed 01/01/2021) * VITAMIN B12 FOLATE PANEL(Performed 09/26/2020) Performed for Uncontrolled type 2 diabetes mellitus with hyperglycemia (HCC) * CBC W AUTO DIFFERENTIAL(Performed 09/26/2020) Performed for Elevated uric acid in blood * T4 FREE(Performed 09/26/2020) 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 * URIC ACID BLOOD(Performed 09/26/2020) Performed for Elevated uric acid in blood * TSH(Performed 09/26/2020) 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 * HEMOGLOBIN A1C W EAG(Performed 09/26/2020) Performed for Uncontrolled type 2 diabetes mellitus with hyperglycemia (HCC) * LIPID PROFILE W TCHOL/HDL(Performed 09/26/2020) Performed for Essential hypertension * COMPREHENSIVE METABOLIC PANEL(Performed 09/26/2020) Performed for Essential hypertension * T3 TOTAL(Performed 09/26/2020) 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 * MICROALB/CREAT RATIO URINE RANDOM PANEL(Performed 09/26/2020) Performed for Uncontrolled type 2 diabetes mellitus with hyperglycemia (HCC) * CT LUNG SCREEN LOW DOSE(Performed 09/17/2020) Performed for Encounter for screening for lung cancer * CBC W AUTO DIFFERENTIAL(Performed 05/09/2020) Performed for Vitamin B12 deficiency, Panlobular emphysema (HCC), Malignant neoplasm of urinary bladder, unspecified site (HCC) * TSH(Performed 05/09/2020) 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, Morbid obesity (HCC), Class 2 severe obesity with serious comorbidity and body mass index (BMI) of 39.0 to 39.9 in adult, unspecified obesity type (HCC) * VITAMIN B12 FOLATE PANEL(Performed 05/09/2020) Performed for Vitamin B12 deficiency * HEMOGLOBIN A1C W EAG(Performed 05/09/2020) Performed for Uncontrolled type 2 diabetes mellitus with hyperglycemia (HCC), Diabetes mellitus with stage 3 chronic kidney disease (HCC) * LIPID PROFILE W TCHOL/HDL(Performed 05/09/2020) Performed for Uncontrolled type 2 diabetes mellitus with hyperglycemia (HCC), Elevated cholesterol * COMPREHENSIVE METABOLIC PANEL(Performed 05/09/2020) Performed for Uncontrolled type 2 diabetes mellitus with hyperglycemia (HCC), Essential hypertension * CT LUNG SCREEN LOW DOSE(Performed 02/09/2020) Performed for Personal history of tobacco use, presenting hazards to health * MAMMO BILAT SCREENING(Performed 02/09/2020) Performed for Breast cancer screening by mammogram * T4 FREE(Performed 01/04/2020) 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 * TSH(Performed 01/04/2020) 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 * CBC W AUTO DIFFERENTIAL(Performed 01/04/2020) Performed for Vitamin B12 deficiency * VITAMIN B12 FOLATE PANEL(Performed 01/04/2020) Performed for Uncontrolled type 2 diabetes mellitus with hyperglycemia (HCC), Vitamin B12 deficiency * MICROALB/CREAT RATIO URINE RANDOM PANEL(Performed 01/04/2020) Performed for Uncontrolled type 2 diabetes mellitus with hyperglycemia (HCC) * HEMOGLOBIN A1C W EAG(Performed 01/04/2020) Performed for Uncontrolled type 2 diabetes mellitus with hyperglycemia (HCC) * LIPID PROFILE W TCHOL/HDL(Performed 01/04/2020) Performed for Elevated cholesterol * COMPREHENSIVE METABOLIC PANEL(Performed 01/04/2020) Performed for Uncontrolled type 2 diabetes mellitus with hyperglycemia (HCC), Essential hypertension * T3 TOTAL(Performed 08/30/2019) 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 * T4 FREE(Performed 08/30/2019) 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 * TSH(Performed 08/30/2019) 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 * VITAMIN B12 FOLATE PANEL(Performed 08/30/2019) Performed for Uncontrolled type 2 diabetes mellitus with hyperglycemia (HCC) * LIPID PROFILE W TCHOL/HDL(Performed 08/30/2019) Performed for Uncontrolled type 2 diabetes mellitus with hyperglycemia (HCC), Elevated cholesterol * HEMOGLOBIN A1C W EAG(Performed 08/30/2019) Performed for Uncontrolled type 2 diabetes mellitus with hyperglycemia (HCC) * COMPREHENSIVE METABOLIC PANEL(Performed 08/30/2019) Performed for Uncontrolled type 2 diabetes mellitus with hyperglycemia (HCC), Essential hypertension * MICROALB/CREAT RATIO URINE RANDOM PANEL(Performed 04/25/2019) Performed for Uncontrolled type 2 diabetes mellitus with hyperglycemia (HCC), Diabetes mellitus with stage 3 chronic kidney disease (HCC) * TSH(Performed 04/25/2019) 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 * HEMOGLOBIN A1C W EAG(Performed 04/25/2019) Performed for Uncontrolled type 2 diabetes mellitus with hyperglycemia (HCC), Diabetes mellitus with stage 3 chronic kidney disease (HCC) * LIPID PROFILE W TCHOL/HDL(Performed 04/25/2019) Performed for Elevated cholesterol, Class 2 severe obesity due to excess calories with serious comorbidity and body mass index (BMI) of 37.0 to 37.9 in adult ([facility]) * COMPREHENSIVE METABOLIC PANEL(Performed 04/25/2019) Performed for Elevated cholesterol, Uncontrolled type 2 diabetes mellitus with hyperglycemia (HCC),Essential hypertension, Diabetes mellitus with stage 3 chronic kidney disease (HCC) * T4 FREE(Performed 04/25/2019) 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 * MAMMO BILAT SCREENING(Performed 01/23/2019) Performed for Breast cancer screening by mammogram * CT LUNG SCREEN LOW DOSE(Performed 01/23/2019) Performed for Pulmonary nodule * VAS LEFT VENOUS DUPLEX LE(Performed 11/24/2018) Performed for Left foot pain * MICROALB/CREAT RATIO URINE RANDOM PANEL(Performed 11/24/2018) Performed for Uncontrolled type 2 diabetes mellitus with hyperglycemia (HCC), Diabetes mellitus with stage 3 chronic kidney disease (HCC) * T4 FREE(Performed 11/24/2018) 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 * TSH(Performed 11/24/2018) 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 * ERYTHROCYTE SEDIMENTATION RATE(Performed 11/24/2018) Performed for Left foot pain * C-REACTIVE PROTEIN(Performed 11/24/2018) Performed for Left foot pain * VITAMIN B12 FOLATE PANEL(Performed 11/24/2018) Performed for Uncontrolled type 2 diabetes mellitus with hyperglycemia (HCC), Diabetes mellitus with stage 3 chronic kidney disease (HCC) * COMPREHENSIVE METABOLIC PANEL(Performed 11/24/2018) Performed for Uncontrolled type 2 diabetes mellitus with hyperglycemia (HCC), Diabetes mellitus with stage 3 chronic kidney disease (HCC), Essential hypertension, Essential hypertension, benign * URIC ACID BLOOD(Performed 11/24/2018) Performed for Left foot pain * LIPID PROFILE W TCHOL/HDL(Performed 11/24/2018) Performed for Uncontrolled type 2 diabetes mellitus with hyperglycemia (HCC), Diabetes mellitus with stage 3 chronic kidney disease (HCC), Elevated cholesterol * HEMOGLOBIN A1C W EAG(Performed 11/24/2018) Performed for Uncontrolled type 2 diabetes mellitus with hyperglycemia (HCC), Diabetes mellitus with stage 3 chronic kidney disease (HCC) * CBC W AUTO DIFFERENTIAL(Performed 11/24/2018) Performed for Left foot pain * XR FOOT LEFT 3VW OR MORE(Performed 11/24/2018) Performed for Left foot pain * VITAMIN B12 FOLATE PANEL(Performed 07/07/2018) Performed for Uncontrolled type 2 diabetes mellitus with hyperosmolarity without coma, without long-term current use of insulin ([facility]), Diabetes mellitus with stage 3 chronic kidney disease (HCC) * HEMOGLOBIN A1C W EAG(Performed 07/07/2018) Performed for Uncontrolled type 2 diabetes mellitus with hyperosmolarity without coma, without long-term current use of insulin ([facility]), Diabetes mellitus with stage 3 chronic kidney disease (HCC) * LIPID PROFILE W TCHOL/HDL(Performed 07/07/2018) Performed for Uncontrolled type 2 diabetes mellitus with hyperosmolarity without coma, without long-term current use of insulin ([facility]), Diabetes mellitus with stage 3 chronic kidney disease ([facility]), Class 2 severe obesity due to excess calories with serious comorbidity and body mass index (BMI) of 36.0 to 36.9 in adult ([facility]) * COMPREHENSIVE METABOLIC PANEL(Performed 07/07/2018) Performed for Uncontrolled type 2 diabetes mellitus with hyperosmolarity without coma, without long-term current use of insulin (HCC), Diabetes mellitus with stage 3 chronic kidney disease (HCC), CKDstage 3 due to type 2 diabetes mellitus (HCC), Essential hypertension * MICROALB/CREAT RATIO URINE RANDOM PANEL(Performed 07/07/2018) Performed for Uncontrolled type 2 diabetes mellitus with hyperosmolarity without coma, without long-term current use of insulin (HCC), Diabetes mellitus with stage 3 chronic kidney disease (HCC) * COMPLETE PFT W/WO BRONCHODILATOR(Performed 05/04/2018) Performed for SOB (shortness of breath) * TSH(Performed 03/08/2018) 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 * CBC W AUTO DIFFERENTIAL(Performed 03/08/2018) Performed for 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 mellitus (HCC) * C-PEPTIDE(Performed 03/08/2018) Performed for Diabetes mellitus with stage 3 chronic kidney disease (HCC) * MICROALB/CREAT RATIO URINE RANDOM PANEL(Performed 03/08/2018) Performed for Diabetes mellitus with stage 3 chronic kidney disease (HCC) * HEMOGLOBIN A1C W EAG(Performed 03/08/2018) Performed for Diabetes mellitus with stage 3 chronic kidney disease (HCC) * LIPID PROFILE W TCHOL/HDL(Performed 03/08/2018) Performed for Diabetes mellitus with stage 3 chronic kidney disease (HCC) * COMPREHENSIVE METABOLIC PANEL(Performed 03/08/2018) Performed for 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 mellitus (HCC), Diabetes mellitus with stage 3 chronic kidney disease (HCC), Essential hypertension, benign * MAMMO BILAT SCREENING(Performed 11/15/2017) Performed for Screening mammogram, encounter for * CT LUNG SCREEN LOW DOSE(Performed 11/15/2017) Performed for Pulmonary nodule * COMPREHENSIVE METABOLIC PANEL(Performed 11/03/2017) Performed for Essential hypertension, Elevated cholesterol, Diabetes mellitus with stage 3 chronic kidney disease (HCC), 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 mellitus (HCC) * T3 TOTAL(Performed 11/03/2017) 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 * T4 FREE(Performed 11/03/2017) 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 * TSH(Performed 11/03/2017) 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 * MICROALB/CREAT RATIO URINE RANDOM PANEL(Performed 11/03/2017) Performed for Diabetes mellitus with stage 3 chronic kidney disease (HCC) * LIPID PROFILE W TCHOL/HDL(Performed 11/03/2017) Performed for Elevated cholesterol, Morbid obesity ([facility]) * HEMOGLOBIN A1C W EAG(Performed 11/03/2017) Performed for Diabetes mellitus with stage 3 chronic kidney disease ([facility]) * VITAMIN B12 FOLATE PANEL(Performed 11/03/2017) Performed for Diabetes mellitus with stage 3 chronic kidney disease ([facility]) * CBC W AUTO DIFFERENTIAL(Performed 11/03/2017) Performed for Obstructive sleep apnea syndrome, Malignant neoplasm of lateral wall of urinary bladder ([facility]), Chronic obstructive pulmonary disease, unspecified COPD type ([facility]) * T4 FREE(Performed 06/22/2017) 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 * VITAMIN B12 FOLATE PANEL(Performed 06/22/2017) Performed for Uncontrolled type 2 diabetes mellitus with hyperosmolarity without coma, without long-term current use of insulin ([facility]) * LIPID PROFILE W TCHOL/HDL(Performed 06/22/2017) Performed for Uncontrolled type 2 diabetes mellitus with hyperosmolarity without coma, without long-term current use of insulin ([facility]) * TSH(Performed 06/22/2017) 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 * HEMOGLOBIN A1C W EAG(Performed 06/22/2017) Performed for Uncontrolled type 2 diabetes mellitus with hyperosmolarity without coma, without long-term current use of insulin ([facility]) * COMPREHENSIVE METABOLIC PANEL(Performed 06/22/2017) Performed for Essential hypertension * MICROALB/CREAT RATIO URINE RANDOM PANEL(Performed 05/05/2017) Performed for Uncontrolled type 2 diabetes mellitus with hyperosmolarity without coma, without long-term current use of insulin ([facility]) * LIPID PROFILE W TCHOL/HDL(Performed 05/05/2017) Performed for Elevated cholesterol, Uncontrolled type 2 diabetes mellitus with hyperosmolarity without coma, without long-term current use of insulin ([facility]) * TSH(Performed 05/05/2017) 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 * HEMOGLOBIN A1C W EAG(Performed 05/05/2017) Performed for Uncontrolled type 2 diabetes mellitus with hyperosmolarity without coma, without long-term current use of insulin ([facility]) * COMPREHENSIVE METABOLIC PANEL(Performed 05/05/2017) Performed for Uncontrolled type 2 diabetes mellitus with hyperosmolarity without coma, without long-term current use of insulin ([facility]), Benign essential hypertension * DIABETES EYE EXAM(Performed 04/08/2017) * XR LUMBAR SPINE 2 OR 3VW(Performed 03/08/2017) Performed for Buttock pain * TSH(Performed 02/01/2017) Performed for Acquired hypothyroidism * HEMOGLOBIN A1C W EAG(Performed 02/01/2017) Performed for Uncontrolled type 2 diabetes mellitus without complication, without long-term currentuse of insulin * LIPID PROFILE W TCHOL/HDL(Performed 02/01/2017) Performed for Uncontrolled type 2 diabetes mellitus without complication, without long-term currentuse of insulin, Elevated cholesterol * COMPREHENSIVE METABOLIC PANEL(Performed 02/01/2017) Performed for Uncontrolled type 2 diabetes mellitus without complication, without long-term currentuse of insulin * MAMMO BILAT SCREENING(Performed 11/09/2016) Performed for Encounter for screening mammogram for breast cancer * VITAMIN B12 FOLATE PANEL(Performed 11/05/2016) Performed for Uncontrolled type 2 diabetes mellitus with hyperosmolarity without coma, without long-term current use of insulin ([facility]) * CBC W AUTO DIFFERENTIAL(Performed 11/05/2016) Performed for Uncontrolled type 2 diabetes mellitus with hyperosmolarity without coma, without long-term current use of insulin ([facility]) * MICROALB/CREAT RATIO URINE RANDOM PANEL(Performed 11/05/2016) Performed for Uncontrolled type 2 diabetes mellitus with hyperosmolarity without coma, without long-term current use of insulin ([facility]) * COMPREHENSIVE METABOLIC PANEL(Performed 11/05/2016) Performed for Uncontrolled type 2 diabetes mellitus with hyperosmolarity without coma, without long-term current use of insulin ([facility]), Essential hypertension * HEMOGLOBIN A1C W EAG(Performed 11/05/2016) Performed for Uncontrolled type 2 diabetes mellitus with hyperosmolarity without coma, without long-term current use of insulin ([facility]) * LIPID PROFILE W TCHOL/HDL(Performed 11/05/2016) Performed for Uncontrolled type 2 diabetes mellitus with hyperosmolarity without coma, without long-term current use of insulin ([facility]), Aortic atherosclerosis (HCC), Elevated cholesterol * T4 FREE(Performed 11/05/2016) 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 * T3 FREE(Performed 11/05/2016) 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 * TSH(Performed 11/05/2016) 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 * VITAMIN B12 FOLATE PANEL(Performed 08/31/2016) Performed for Type 2 diabetes mellitus with hyperglycemia, without long-term current use of insulin([facility]) * VITAMIN D 25-HYDROXY(Performed 08/31/2016) Performed for Vitamin D deficiency * MICROALB/CREAT RATIO URINE RANDOM PANEL(Performed 08/31/2016) Performed for Type 2 diabetes mellitus with hyperglycemia, without long-term current use of insulin([facility]) * COMPREHENSIVE METABOLIC PANEL(Performed 08/31/2016) Performed for Type 2 diabetes mellitus with hyperglycemia, without long-term current use of insulin([facility]) * CBC W AUTO DIFFERENTIAL(Performed 08/31/2016) Performed for Type 2 diabetes mellitus with hyperglycemia, without long-term current use of insulin([facility]) * T3 TOTAL(Performed 08/31/2016) Performed for Hyperthyroidism * T4 FREE(Performed 08/31/2016) Performed for Hyperthyroidism * TSH(Performed 08/31/2016) Performed for Hyperthyroidism * C-REACTIVE PROTEIN(Performed 06/09/2016) Performed for Uncontrolled type 2 diabetes mellitus with hyperosmolarity without coma, without long-term current use of insulin ([facility]) * COMPREHENSIVE METABOLIC PANEL(Performed 06/09/2016) Performed for Uncontrolled type 2 diabetes mellitus with hyperosmolarity without coma, without long-term current use of insulin ([facility]) * HEMOGLOBIN A1C W EAG(Performed 06/09/2016) Performed for Elevated cholesterol * LIPID PROFILE W TCHOL/HDL(Performed 06/09/2016) Performed for Uncontrolled type 2 diabetes mellitus with hyperosmolarity without coma, without long-term current use of insulin ([facility]) * TSH(Performed 06/09/2016) Performed for Hyperthyroidism * CT LUNG SCREEN LOW DOSE(Performed 03/03/2016) Performed for Pulmonary nodule, right * LIPID PROFILE W TCHOL/HDL(Performed 02/05/2016) Performed for Elevated cholesterol * HEMOGLOBIN A1C W EAG(Performed 02/05/2016) Performed for Uncontrolled type 2 diabetes mellitus with hyperosmolarity without coma, without long-term current use of insulin ([facility]) * COMPREHENSIVE METABOLIC PANEL(Performed 02/05/2016) Performed for Uncontrolled type 2 diabetes mellitus with hyperosmolarity without coma, without long-term current use of insulin ([facility]) * MICROALB/CREAT RATIO URINE RANDOM PANEL(Performed 10/01/2015) Performed for Uncontrolled type 2 diabetes mellitus with other specified complication, without long-term current use of insulin * VITAMIN B12 FOLATE PANEL(Performed 10/01/2015) Performed for Uncontrolled type 2 diabetes mellitus with other specified complication, without long-term current use of insulin * LIPID PROFILE W TCHOL/HDL(Performed 10/01/2015) Performed for Uncontrolled type 2 diabetes mellitus with other specified complication, without long-term current use of insulin, Elevated cholesterol * HEMOGLOBIN A1C W EAG(Performed 10/01/2015) Performed for Uncontrolled type 2 diabetes mellitus with other specified complication, without long-term current use of insulin * COMPREHENSIVE METABOLIC PANEL(Performed 10/01/2015) Performed for Uncontrolled type 2 diabetes mellitus with other specified complication, without long-term current use of insulin * PATHOLOGY/CYTOLOGY REPORT ORDER(Performed 07/31/2015) * TSH(Performed 06/24/2015) Performed for Hyperthyroidism, TOR (generalized anxiety disorder), Other fatigue * T4 FREE(Performed 06/24/2015) Performed for Hyperthyroidism, TOR (generalized anxiety disorder), Other fatigue * T3 FREE(Performed 06/24/2015) Performed for Hyperthyroidism, TOR (generalized anxiety disorder), Other fatigue * MICROALB/CREAT RATIO URINE RANDOM PANEL(Performed 06/24/2015) Performed for DM (diabetes mellitus) uncontrolled * HEMOGLOBIN A1C(Performed 06/24/2015) Performed for DM (diabetes mellitus) uncontrolled * COMPREHENSIVE METABOLIC PANEL(Performed 06/24/2015) Performed for DM (diabetes mellitus) uncontrolled, Essential hypertension with goal blood pressure less than 130/80, Elevated cholesterol * LIPID PROFILE W TCHOL/HDL(Performed 06/24/2015) Performed for DM (diabetes mellitus) uncontrolled, Essential hypertension with goal blood pressure less than 130/80, Aortic atherosclerosis (HCC), Elevated cholesterol * US RETROPERITONEAL LIMITED(Performed 05/31/2015) Performed for Other hydronephrosis * GLUCOSE - POINT OF CARE(Performed 03/13/2015) * URETEROSCOPY (FLEXIBLE OR RIGID)(Performed 03/13/2015) * GLUCOSE - POINT OF CARE(Performed 03/13/2015) * GLUCOSE - POINT OF CARE(Performed 02/28/2015) * CYTOLOGY NON-CORPORATE OPERATIONS COMPLIANCE MANAGER PANEL (STL)(Performed 02/28/2015) Performed for Preop examination * URETEROSCOPY (FLEXIBLE OR RIGID)(Performed 02/28/2015) * EKG 12-LEAD(Performed 02/28/2015) Performed for Preop examination * GLUCOSE - POINT OF CARE(Performed 02/28/2015) * MAMMO BILAT SCREENING(Performed 02/06/2015) Performed for Visit for screening mammogram * CT CHEST W CONTRAST(Performed 02/06/2015) Performed for Pulmonary nodule, left * HEPATITIS C ANTIBODY(Performed 01/30/2015) Performed for Need for hepatitis C screening test * MICROALB/CREAT RATIO URINE RANDOM PANEL(Performed 01/30/2015) Performed for DM (diabetes mellitus) uncontrolled * T3 FREE(Performed 01/30/2015) Performed for Hyperthyroidism * TSH(Performed 01/30/2015) Performed for Hyperthyroidism * LIPID PROFILE W TCHOL/HDL(Performed 01/30/2015) Performed for Elevated cholesterol * HEMOGLOBIN A1C W EAG(Performed 01/30/2015) Performed for DM (diabetes mellitus) uncontrolled * COMPREHENSIVE METABOLIC PANEL(Performed 01/30/2015) Performed for DM (diabetes mellitus) uncontrolled, Elevated cholesterol, Essential hypertension * MICROALB/CREAT RATIO URINE RANDOM PANEL(Performed 10/01/2014) Performed for DM (diabetes mellitus) uncontrolled * COMPREHENSIVE METABOLIC PANEL(Performed 10/01/2014) Performed for DM (diabetes mellitus) uncontrolled, Essential hypertension * HEMOGLOBIN A1C(Performed 10/01/2014) Performed for DM (diabetes mellitus) uncontrolled * SKIN TEST PPD - POINT OF CARE(Performed 10/01/2014) Performed for Need for tuberculosis vaccination * HM DIABETES EYE EXAM(Performed 07/30/2014) * HEMOGLOBIN A1C(Performed 06/06/2014) Performed for DM (diabetes mellitus) uncontrolled * BASIC METABOLIC PANEL (CALCIUM TOTAL)(Performed 06/06/2014) Performed for HTN (hypertension) * CBC W AUTO DIFFERENTIAL(Performed 05/22/2014) Performed for DM (diabetes mellitus) uncontrolled, Hyperthyroidism * COMPREHENSIVE METABOLIC PANEL(Performed 05/22/2014) Performed for DM (diabetes mellitus) uncontrolled, Hyperthyroidism * T4 FREE(Performed 05/22/2014) Performed for Hyperthyroidism * TSH(Performed 05/22/2014) Performed for Hyperthyroidism * GLUCOSE - POINT OF CARE(Performed 05/22/2014) Performed for DM (diabetes mellitus) uncontrolled * HEMOGLOBIN A1C(Performed 02/28/2014) Performed for DM (diabetes mellitus) uncontrolled * CBC W AUTO DIFFERENTIAL(Performed 02/28/2014) Performed for Tobacco abuse * LIPID PROFILE W LDL/HDL RATIO(Performed 02/28/2014) Performed for DM (diabetes mellitus) uncontrolled * COMPREHENSIVE METABOLIC PANEL(Performed 02/28/2014) Performed for DM (diabetes mellitus) uncontrolled, HTN (hypertension) * T3 TOTAL(Performed 02/28/2014) Performed for Thyrotoxicosis Without Mention Of Goiter Or Other Cause, Without Mention Of Thyrotoxic Crisis Or Storm * T4 FREE(Performed 02/28/2014) Performed for Thyrotoxicosis Without Mention Of Goiter Or Other Cause, Without Mention Of Thyrotoxic Crisis Or Storm * TSH(Performed 02/28/2014) Performed for Thyrotoxicosis Without Mention Of Goiter Or Other Cause, Without Mention Of Thyrotoxic Crisis Or Storm * BASIC METABOLIC PANEL (CALCIUM TOTAL)(Performed 10/10/2013) Performed for DM (diabetes mellitus) uncontrolled, HTN (hypertension) * MICROALB/CREAT RATIO URINE RANDOM PANEL(Performed 10/10/2013) Performed for DM (diabetes mellitus) uncontrolled * HEMOGLOBIN A1C(Performed 10/10/2013) Performed for DM (diabetes mellitus) uncontrolled * LIPID PROFILE W LDL/HDL RATIO(Performed 10/10/2013) Performed for DM (diabetes mellitus) uncontrolled, Elevated cholesterol * T3 TOTAL(Performed 08/30/2013) Performed for Hyperthyroidism * T4 FREE(Performed 08/30/2013) Performed for Hyperthyroidism * TSH(Performed 08/30/2013) Performed for Hyperthyroidism * DEXA BONE DENSITY RHEUMAT READ(Performed 07/04/2013) Performed for Osteoporosis * TSH(Performed 07/04/2013) Performed for Hyperthyroidism * MICROALB/CREAT RATIO URINE RANDOM PANEL(Performed 06/28/2013) Performed for DM (diabetes mellitus) uncontrolled * HEMOGLOBIN A1C(Performed 06/28/2013) Performed for DM (diabetes mellitus) uncontrolled * COMPREHENSIVE METABOLIC PANEL(Performed 06/28/2013) Performed for DM (diabetes mellitus) uncontrolled * LIPID PROFILE W LDL/HDL RATIO(Performed 06/28/2013) Performed for DM (diabetes mellitus) uncontrolled, Aortic atherosclerosis (HCC) * IMAGING/RADIOLOGY/XRAY RESULTS ORDER(Performed 06/20/2013) * T3 TOTAL+FREE PANEL(Performed 05/31/2013) Performed for Hyperthyroidism * T4 FREE(Performed 05/31/2013) Performed for Hyperthyroidism * TSH(Performed 05/31/2013) Performed for Hyperthyroidism * MICROALB/CREAT RATIO URINE RANDOM PANEL(Performed 02/28/2013) Performed for DM (diabetes mellitus) uncontrolled * HEMOGLOBIN A1C(Performed 02/28/2013) Performed for DM (diabetes mellitus) uncontrolled * CBC W AUTO DIFFERENTIAL(Performed 02/28/2013) Performed for Tobacco abuse * BASIC METABOLIC PANEL (CALCIUM TOTAL)(Performed 02/28/2013) Performed for DM (diabetes mellitus) uncontrolled, Elevated cholesterol, HTN (hypertension) * TSH(Performed 02/28/2013) Performed for Hyperthyroidism * LIPID PROFILE W LDL/HDL RATIO(Performed 02/28/2013) Performed for Elevated cholesterol * MAMMOGRAPHY ORDER(Performed 12/27/2012) * HEMOGLOBIN A1C(Performed 10/20/2012) Performed for DM (diabetes mellitus) uncontrolled * LIPID PROFILE W LDL/HDL RATIO(Performed 10/20/2012) Performed for DM (diabetes mellitus) uncontrolled, Elevated cholesterol * COMPREHENSIVE METABOLIC PANEL(Performed 10/20/2012) Performed for DM (diabetes mellitus) uncontrolled * T4 FREE(Performed 09/29/2012) Performed for Hyperthyroidism * T3 TOTAL(Performed 09/29/2012) Performed for Hyperthyroidism * TSH(Performed 09/29/2012) Performed for Hyperthyroidism * MICROALB/CREAT RATIO URINE RANDOM PANEL(Performed 07/11/2012) Performed for DM (diabetes mellitus) uncontrolled * T3 TOTAL(Performed 07/11/2012) Performed for Hyperthyroidism * T4 FREE(Performed 07/11/2012) Performed for Hyperthyroidism * TSH(Performed 07/11/2012) Performed for Hyperthyroidism * HEMOGLOBIN A1C(Performed 07/11/2012) Performed for DM (diabetes mellitus) uncontrolled * NM THYROID UPTAKE AND SCAN(Performed 06/09/2012) Performed for Hypothyroidism * THYROID AB PANEL (TPO AB+THYROGLOB AB)(Performed 06/07/2012) Performed for Hypothyroidism * T3 TOTAL(Performed 06/07/2012) Performed for Hypothyroidism * T4 FREE(Performed 06/07/2012) Performed for Hypothyroidism * TSH(Performed 06/07/2012) Performed for Hypothyroidism * TSH(Performed 04/08/2012) Performed for Hypothyroidism * LAB RESULTS ORDER(Performed 04/08/2012) * MICROALB/CREAT RATIO URINE RANDOM PANEL(Performed 03/17/2012) Performed for DM (diabetes mellitus) uncontrolled * HEMOGLOBIN A1C(Performed 03/17/2012) Performed for DM (diabetes mellitus) uncontrolled * LIPID PROFILE W LDL/HDL RATIO(Performed 03/17/2012) Performed for DM (diabetes mellitus) uncontrolled, Elevated cholesterol, Aortic atherosclerosis (HCC) * GENERAL HEALTH PANEL(Performed 03/17/2012) Performed for Hyperthyroidism, HTN (hypertension) * MAMMOGRAPHY ORDER(Performed 12/25/2011) * TSH(Performed 12/02/2011) Performed for Hypothyroidism * MICROALB/CREAT RATIO URINE RANDOM PANEL(Performed 11/04/2011) Performed for DM (diabetes mellitus), type 2, uncontrolled * HEMOGLOBIN A1C(Performed 11/04/2011) Performed for DM (diabetes mellitus), type 2, uncontrolled * BASIC METABOLIC PANEL (CALCIUM TOTAL)(Performed 11/04/2011) Performed for HTN (hypertension), DM (diabetes mellitus), type 2, uncontrolled * TSH(Performed 11/04/2011) Performed for Hyperthyroidism * IMAGING/RADIOLOGY/XRAY RESULTS ORDER(Performed 08/06/2011) * TSH(Performed 07/30/2011) Performed for Abnormal weight loss * CBC W AUTO DIFFERENTIAL(Performed 07/30/2011) Performed for Abnormal weight loss * MICROALB/CREAT RATIO URINE RANDOM PANEL(Performed 07/30/2011) Performed for DM (diabetes mellitus), type 2, uncontrolled * HEMOGLOBIN A1C(Performed 07/30/2011) Performed for DM (diabetes mellitus), type 2, uncontrolled * COMPREHENSIVE METABOLIC PANEL(Performed 07/30/2011) Performed for DM (diabetes mellitus), type 2, uncontrolled * LIPID PROFILE W LDL/HDL RATIO(Performed 07/30/2011) Performed for Elevated cholesterol * URINALYSIS AUTO - POINT OF CARE(Performed 03/26/2011) Performed for Bladder cancer (HCC) * HEMOGLOBIN A1C(Performed 03/26/2011) Performed for DM (diabetes mellitus), type 2, uncontrolled * LIPID PROFILE W LDL/HDL RATIO(Performed 03/26/2011) Performed for Elevated cholesterol, Intra-aortic calcification (HCC) * COMPREHENSIVE METABOLIC PANEL(Performed 03/26/2011) Performed for Elevated cholesterol, DM (diabetes mellitus), type 2, uncontrolled * US CAROTID COMPLETE DOPPLER(Performed 12/24/2010) Performed for Carotid stenosis, left, Elevated cholesterol, HTN (hypertension), DM (diabetes mellitus), type 2, uncontrolled * MICROALB/CREAT RATIO URINE RANDOM PANEL(Performed 12/23/2010) Performed for Elevated cholesterol, HTN (hypertension), DM (diabetes mellitus), type 2, uncontrolled, Carotid stenosis, left * LIPID PROFILE W LDL/HDL RATIO(Performed 12/23/2010) Performed for Elevated cholesterol, HTN (hypertension), DM (diabetes mellitus), type 2, uncontrolled, Carotid stenosis, left * COMPREHENSIVE METABOLIC PANEL(Performed 12/23/2010) Performed for Elevated cholesterol, HTN (hypertension), DM (diabetes mellitus), type 2, uncontrolled, Carotid stenosis, left * HEMOGLOBIN A1C(Performed 12/23/2010) Performed for Elevated cholesterol, HTN (hypertension), DM (diabetes mellitus), type 2, uncontrolled, Carotid stenosis, left * COMPREHENSIVE METABOLIC PANEL(Performed 09/23/2010) Performed for Elevated cholesterol * MICROALB/CREAT RATIO URINE RANDOM PANEL(Performed 09/23/2010) Performed for DM (diabetes mellitus), type 2, uncontrolled * LIPID PROFILE W LDL/HDL RATIO(Performed 09/23/2010) Performed for Elevated cholesterol * HEMOGLOBIN A1C(Performed 09/23/2010) Performed for DM (diabetes mellitus), type 2, uncontrolled * HEMOGLOBIN A1C(Performed 05/28/2010) Performed for DM (diabetes mellitus), type 2, uncontrolled * COMPREHENSIVE METABOLIC PANEL(Performed 05/28/2010) Performed for DM (diabetes mellitus), type 2, uncontrolled * LIPID PROFILE W LDL/HDL RATIO(Performed 05/28/2010) Performed for DM (diabetes mellitus), type 2, uncontrolled * MAMMO BILAT SCREENING(Performed 05/26/2010) Performed for Other screening mammogram * LIPID PROFILE W LDL/HDL RATIO(Performed 02/27/2010) Performed for DM w/o complication type II, uncontrolled * COMPREHENSIVE METABOLIC PANEL(Performed 02/27/2010) Performed for DM w/o complication type II, uncontrolled, HTN (hypertension) * HEMOGLOBIN A1C(Performed 02/27/2010) Performed for DM w/o complication type II, uncontrolled * LIPID PROFILE W LDL/HDL RATIO(Performed 11/27/2009) * COMPREHENSIVE METABOLIC PANEL(Performed 11/27/2009) * MICROALB/CREAT RATIO URINE RANDOM PANEL(Performed 11/27/2009) Performed for DM w/o complication type II (HCC) * HEMOGLOBIN A1C(Performed 11/27/2009) Performed for DM w/o complication type II (HCC) * HEMOGLOBIN A1C(Performed 08/22/2009) Performed for DM w/o Complication Type II (HCC) * COMPREHENSIVE METABOLIC PANEL(Performed 08/22/2009) Performed for Htn (Hypertension), Elevated Cholesterol, DM w/o Complication Type II (HCC) * LIPID PROFILE W LDL/HDL RATIO(Performed 08/22/2009) Performed for Elevated Cholesterol * URINALYSIS AUTO - POINT OF CARE(Performed 07/17/2009) Performed for Uti (Lower Urinary Tract Infection) * CULTURE URINE(Performed 07/17/2009) Performed for Uti (Lower Urinary Tract Infection) * MAMMO BILAT SCREENING(Performed 05/20/2009) Performed for Other Screening Mammogram * CT CHEST WO CONTRAST(Performed 05/20/2009) Performed for Sternoclavicular Joint Disorder * IMAGING/RADIOLOGY/XRAY RESULTS ORDER(Performed 05/20/2009) * LIPID PROFILE W LDL/HDL RATIO(Performed 05/14/2009) * COMPREHENSIVE METABOLIC PANEL(Performed 05/14/2009) * MICROALB/CREAT RATIO URINE RANDOM PANEL(Performed 05/14/2009) Performed for DM w/o Complication Type II (HCC) * HEMOGLOBIN A1C(Performed 05/14/2009) Performed for DM w/o Complication Type II (HCC) * CULTURE ANAEROBE+AEROBE(Performed 03/11/2009) Performed for Cellulitis and Abscess of Unspecified Site * URINALYSIS AUTO - POINT OF CARE(Performed 03/11/2009) Performed for Hematuria * HEMOGLOBIN A1C W MBG EST(Performed 01/15/2009) * LIPID PROFILE(Performed 01/15/2009) * COMPREHENSIVE METABOLIC PANEL(Performed 01/15/2009) Performed for HTN (Hypertension), DM w/o Complication Type II (HCC) * CBC W AUTO DIFFERENTIAL(Performed 01/15/2009) Performed for LBP (Low Back Pain) * HEMOGLOBIN A1C W MBG EST(Performed 10/10/2008) * LIPID PROFILE(Performed 10/10/2008) * MICROALB/CREAT RATIO URINE RANDOM PANEL(Performed 10/10/2008) Performed for Cough * COMPREHENSIVE METABOLIC PANEL(Performed 10/10/2008) Performed for Htn * CBC W AUTO DIFFERENTIAL(Performed 10/10/2008) Performed for Cough * EKG 12-LEAD(Performed 10/10/2008) Performed for Htn * COMPREHENSIVE METABOLIC PANEL(Performed 08/10/2008) * URIC ACID BLOOD(Performed 08/10/2008) * HEMOGLOBIN A1C W MBG EST(Performed 06/28/2008) * LIPID PROFILE(Performed 06/28/2008) * CBC W AUTO DIFFERENTIAL(Performed 06/28/2008) Performed for LBP (Low Back Pain), Htn * COMPREHENSIVE METABOLIC PANEL(Performed 06/28/2008) Performed for Htn * HEMOGLOBIN A1C W MBG EST(Performed 03/21/2008) * CBC W AUTO DIFFERENTIAL(Performed 03/21/2008) * COMPREHENSIVE METABOLIC PANEL(Performed 03/21/2008) * MICROALB/CREAT RATIO URINE RANDOM PANEL(Performed 03/21/2008) * LIPID PROFILE(Performed 03/21/2008) * MRIO L SPINE WWO CONT(Performed 02/09/2008) Performed for Spinal Stenosis-Lumbar * HEPATIC FUNCTION PANEL(Performed 02/06/2008) * LIPID PROFILE(Performed 02/06/2008) * GLUCOSE - POINT OF CARE(Performed 01/21/2008) * GLUCOSE - POINT OF CARE(Performed 01/21/2008) * GLUCOSE - POINT OF CARE(Performed 01/20/2008) * GLUCOSE - POINT OF CARE(Performed 01/20/2008) * GLUCOSE - POINT OF CARE(Performed 01/20/2008) * GLUCOSE - POINT OF CARE(Performed 01/20/2008) * XR LUMBAR SPINE IN OR 1VW(Performed 01/20/2008) Performed for Unspecified Backache * TYPE + SCREEN PANEL(Performed 01/16/2008) Performed for Unspecified Pre-Operative Examination * BASIC METABOLIC PANEL (CALCIUM TOTAL)(Performed 01/16/2008) Performed for Unspecified Pre-Operative Examination Results * Mammo Bilat Screening W Antonio (11/25/2023 12:46 PM CDT) Only the most recent of3 resultswithin the time period is included. Anatomical Region Laterality Modality Breast Bilateral Mammography 11/25/2023 12:5 5 PM CDT Impressions 11/25/2023 12:56 PM CDT : No mammographic evidence of malignancy in either breast. ASSESSMENT: BIRADS Category 1: Negative mammogram. RECOMMENDATION: Bilateral screening mammogram in one year. Thank you for allowing us to participate in the care of your patient. [facility] Breast [facility] utilizes [employer] as a reminder system to notify patients of their next recommended mammogram. > Interpreting Provider: Kellee Lozano MD on 11/25/2023 12:56 PM Narrative 11/25/2023 12:56 PM CDT EXAMINATION: Digital screening mammogram. Low-dose full-field digital breast tomosynthesis examination was performed with synthetic 2D images. Computer assisted detection was utilized. DATE: 11/25/2023 12:46 PM PRIOR: 04/03/2022 and prior mammograms dating back to 2019. BREAST PARENCHYMAL DENSITY: The breasts are almost entirely fatty. FINDINGS: No suspicious masses, areas of architectural distortion or microcalcifications are evident on synthetic 2D mammogram or tomosynthesis images. There has been no significant interval change since the prior examination. Isaias Pino MD MAMMO ORDERABLES * CT Lung Screen Low Dose (11/25/2023 12:30 PM CDT) Only the most recent of7 resultswithin the time period is included. Anatomical Region Laterality Modality Chest Computed Tomogra [...] search: Lung-RADS Lung Cancer Screening 3) Contact [facility] thoracic nurse coordinator ([phone]) Edited by Lazara Frye on 11/25/2023 3:03 [...] search: Lung-RADS Lung Cancer Screening 3) Contact [facility] thoracic nurse coordinator ([phone]) Edited by Lazara Frye on 11/25/2023 3:03 PM > Interpreting Provider: Anni Ramírez MD on 11/25/2023 3:09 [address] Pino MD [address] ORDERABLES * (ABNORMAL) MICROALB/CREAT RATIO URINE RANDOM PANEL (11/25/2023 11:20 AM CDT) Only the most recent of34 resultswithin the time period is included. Creatinine Urine 18.08 mg/dL [facility] ACCOUNT BILL Microalbumin Urine 2.2 mg/dL [facility] ACCOUNT BILL Microalbumin/Crea tinine Ratio 121(H) <30 mg/g [facility] ACCOUNT BILL Urine URINE SPECIMEN OBTAINED BY CLEAN CATCH PROCEDURE / Unknown 11/25/2023 11:20 AM CDT 11/25/2023 Narrative [facility] ACCOUNT BILL - 11/25/2023 6:08 PM CDT Performed at: [address] [place] [address] [address] [place], [place] [id number] Assistant Womens Volleyball Coach: Amy Rodriguez formerly [facility], Phone: [phone] Isaias Pino MD LAB - URINE CHEMISTR Y ORDERABLES [facility] ACCOUNT BILL [address] [place] [address] * T3 TOTAL (11/25/2023 11:20 AM CDT) Only the most recent of11 resultswithin the time period is included. T3 Total 0.71 0.40 - 1.90 ng/mL [facility] ACCOUNT BILL Blood BLOOD SPECIMEN / Unknown 11/25/2023 11:20 AM CDT 11/25/2023 Narrative [facility] ACCOUNT BILL - 11/25/2023 9:07 PM CDT Performed at: [address] [place] [id number] Assistant Womens Volleyball Coach: Jigar Chávez MD, Phone: [phone] Isaias Pino MD LAB - CHEMISTRY CRISTOBAL NASH [facility] ACCOUNT BILL [address] [place] [address] * (ABNORMAL) HEMOGLOBIN A1C W EAG (11/25/2023 11:19 AM CDT) Only the most recent of22 resultswithin the time period is included. Hemoglobin A1c 7.4(H) <5.7 % [facility] [...] for the measurement of HbA1c is a [facility] Glycohemoglobin Standardization Program (NGSP) certi fied method. Blood BLOOD SPECIMEN / Unknown 11/25/2023 11:19 AM CDT 11/25/2023 Narrative [facility] ACCOUNT BILL - 11/25/2023 6:08 PM CDT Performed at: [address] [place] [address] Karen Pringle, KALYANI De La Cruz [phone] Assistant Womens Volleyball Coach: Amy Rodriguez formerly [facility], Phone: [phone] Isaias Pino MD LAB - CHEMISTRY CRISTOBAL NASH Performing Organization Address City/[facility]/ZIP Co de Phone Number [facility] ACCOUNT BILL [address] [place] [address] * LIPID PROFILE W TCHOL/HDL (11/25/2023 11:19 AM CDT) Only the most recent of23 resultswithin the time period is included. Cholesterol 174 <200 mg/dL [facility] ACCOUNT BILL Triglycerides 130 <150 mg/dL [facility] ACCOUNT BILL HDL Cholesterol 43 >40 mg/dL [facility] ACCOUNT BILL VLDL Calculated 26 <=30 mg/dL [facility] ACCOUNT BILL LDL Calculated 105 <130 mg/dL [facility] ACCOUNT BILL Comment:LDL/HDL RATIO BLOOD (SSM) 2.4 <5.0 Cholesterol/HDL Ratio 4.0 <4.5 [facility] ACCOUNT BILL Blood BLOOD SPECIMEN / Unknown 11/25/2023 11:19 AM CDT 11/25/2023 Narrative [facility] ACCOUNT BILL - 11/25/2023 6:08 PM CDT Performed at: [address] [place] [address] [address] , [place], [place] [id number] Assistant Womens Volleyball Coach: Amy Rodriguez formerly [facility], Phone: [phone] Isaias Pion MD LAB - CHEMISTRY CRISTOBAL NASH Performing Organization Address [facility] Co de Phone Number [facility] ACCOUNT BILL [address] [place] [address] * (ABNORMAL) CBC WITH DIFFERENTIAL (11/25/2023 11:19 AM CDT) Only the most recent of27 resultswithin the time period is included. WBC 10.0 4.0 - 10.7 x10E9/L [facility] ACCOUNT BILL RBC 5.12 3.90 - 5.20 x10E12/L [facility] ACCOUNT BILL Hemoglobin 13.2 11.9 - 15.8 g/dL [facility] ACCOUNT BILL Hematocrit 43.4 34.8 - 46.1 % [facility] ACCOUNT BILL MCV 84.8 80.0 - 98.0 fL [facility] ACCOUNT BILL MCH 25.8(L) 26.7 - 33.6 pg [facility] ACCOUNT BILL MCHC 30.4(L) 31.7 - 36.3 g/dL [facility] ACCOUNT BILL RDW 18.1(H) 11.3 - 14.8 % [facility] ACCOUNT BILL Platelet Count 279 150 - 420 x10E9/L [facility] ACCOUNT BILL Comment:MPV (CS) 11.7 fL 7.8 -11.4 H Granulocytes % 57.2 41.0 - 74.0 % [facility] ACCOUNT BILL Lymphocytes % 28.4 17.0 - 47.0 % [facility] ACCOUNT BILL Monocytes % 9.6 3.0 - 11.0 % [facility] ACCOUNT BILL Eosinophils % 3.3 0.0 - 7.0 % [facility] ACCOUNT BILL Basophils % 1.0 0.0 - 1.6 % [facility] ACCOUNT BILL Granulocytes Absolute 5.73 1.60 - 7.50 x10E9/L [facility] ACCOUNT BILL Lymphocytes Absolute 2.84 1.00 - 4.40 x10E9/L [facility] ACCOUNT BILL Monocytes Absolute 0.96 0.15 - 1.00 x10E9/L [facility] ACCOUNT BILL Eosinophils Absolute 0.33 0.00 - 0.60 x10E9/L [facility] ACCOUNT BILL Basophils Absolute 0.10 0.00 - 0.13 x10E9/L [facility] ACCOUNT BILL Immature Granulocytes 0.5 0.0 - 1.0 % [facility] ACCOUNT BILL Blood BLOOD SPECIMEN / Unknown 11/25/2023 11:19 AM CDT 11/25/2023 Narrative [facility] ACCOUNT BILL - 11/25/2023 5:09 PM CDT Performed at: [address] [place] [id number] [address] , [place], [place] [phone] Assistant Womens Volleyball Coach: Amy Rodriguez formerly [facility], Phone: [phone] Isaias Pino MD LAB - HEMATOLOGY ORD ERABLES [facility] ACCOUNT BILL [address] [place] [address] * (ABNORMAL) COMPREHENSIVE METABOLIC PANEL (11/25/2023 11:19 AM CDT) Only the most recent of46 resultswithin the time period is included. Glucose 203(H) 70 - 99 mg/dL [facility] [...] - 11/25/2023 6:08 PM CDT Performed at: [address] [place] [address] Karen [place], [place] [id number] Assistant Womens Volleyball Coach: Amy Rodriguez formerly [facility], Phone: [phone] Isaias Pino MD LAB - CHEMISTRY CRISTOBAL NASH [facility] ACCOUNT BILL [address] [place] [address] * (ABNORMAL) TSH (11/25/2023 11:19 AM CDT) Only the most recent of37 resultswithin the time period is included. TSH 7.5673(H) 0.35 - 4.94 uIU/mL [facility] ACCOUNT BILL Blood BLOOD SPECIMEN / Unknown 11/25/2023 11:19 AM CDT 11/25/2023 Narrative [facility] ACCOUNT BILL - 11/25/2023 6:08 PM CDT Performed at: [address] [place] [address] [place] [id number] Assistant Womens Volleyball Coach: Amy Rodriguez formerly [facility], Phone: [phone] Isaias Pino MD LAB - CHEMISTRY CRISTOBAL NASH Performing Organization Address City/[facility] Co de Phone Number [facility] ACCOUNT BILL [address] [place] [address] * T4 FREE (11/25/2023 11:19 AM CDT) Only the most recent of21 resultswithin the time period is included. T4 Free 1.05 0.70 - 1.50 ng/dL [facility] ACCOUNT BILL Blood BLOOD SPECIMEN / Unknown 11/25/2023 11:19 AM CDT 11/25/2023 Narrative [facility] ACCOUNT BILL - 11/25/2023 6:08 PM CDT Performed at: [address] [place] [address] [place] [id number] Assistant Womens Volleyball Coach: Amy Rodriguez formerly [facility], Phone: [phone] Isaias Pino MD LAB - CHEMISTRY CRISTOBAL NASH Performing Organization Address [facility] Co de Phone Number [facility] ACCOUNT BILL [address] [place] [address] * (ABNORMAL) VITAMIN D 25-HYDROXY (07/06/2023 12:10 PM CDT) Only the most recent of3 resultswithin the time period is included. Vitamin D, 25 Hydroxy 12.2(L) 30 - 80 ng/mL [facility] ACCOUNT BILL Comment: Vitamin D Status: Deficiency <20 ng/mL Insufficiency 20-30 ng/mL Sufficiency 30-100 ng/mL Toxicity >100 ng/mL Blood BLOOD SPECIMEN / Unknown 07/06/2023 12:10 PM CDT 07/06/2023 Narrative Resulting Agency Comment Lab Testing performed at: [address] Dorothy [place] [phone] Isaias Pino MD LAB - CHEMISTRY CRISTOBAL NASH Performing Organization Address City/[facility]/ZIP Co de Phone Number [facility] ACCOUNT BILL [address] [place] [address] * VITAMIN B12 FOLATE PANEL (07/06/2023 12:10 PM CDT) Only the most recent of18 resultswithin the time period is included. Vitamin B12 371 213 - 816 pg/mL [facility] ACCOUNT BILL Folate 7.6 7.0 - 31.4 ng/mL [facility] ACCOUNT BILL Blood BLOOD SPECIMEN / Unknown 07/06/2023 12:10 PM CDT 07/06/2023 Narrative Resulting Agency Comment Lab Testing performed at: [address] Dorothy [place] [id number] Isaias Pino MD LAB - CHEMISTRY CRISTOBAL NASH Performing Organization Address City/[facility] Co de Phone Number [facility] ACCOUNT BILL [address] [place] [address] * DRUG SCREEN URINE PANEL 9 ([facility]) (07/06/2023 12:09 PM CDT) Amphetamines Screen Urine Negative Cutoff=1 000 ng/mL [facility] ACCOUNT BILL Comment:Amphetamine test inc ludes Amphetamine and Methamphetamine. Barbiturates Screen Urine Negative Cutoff=3 00 ng/mL [facility] ACCOUNT BILL Benzodiazepines Screen Urine Negative Cutoff=3 00 ng/mL [facility] ACCOUNT BILL Cannabinoids Screen Urine Negative Cutoff=5 0 ng/mL [facility] ACCOUNT BILL Cocaine Screen Urine Negative Cutoff=3 00 ng/mL [facility] ACCOUNT BILL Opiate Screen Urine See Final Results Cutoff=3 00 ng/mL [facility] ACCOUNT BILL Comment:Opiate test includes Codeine and Morphine only. Phencyclidine Screen Urine Negative Cutoff=2 5 ng/mL [facility] ACCOUNT BILL Methadone Screen Urine Negative Cutoff=3 00 ng/mL [facility] ACCOUNT BILL Propoxyphene Screen Urine Negative Cutoff=3 00 ng/mL [facility] ACCOUNT BILL Urine URINE / Unknown 07/06/2023 1 2:09 PM CDT 07/06/2023 Narrative Resulting Agency Comment Lab Testing performed at: [facility] [address] [facility] [phone] Isaias Pino MD LAB - URINE CHEMISTR Y ORDERABLES [facility] ACCOUNT BILL [address] [place] [address] * OPIATES URINE CONFIRMATION (07/06/2023 12:09 PM CDT) Opiates Negative Sofacx=229 [facility] ACCOUNT BILL Comment:Opiate test includes Codeine and Morphine only. 07/06/2023 12:0 9 PM CDT 07/06/2023 Narrative Resulting Agency Comment Lab Testing performed at: [facility] [address] [employer] [facility] [phone] Isaias Pino MD LAB - URINE CHEMISTR Y ORDERABLES Performing Organization Address City/[facility] Co de Phone Number [facility] ACCOUNT BILL [address] [place] [address] * MRI BRAIN WWO CONTRAST (06/14/2023 11:28 AM CDT) Only the most recent of2 resultswithin the time period is included. Anatomical Region Laterality Modality Head Magnetic Resonan ce 06/14/2023 1:48 PM CDT Impressions 06/14/2023 1:55 PM CDT IMPRESSION: 1. 1.3 x 1.3 x 1.2 cm enhancing left frontal extra-axial mass in keeping with history of a meningioma. 2. Age-related changes. No acute intracranial abnormality is identified. No recent infarction. 3. Prior imaging is not available for direct comparison. If prior studies are made available, an addendum report can be provided. > Interpreting Provider: Rasheed Lowe DO on 06/14/2023 1:55 PM Narrative 06/14/2023 1:55 PM CDT PROCEDURE: MRI BRAIN WWO CONTRAST DATE/TIME OF EXAM: 06/14/2023 11:28 AM CLINICAL INFORMATION: Increasing falls. History of meningioma. COMPARISON: None. TECHNIQUE: MRI of the brain was performed without and with contrast. CONTRAST: GADOTERATE MEGLUMINE 0.5 MMOL/ML IV SSM SO:20 mL FINDINGS: Volume loss is commensurate with age. There is no mass, mass effect or midline shift. No hemorrhage or blood degradation products are present on the gradient echo sequence. Mild T2 signal present within the supratentorial white matter is nonspecific but most likely indicates the presence of underlying chronic ischemic microangiopathy. There is no cytotoxic edema to indicate an acute infarction. Flow voids at the skull base are present. Enhancing dural based extra-axial mass left frontal convexity measures 1.3 x 1.3 x 1.2 cm. It would be consistent with a small meningioma. There is negligible mass effect and no edema within the adjacent brain parenchyma. Partially empty sella configuration is an anatomic variant. There is no cerebellar tonsillar ectopia. Cataract surgery. Sinuses and mastoid air cells are clear. Procedure Note Rasheed Lowe, - 06/14/2023 PROCEDURE: MRI BRAIN WWO CONTRAST DATE/TIME OF EXAM: 06/14/2023 11:28 AM CLINICAL INFORMATION: Increasing falls. History of meningioma. COMPARISON: None. TECHNIQUE: MRI of the brain was performed without and with contrast. CONTRAST: GADOTERATE MEGLUMINE 0.5 MMOL/ML IV SSM SO:20 mL FINDINGS: Volume loss is commensurate with age. There is no mass, mass effect or midline shift. No hemorrhage or blood degradation products are presenton the gradient echo sequence. Mild T2 signal present within the supratentorial white matter is nonspecific but most likely indicates the presence of underlying chronic ischemic microangiopathy. There is no cytotoxic edema to indicate an acute infarction. Flow voids at the skull base are present. Enhancing dural based extra-axial mass left frontal convexity measures1.3 x 1.3 x 1.2 cm. It would be consistent with a small meningioma. There is negligible mass effect and no edema within the adjacent brainparenchyma. Partially empty sella configuration is an anatomic variant. There is no cerebellar tonsillar ectopia. Cataract surgery. Sinuses and mastoid air cells are clear. IMPRESSION: 1. 1.3 x 1.3 x 1.2 cm enhancing left frontal extra-axial mass in keeping with history of a meningioma. 2. Age-related changes. No acute intracranial abnormality is identified.No recent infarction. 3. Prior imaging is not available for direct comparison. If priorstudies are made available, an addendum report can be provided. > Interpreting Provider: Rasheed Lowe DO on 06/14/2023 1:55 PM Ta Olivo II, MD MR ORDERABL ES * (ABNORMAL) CREATININE - POCT INTERFACED (06/14/2023 10:43 AM CDT) Only the most recent of2 resultswithin the time period is included. [facility] Creatinine POCT 0.67(L) 0.70 - 1.20 mg/dL 06/14/2023 11:29 AM CDT [facility] eGFR >90 >=90 mL/min/1.7 3 m2 06/14/2023 11:29 AM CDT [facility] Blood BLOOD SPECIMEN / Unknown 06/14/2023 10:43 AM CDT 06/14/2023 11:29 AM CDT Ta Olivo II, MD LAB - POINT OF CARE ORDERABLES [facility] [address] [place] [address] * AMB REFERRAL TO NEUROLOGY (03/17/2023 2:00 PM CONFIGURATION MANAGEMENT MANAGER) Isaias Pino MD OUTPATIENT REFERRALS * LAB RESULTS ORDER (01/29/2023) Only the most recent of2 resultswithin the time period is included. 01/29/2023 Narrative 01/29/2023 Ordered by an unspecified provider. Scanned Document LAB - THERAPEUTIC DR CHAUDHRY MONITORING ORDERABLES * MRI BRAIN W CONTRAST (01/29/2023) Anatomical Region Laterality Modality Head Magnetic Resonan ce 01/29/2023 Sandi Blancas PA-C MR ORDERABLES * CARDIAC STRESS TEST ORDER (09/24/2022 8:04 PM CDT) Narrative 09/24/2022 8:04 PM CDT Ordered by an unspecified provider. Scanned Document CARDIAC SERVICES ORD ERABLES * (ABNORMAL) IRON + TRANSFERRIN PANEL (09/24/2022 1:52 PM CDT) Iron 41(L) 50 - 170 ug/dL [facility] ACCOUNT BILL Transferrin 326 173 - 360 mg/dL [facility] ACCOUNT BILL Comment: TIBC CALCULATED BLOOD ([facility]) 408 ug/dL 240-450 SATURATION % BLOOD ([facility]) 10 % 20-50 L Blood BLOOD SPECIMEN / Unknown 09/24/2022 1:52 PM CDT 09/24/2022 Narrative Resulting Agency Comment Lab Testing performed at: Count includes the [facility] [address] [place] [phone] Isaias Pino MD LAB - CHEMISTRY CRISTOBAL NASH [facility] ACCOUNT BILL [address] [place] [address] * CT CHEST WO CONTRAST (08/10/2022 10:19 AM CDT) Only the most recent of2 resultswithin the time period is included. Anatomical Region Laterality Modality Chest Computed Tomogra phy 08/10/2022 1:49 PM CDT Impressions 08/10/2022 1:52 PM CDT IMPRESSION: Lung rads category 2, benign findings follow-up in 12 months is recommended. > Interpreting Provider: Tee Olivera DO on 08/10/2022 1:52 PM Narrative 08/10/2022 1:[address] Chest Without Contrast INDICATION: Follow-up lung nodule, emphysema COMPARISON: Chest CT January 22, 2022 TECHNIQUE: Axial images of the chest without contrast were obtained and reconstructions performed. Radiation dose reduction technique was utilized. FINDINGS: The thoracic inlet structures appear normal. Atherosclerosis is noted in the aortic arch and great vessels and coronary arteries. The heart chambers appear normal. The lungs are grossly clear without consolidation, effusion or pneumothorax. There are several calcified granulomata noted throughout both lungs. The airways are patent. No suspicious pulmonary nodules are noted. The extrathoracic soft tissues are normal appearing. The upper abdominal organs are unremarkable. Degenerative changes are noted in the spine. Procedure Note Tee Olivera DO - 08/10/2022 CT Chest Without Contrast INDICATION: Follow-up lung nodule, emphysema COMPARISON: Chest CT January 22, 2022 TECHNIQUE: Axial images of the chest without contrast were obtained and reconstructions performed. Radiation dose reduction technique wasutilized. FINDINGS: The thoracic inlet structures appear normal. Atherosclerosis is noted in the aortic arch and great vessels and coronary arteries. The heartchambers appear normal. The lungs are grossly clear without consolidation,effusion or pneumothorax. There are several calcified granulomata notedthroughout both lungs. The airways are patent. No suspicious pulmonary nodules are noted. The extrathoracic soft tissues are normal appearing. The upper abdominal organs are unremarkable. Degenerative changes are noted in the spine. IMPRESSION: Lung rads category 2, benign findings follow-up in 12 monthsis recommended. > Interpreting Provider: Tee Olivera DO on 08/10/2022 1:52 PM Sandi Blancas PA-C CT ORDERABLES * (ABNORMAL) BASIC METABOLIC PANEL (BMP) (08/10/2022 9:23 AM CDT) Only the most recent of13 resultswithin the time period is included. Glucose 87 70 - 105 mg/dL [facility] ACCOUNT BILL BUN 10 9.8 - 20.1 mg/dL [facility] ACCOUNT BILL Creatinine 0.97 0.57 - 1.11 mg/dL [facility] ACCOUNT BILL eGFR by CKD-EPI 61(L) >=90 mL/min/1.7 3 m2 [facility] ACCOUNT BILL Sodium 142 136 - 145 mmol/L [facility] ACCOUNT BILL Potassium 4.0 3.5 - 5.1 mmol/L [facility] ACCOUNT BILL Chloride 107 98 - 107 mmol/L [facility] ACCOUNT BILL CO2 25 23 - 31 mmol/L [facility] ACCOUNT BILL Calcium 9.6 8.4 - 10.4 mg/dL [facility] ACCOUNT BILL Blood BLOOD SPECIMEN / Unknown 08/10/2022 9:23 AM CDT 08/10/2022 Narrative Resulting Agency Comment Lab Testing performed at: [address] [place] [phone] Sandi Blancas PA-C LAB - CHEMISTRY O RDERABLES [facility] [place]OUNT [place] [address] [place] [address] * IMAGING RADIOLOGY XRAY RESULTS ORDER (06/16/2022) Only the most recent of4 resultswithin the time period is included. Anatomical Region Laterality Modality Other 06/16/2022 Narrative 06/16/2022 Ordered by an unspecified provider. Scanned Document IMAGING * US RETROPERITONEAL LIMITED (04/13/2022 12:54 PM CONFIGURATION MANAGEMENT MANAGER) Only the most recent of2 resultswithin the time period is included. Anatomical Region Laterality Modality Abdomen Ultrasound 04/13/2022 3:22 PM CONFIGURATION MANAGEMENT MANAGER Impressions 04/13/2022 3:30 PM CONFIGURATION MANAGEMENT MANAGER IMPRESSION: Bilateral renal cysts. No calculus, hydronephrosis or mass. Allowing for the history of renal malignancy provided, dedicated renal CT or MR imaging including enhancement would provide more comprehensive evaluation. > Interpreting Provider: Liza Gerardo MD on 04/13/2022 3:30 PM Narrative 04/13/2022 3:30 PM CONFIGURATION MANAGEMENT MANAGER PROCEDURE: US RETROPERITONEAL LIMITED, DATE/TIME OF EXAM: 04/13/2022 12:54 PM, LOCATION [facility] INDICATION: N28.89: Other specified disorders of kidney and ureter ADDITIONAL CLINICAL INFORMATION: Ordering Provider Reason For Exam: kidney masses. hx of renal cancer Technologist Note: Additional: COMPARISON: CT of the abdomen and pelvis 04/03/2022.. TECHNIQUE: Ultrasound of the kidneys was performed utilizing standard protocol. FINDINGS: The right kidney measures 11.1 x 3.8 x 4.1 cm and the left kidney measures 12.2 x 4.4 x 4.7 cm. No evidence of calculus or hydronephrosis. In general, there is normal echogenicity of the kidneys. Right lower pole simple appearing 1.8 x 1.8 x 1.2 cm cyst is seen. Left interpole 1.9 x 1.8 x 1.7 cm simple appearing cyst is seen. lobulation of the left kidney. The urinary bladder does not demonstrate obvious filling defect. The ureteral jets are not seen. Volume is not assessed. Procedure Note Liza Gerardo MD - 04/13/2022 PROCEDURE: US RETROPERITONEAL LIMITED, DATE/TIME OF EXAM: 2:54 PM, LOCATION [facility] INDICATION: N28.89: Other specified disorders of kidney and ureter ADDITIONAL CLINICAL INFORMATION: Ordering Provider Reason For Exam: kidney masses. hx of renal cancer Technologist Note: Additional: COMPARISON: CT of the abdomen and pelvis 04/03/2022.. TECHNIQUE: Ultrasound of the kidneys was performed utilizing standard protocol. FINDINGS: The right kidney measures 11.1 x 3.8 x 4.1 cm and the left kidneymeasures 12.2 x 4.4 x 4.7 cm. No evidence of calculus or hydronephrosis. Ingeneral, there is normal echogenicity of the kidneys. Right lower pole simple appearing 1.8 x 1.8 x 1.2 cm cyst is seen. Left interpole 1.9 x 1.8 x 1.7 cm simple appearing cyst is seen. lobulation of the left kidney. The urinary bladder does not demonstrate obvious filling defect. The ureteral jets are not seen. Volume is not assessed. IMPRESSION: Bilateral renal cysts. No calculus, hydronephrosis or mass. Allowing for the history of renal malignancy provided, dedicated renalCT or MR imaging including enhancement would provide more comprehensive evaluation. > Interpreting Provider: Liza Gerardo MD on 04/13/2022 3:30 PM Sandi Blancas PA-C US ORDERABLES * CT ABDOMEN PELVIS WO CONTRAST (04/03/2022 9:26 AM CONFIGURATION MANAGEMENT MANAGER) Anatomical Region Laterality Modality Abdomen, Pelvis Computed Tomogra phy 04/03/2022 9:29 AM CONFIGURATION MANAGEMENT MANAGER Impressions 04/03/2022 9:41 AM CONFIGURATION MANAGEMENT MANAGER IMPRESSION: 1. Noncalcified opacity at the right lower lobe which is unchanged lung cancer screening CT study. Recommend follow-up CT the chest within 6 months. 2. Findings of atherosclerosis. 3. Bowel gas pattern within normal limits. 4. Probable small slightly complex cysts at the kidneys. Follow-up ultrasound of the kidneys within 3 months is recommended. There is also some stranding around the kidneys which is probably secondary to previous obstruction or inflammation. > Interpreting Provider: Leno aCpellan MD on 04/03/2022 9:41 AM Narrative 04/03/2022 9:41 AM CONFIGURATION MANAGEMENT MANAGER PROCEDURE: CT ABDOMEN PELVIS WO CONTRAST, DATE/TIME OF EXAM: 04/03/2022 9:27 AM, LOCATION [facility] INDICATION: R19.7: Diarrhea, unspecified R10.32: Left lower quadrant pain HISTORY: Diarrhea. Left lower quadrant pain. COMPARISON: CT chest done as lung cancer screening study on 01/22/2022. PROCEDURE: CT ABDOMEN PELVIS WO CONTRAST Technique: 5mm axial images were obtained without IV contrast. Oral contrast was provided. Sagittal and coronal reformats were obtained. FINDINGS: Examination of the inferior chest shows a noncalcified opacity at the right lower lobe measuring 2 mm. This was seen on previous CT examination. Recommend follow-up CT within 6 months as well as also recommended in the CT lung cancer screening report. Examination of the abdomen and pelvis. LIVER: Normal ADRENAL GLANDS: Normal PANCREAS: Normal SPLEEN: Normal. KIDNEYS: There is mild stranding around the right and left kidney which is probably secondary to previous obstruction or inflammation. There is a hypodensity at the inferior pole the right kidney measuring 12 mm with a density value of 30. There is also hypodensity the midpole the left kidney measuring 12 mm diameter density value of 12. These are probably slightly complex cyst. A cystic mass would be unlikely. Follow-up imaging with ultrasound within the next 3 months is recommended. BLADDER: normal ASCITES: None ADENOPATHY: no enlarged nodes ADDITIONAL FINDINGS: There is contrast seen within the stomach as well as some loops of small bowel. There is gas and stool seen within the colon. The bowel gas pattern is within normal limits. There is a small tubular structure seen at the right lower quadrant and coronal reformatted images with a transverse diameter of 4 mm. This is probably part of the appendix and is normal in caliber for appendix. . There is calcification of the aorta representing atherosclerosis. BONES: There is osteophyte formation the lower thoracic spine, lumbar spine, and superior sacrum representing degenerative changes. Procedure Note Leno Capellan MD - 04/03/2022 PROCEDURE: CT ABDOMEN PELVIS WO CONTRAST, DATE/TIME OF EXAM: 04/03/2022 9:27 AM, LOCATION [facility] INDICATION: R19.7: Diarrhea, unspecified R10.32: Left lower quadrant pain HISTORY: Diarrhea. Left lower quadrant pain. COMPARISON: CT chest done as lung cancer screening study on 01/22/2022. PROCEDURE: CT ABDOMEN PELVIS WO CONTRAST Technique: 5mm axial images were obtained without IV contrast. Oral contrast was provided. Sagittal and coronal reformats were obtained. FINDINGS: Examination of the inferior chest shows a noncalcified opacity at theright lower lobe measuring 2 mm. This was seen on previous CT examination. Recommend follow-up CT within 6 months as well as also recommended inthe CT lung cancer screening report. Examination of the abdomen and pelvis. LIVER: Normal ADRENAL GLANDS: Normal PANCREAS: Normal SPLEEN: Normal. KIDNEYS: There is mild stranding around the right and left kidney whichis probably secondary to previous obstruction or inflammation. There is a hypodensity at the inferior pole the right kidney measuring 12 mm with a density value of 30. There is also hypodensity the midpole the leftkidney measuring 12 mm diameter density value of 12. These are probablyslightly complex cyst. A cystic mass would be unlikely. Follow-up imaging with ultrasound within the next 3 months is recommended. BLADDER: normal ASCITES: None ADENOPATHY: no enlarged nodes ADDITIONAL FINDINGS: There is contrast seen within the stomach as wellas some loops of small bowel. There is gas and stool seen within the colon. The bowel gas pattern is within normal limits. There is a small tubular structure seen at the right lower quadrant and coronal reformattedimages with a transverse diameter of 4 mm. This is probably part of theappendix and is normal in caliber for appendix. . There is calcification of the aorta representing atherosclerosis. BONES: There is osteophyte formation the lower thoracic spine, lumbar spine, and superior sacrum representing degenerative changes. IMPRESSION: 1. Noncalcified opacity at the right lower lobe which is unchanged lung cancer screening CT study. Recommend follow-up CT the chest within 6 months. 2. Findings of atherosclerosis. 3. Bowel gas pattern within normal limits. 4. Probable small slightly complex cysts at the kidneys. Follow-up ultrasound of the kidneys within 3 months is recommended. There is also some stranding around the kidneys which is probably secondary toprevious obstruction or inflammation. > Interpreting Provider: Leno Capellan MD on 04/03/2022 9:41 AM Sandi NAVAS-C CT ORDERABLES * O+P PANEL (04/02/2022 12:14 PM CONFIGURATION MANAGEMENT MANAGER) O+P Exam Final report [facility] ACCOUNT BILL Comment: These results were obtained using wet preparation(s) and trichrome stained smear. This test does not include testing for Cryptosporidium parvum, Cyclospora, or Microsporidia. Result 1 [facility] ACCOUNT BILL Comment: No ova, cysts, or parasites seen. . One negative specimen does not rule out the possibility of a parasitic infection. Stool STOOL SPECIMEN / Unknown 04/02/2022 12:14 PM CONFIGURATION MANAGEMENT MANAGER 04/02/2022 Narrative Resulting Agency Comment Lab Testing performed at: [facility] [address] [facility] [phone] Sandi Blancas PA-C LAB - MICROBIOLOG Y ORDERABLES [facility] ACCOUNT BILL [address] [place] [address] * (ABNORMAL) C DIFFICILE TOXIN A+B (04/02/2022 12:14 PM CONFIGURATION MANAGEMENT MANAGER) Pathologist [facility] C difficile Toxin A + B Positive(A ) Negative [facility] ACCOUNT BILL Stool STOOL SPECIMEN / Unknown 04/02/2022 12:14 PM CONFIGURATION MANAGEMENT MANAGER 04/02/2022 Narrative Resulting Agency Comment Lab Testing performed at: [facility] [address] [facility] [phone] Sandi Blancas PA-C LAB - MICROBIOLOG Y ORDERABLES [facility] ACCOUNT BILL [address] [place] [address] * CULTURE STOOL PANEL (04/02/2022 12:14 PM CONFIGURATION MANAGEMENT MANAGER) Salmonella/Shigel la Screen Final report [facility] ACCOUNT BILL Result 1 [facility] ACCOUNT BILL Comment:No Salmonella or Joyce gella recovered. E coli Shiga Toxin EIA Negative Negative [facility] ACCOUNT BILL Campylobacter Culture Final report [facility] ACCOUNT BILL Result 1 [facility] ACCOUNT BILL Comment:No Campylobacter spe cies isolated. Stool STOOL SPECIMEN / Unknown 04/02/2022 12:14 PM CONFIGURATION MANAGEMENT MANAGER 04/02/2022 Narrative Resulting Agency Comment Lab Testing performed at: [facility] [address] [facility] [phone] Sandi Blancas PA-C LAB - MICROBIOLOG Y ORDERABLES Performing Organization Address City/[facility]/ZIP Co de Phone Number [facility] ACCOUNT BILL [address] [place] [address] * (ABNORMAL) HEMOGLOBIN A1C (04/01/2022 11:48 AM CONFIGURATION MANAGEMENT MANAGER) Only the most recent of22 resultswithin the time period is included. Hemoglobin A1c 5.9(H) <5.7 % [facility] ACCOUNT BILL Comment: AVERAGE GLUCOSE MG/DL BLOOD 123 mg/dL HbA1c Interpretation: Normal: < 5.7% Pre-diabetes: 5.7-6.4% [...] diabetes, pediatric patients, or women. Falsely low HbA The [employer] Voltage Inspector assay for the measurement of HbA1c is a National Glycohemoglobin Standardization Program (NGSP) certified method. Blood BLOOD SPECIMEN / Unknown 04/01/2022 11:48 AM CONFIGURATION MANAGEMENT MANAGER 04/01/2022 Narrative Resulting Agency Comment Lab Testing performed at: [facility] [address] [place] [phone] Sandi Blancas PA-C LAB - CHEMISTRY O RDERABLES [facility] ACCOUNT BILL [address] [place] [address] * (ABNORMAL) IRON + TIBC PANEL (04/01/2022 11:48 AM CONFIGURATION MANAGEMENT MANAGER) TIBC 388 250 - 450 ug/dL [facility] ACCOUNT BILL UIBC 370(H) 118 - 369 ug/dL [facility] ACCOUNT BILL Iron 18(L) 27 - 139 ug/dL [facility] ACCOUNT BILL Iron Saturation 5(LL) 15 - 55 % [facility] ACCOUNT BILL 04/01/2022 11:4 8 AM CONFIGURATION MANAGEMENT MANAGER 04/01/2022 Narrative Resulting Agency Comment Lab Testing performed at: [facility] [address] [facility] [phone] Sandi Blancas PA-C LAB - CHEMISTRY O RDERAARLYN Performing Organization Address City/[facility]/ZIP Co de Phone Number [facility] ACCOUNT BILL [address] [place] [address] * FERRITIN (04/01/2022 11:48 AM CONFIGURATION MANAGEMENT MANAGER) Pathologist [facility] Ferritin 10 5 - 204 ng/mL [facility] ACCOUNT BILL 04/01/2022 11:4 8 AM CONFIGURATION MANAGEMENT MANAGER 04/01/2022 Narrative Resulting Agency Comment Lab Testing performed at: [address] [place] [phone] Sandi Blancas PA-C LAB - CHEMISTRY O RDERABLES [facility] ACCOUNT BILL [address] [place] [address] * (ABNORMAL) URINALYSIS MICROSCOPIC ONLY REFLEXED (04/01/2022 11:47 AM CONFIGURATION MANAGEMENT MANAGER) Only the most recent of4 resultswithin the time period is included. WBC UA 6-10(A) 0 - 5 /hpf [facility] ACCOUNT BILL RBC UA None seen 0 - 2 /hpf [facility] ACCOUNT BILL Epithelial Cells (non renal) >10(A) 0 - 10 /hpf [facility] ACCOUNT BILL Epithelial Cells (renal) NOT AVAILABLE [facility] ACCOUNT BILL Comment:Result cannot be obt ained for this observation. Casts ua None seen None seen /lpf [facility] ACCOUNT BILL Casts UA NOT AVAILABLE [facility] ACCOUNT BILL Comment:Result cannot be obt ained for this observation. Crystals UA NOT AVAILABLE [facility] ACCOUNT BILL Comment:Result cannot be obt ained for this observation. Crystals UA NOT AVAILABLE [facility] ACCOUNT BILL Comment:Result cannot be obt ained for this observation. Mucus UA NOT AVAILABLE [facility] ACCOUNT BILL Comment:Result cannot be obt ained for this observation. Bacteria UA Few None seen/Few [facility] ACCOUNT BILL Yeast UA NOT AVAILABLE [facility] ACCOUNT BILL Comment:Result cannot be obt ained for this observation. Trichomonas UA NOT AVAILABLE [facility] ACCOUNT BILL Comment:Result cannot be obt ained for this observation. Comment Urine NOT AVAILABLE [facility] ACCOUNT BILL Comment:Result cannot be obt ained for this observation. 04/01/2022 11:4 7 AM CONFIGURATION MANAGEMENT MANAGER 04/01/2022 Narrative Resulting Agency Comment Lab Testing performed at: [facility] [address] [facility] [phone] Sandi Blancas PA-C LAB - URINALYSIS ORDERABLES [facility] ACCOUNT BILL [address] [place] [address] * (ABNORMAL) URINALYSIS W/MICROSCOPIC REFLEX TO CULTURE (04/01/2022 11:47 AM CONFIGURATION MANAGEMENT MANAGER) Only the most recent of4 resultswithin the time period is included. Specific [place] UA 1.016 1.005 - 1.030 [facility] ACCOUNT BILL pH UA 5.5 5.0 - 7.5 [facility] ACCOUNT BILL Color UA Yellow Yellow [facility] ACCOUNT BILL Appearance Cloudy(A) Clear [facility] ACCOUNT BILL Leukocyte UA 2+(A) Negative [facility] ACCOUNT BILL Protein UA Negative Negative/Tr raj [facility] ACCOUNT BILL Glucose UA Negative Negative [facility] ACCOUNT BILL Ketone UA Negative Negative [facility] ACCOUNT BILL Occult Blood Urine Negative Negative [facility] ACCOUNT BILL Bilirubin UA Negative Negative [facility] ACCOUNT BILL Urobilinogen 0.2 0.2 - 1.0 mg/dL [facility] ACCOUNT BILL Nitrite UA Negative Negative [facility] ACCOUNT BILL Microscopic Examination Urine See below: [facility] ACCOUNT BILL Comment:Microscopic was radha cated and was performed. Microscopic Examination Urine NOT AVAILABLE [facility] ACCOUNT BILL Comment:Result cannot be obt ained for this observation. Urinalysis Reflex [facility] ACCOUNT BILL Comment:This specimen has re flexed to a Urine Culture. Urine URINE SPECIMEN OBTAINED BY CLEAN CATCH PROCEDURE / Unknown 04/01/2022 11:47 AM CONFIGURATION MANAGEMENT MANAGER 04/01/2022 Narrative Resulting Agency Comment Lab Testing performed at: [facility] [phone] Sandi Blancas PA-C LAB - URINALYSIS ORDERABLES Performing Organization Address City/[facility] Co de Phone Number [facility] ACCOUNT BILL [address] [place] [address] * CULTURE URINE COMPREHENSIVE (04/01/2022 11:47 AM CONFIGURATION MANAGEMENT MANAGER) Only the most recent of3 resultswithin the time period is included. Urine Culture Comprehensive Final report [facility] ACCOUNT BILL Result 1 [facility] ACCOUNT BILL Comment: Mixed urogenital karolina 2,000 Colonies/mL 04/01/2022 11:4 7 AM CONFIGURATION MANAGEMENT MANAGER 04/01/2022 Narrative Resulting Agency Comment Lab Testing performed at: [facility] [phone] Sandi Blancas PA-C LAB - MICROBIOLOG Y ORDERABLES Performing Organization Address City/[facility] Co de Phone Number [facility] ACCOUNT BILL [address] [place] [address] * PATHOLOGY/CYTOLOGY REPORT ORDER (03/12/2022) Only the most recent of2 resultswithin the time period is included. 03/12/2022 Narrative 03/12/2022 Ordered by an unspecified provider. Scanned Document LAB - PATHOLOGY/CYTO LOGY ORDERABLES * COLONOSCOPY (03/10/2022) 03/10/2022 Narrative 03/10/2022 Ordered by an unspecified provider. Scanned Document SCANNING ONLY * (ABNORMAL) CULTURE URINE (01/26/2022 11:27 AM CONFIGURATION MANAGEMENT MANAGER) Only the most recent of2 resultswithin the time period is included. Urine Culture Routine Final report(A) [facility] ACCOUNT BILL Result 1 (A) [facility] ACCOUNT BILL Comment: Beta hemolytic Streptococcus, group B 25,000-50,000 colony forming units per mL Penicillin and ampicillin are drugs of choice for treatment of beta-hemolytic streptococcal infections. Susceptibility testing of penicillins and other beta-lactam agents approved by the FDA for treatment of beta-hemolytic streptococcal infections need not be performed routinely because nonsusceptible isolates are extremely rare in any beta-hemolytic streptococcus and have not been reported for Streptococcus pyogenes (group A). (CLSI) Urine URINE SPECIMEN OBTAINED BY CLEAN CATCH PROCEDURE / Unknown 01/26/2022 11:27 AM CONFIGURATION MANAGEMENT MANAGER 01/26/2022 Narrative Resulting Agency Comment [facility] [address] [facility] [phone] Isaias Pino MD LAB - MICROBIOLOGY O MYNOR Performing Organization Address [facility] de Phone Number [facility] ACCOUNT BILL [address] [place] [address] * (ABNORMAL) C-REACTIVE PROTEIN (01/26/2022 10:36 AM CONFIGURATION MANAGEMENT MANAGER) Only the most recent of3 resultswithin the time period is included. C-Reactive Protein 0.79(H) <=0.50 mg/dL [facility] ACCOUNT BILL Blood BLOOD SPECIMEN / Unknown 01/26/2022 10:36 AM CONFIGURATION MANAGEMENT MANAGER 01/26/2022 Narrative Resulting Agency Comment Lab Testing performed at: [facility] [place] [address] [place] [phone] Isaias Pino MD LAB - CHEMISTRY CRISTOBAL NASH Performing Organization Address City/[facility]/ZIP Co de Phone Number [facility] ACCOUNT BILL [address] [place] [address] * C-PEPTIDE (01/26/2022 10:36 AM CONFIGURATION MANAGEMENT MANAGER) Only the most recent of2 resultswithin the time period is included. [facility] C-Peptide 3.6 1.1 - 4.4 ng/mL [facility] ACCOUNT BILL Comment:C-Peptide reference interval is for fasting patients. Blood BLOOD SPECIMEN / Unknown 01/26/2022 10:36 AM CONFIGURATION MANAGEMENT MANAGER 01/26/2022 Narrative Resulting Agency Comment Lab Testing performed at: [facility] [address] [facility] [phone] Isaias Pino MD LAB - CHEMISTRY CRISTOBAL NASH Performing Organization Address City/[facility]/ZIP Co de Phone Number [facility] ACCOUNT BILL [address] [place] [address] * (ABNORMAL) ERYTHROCYTE SEDIMENTATION RATE (01/26/2022 10:36 AM CONFIGURATION MANAGEMENT MANAGER) Only the most recent of2 resultswithin the time period is included. [facility] Erythrocyte Sedimentation Rate Westergren 52(H) 0 - 30 MM/HR [facility] ACCOUNT BILL Blood BLOOD SPECIMEN / Unknown 01/26/2022 10:36 AM CONFIGURATION MANAGEMENT MANAGER 01/26/2022 Narrative Resulting Agency Comment Lab Testing performed at: [address] [place] [phone] Isaias Pino MD LAB - HEMATOLOGY ORD ERAARLYN [facility] ACCOUNT BILL [address] [place] [address] * (ABNORMAL) URINALYSIS AUTO - POINT OF CARE (01/26/2022 10:35 AM CONFIGURATION MANAGEMENT MANAGER) Only the most recent of5 resultswithin the time period is included. [facility] Clarity UA POCT clear [facility] Color UA POCT judie [facility] Leukocyte UA negative Negative [facility] Nitrite UA POCT negative Negative [facility] Urobilinogen UA 0.2 0.1 - 1.0 [facility] Protein UA POCT +-(A) Negative [facility] pH UA 6.0 5.0 - 8.0 pH units [facility] Blood UA negative Negative [facility] Specific [place] UA POCT 1.020 1.002 - 1.030 [facility] Ketone UA negative Negative [facility] Bilirubin UA POCT negative Negative [facility] Glucose UA negative Negative [facility] Urine URINE / Unknown 01/26/2022 1 0:35 AM CONFIGURATION MANAGEMENT MANAGER Isaias Pino MD LAB - POINT OF CARE ORDERABLES Performing Organization Address City/[facility]/ZIP Co de Phone Number PAULINA GIBBS [address] [phone] * SS-A/SS-B (SJOGREN'S) ANTIBODY PANEL (01/08/2022 9:44 AM CONFIGURATION MANAGEMENT MANAGER) Sjogren's Antibodies (SSA) <0.2 0.0 - 0.9 AI [facility] ACCOUNT BILL Sjogren's Antibodies (SSB) <0.2 0.0 - 0.9 AI [facility] ACCOUNT BILL Blood BLOOD SPECIMEN / Unknown 01/08/2022 9:44 AM CONFIGURATION MANAGEMENT MANAGER 01/08/2022 Narrative Resulting Agency Comment Lab Testing performed at: [facility] [address] [facility] [phone] Sandi Blancas PA-C LAB - CHEMISTRY O RDERABLES [facility] ACCOUNT BILL [address] [place] [address] * (ABNORMAL) LIPID PROFILE (01/08/2022 9:44 AM CONFIGURATION MANAGEMENT MANAGER) Only the most recent of9 resultswithin the time period is included. Cholesterol 132 <200 mg/dL [facility] ACCOUNT BILL Triglycerides 115 <150 mg/dL [facility] ACCOUNT BILL HDL Cholesterol 32(L) >40 mg/dL [facility] ACCOUNT BILL VLDL Calculated 23 <=30 mg/dL [facility] ACCOUNT BILL LDL Calculated 77 <130 mg/dL [facility] ACCOUNT BILL Blood BLOOD SPECIMEN / Unknown 01/08/2022 9:44 AM CONFIGURATION MANAGEMENT MANAGER 01/08/2022 Narrative Resulting Agency Comment Lab Testing performed at: Count includes the [facility] [address] [place] [phone] Sandi Blancas PA-C LAB - CHEMISTRY O RDERABLES [facility] ACCOUNT BILL [address] [place] [address] * HEMOGLOBIN A1C - POINT OF CARE (AMB) (01/08/2022 9:04 AM CONFIGURATION MANAGEMENT MANAGER) [facility] Hemoglobin A1c POCT 6.0 % [facility] Expiration Date [id number] [facility] Lot # [id number] [facility] QC Verified Yes Yes [facility] Blood BLOOD SPECIMEN / Unknown 01/08/2022 9:04 AM CONFIGURATION MANAGEMENT MANAGER Sandi Blancas PA-C LAB - POINT OF CA RE ORDERABLES Performing Organization Address [facility] Co de Phone Number [facility] [address] [place] [address], [facility] [phone] * CARDIAC RHYTHM STRIP ORDER (08/11/2021 2:35 PM CDT) Narrative 08/11/2021 2:35 PM CDT Ordered by an unspecified provider. Scanned Document CARDIAC SERVICES ORD ERABLES * CARDIAC PROCEDURE ORDER (08/09/2021 11:23 AM CDT) Narrative 08/09/2021 11:23 AM CDT Ordered by an unspecified provider. Scanned Document CARDIAC SERVICES ORD ERABLES * (ABNORMAL) GLUCOSE - POINT OF CARE (08/06/2021 5:04 PM CDT) Only the most recent of14 resultswithin the time period is included. Glucose WB/POC 251(H) 70 - 106 mg/dL 08/06/2021 5:05 PM CDT [facility] Specimen Type Cap Fingerstick 2021 5:05 PM CDT [facility] Blood BLOOD SPECIMEN / Unknown 08/06/2021 5:04 PM CDT 08/06/2021 5:05 PM CDT Estevan Gomez MD LAB - POINT OF CARE ORDERABLES [facility] [address] [place] [id number] * EKG 12-LEAD (SPECIFY TIME) (08/06/2021 6:06 AM CDT) Only the most recent of3 resultswithin the time period is included. Pathologist [facility] Ventricular Rate 76 BPM [facility] Atrial Rate 76 BPM [facility] P-R Interval 196 ms [facility] QRS Duration ms 92 ms [facility] Q-T Interval ms 432 ms [facility] QTC Calculation (Bezet) 486 ms [facility] Calculated P [place] 64 degrees [facility] Calculated R [place] 40 degrees [facility] Calculated T [place] 61 degrees [facility] Interpretation EKG Normal sinus rhythm Normal ECG When compared with ECG of 28-FEB-2015 10:31, QT has lengthened Confirmed by CLARA COLEMAN, DESTINY GALLARDO ([id number]) on 08/07/2021 10:59:06 AM DP MUSE 08/06/2021 6:06 AM CDT 08/07/2021 10:59 AM CDT Estevan Gomez MD ECG ORDERABLES Performing Organization Address City/[facility]/ZIP Co de Phone Number [facility] * PTT (08/05/2021 5:33 PM CDT) Only the most recent of2 resultswithin the time period is included. Pathologist [facility] PTT 23.5 23.0 - 38.4 sec 08/05/2021 5:57 PM CDT [facility] Comment:This result represen ts a significant difference from this patient's most recent previous value. Clinical correlation is therefore recommended. Blood BLOOD SPECIMEN / Unknown Venipuncture / Unknown 08/05/2021 5:33 PM CDT 08/05/2021 5:40 PM CDT Narrative [facility] - 08/05/2021 5:57 PM CDT Heparin Therapeutic Range for PTT: 69.0 - 110.0 seconds. Estevan Gomez MD LAB - COAGULATION OR DERABLES [facility] [address] [place] [address] * CARDIAC CATH PROCEDURE (08/05/2021 12:00 PM CDT) 08/05/2021 12:0 0 PM CDT Narrative Procedure Note Estevan Gomez MD - 08/06/2021 3:54 AM CDT [facility] CARDIAC CATHETERIZATION PATIENT: NATALIA PRESTON MR#: [id number] ADMIT DATE: 08/05/2021 CSN: [id number] PROCEDURE DATE: 08/05/2021 :1945 PHYSICIAN: Estevan Gomez MD ROOM: [facility] REFERRING PHYSICIAN: Estevan Gomez MD INDICATION: Chest discomfort, abnormal stress test. Abnormal CTcoronary angiogram. PROCEDURE: Coronary angiography, left ventriculography, IFR measurementof the left anterior descending artery, CSI atherectomy, percutaneous transluminal coronary angioplasty and stent of the left anteriordescending artery. DESCRIPTION OF PROCEDURE: Informed consent for the procedure wasobtained from the patient. After local infiltration with 1% lidocaine, a5-Dutch sheath was placed in the right femoral artery. We had difficultyadvancing the J-wire. A Tashi wire crossed the iliac vessel safely. Catheter exchanges were made over exchange wire. Selective coronary angiographywas performed with a 5-Dutch JL4 and a 5-Dutch JR4 catheter. A 5-Frenchpigtail catheter crossed the aortic valve. Left ventriculography was performed. IFR measurement of the LAD was performed with a 5-Dutch EBU 3.5 guideand Verrata wire. Heparin was given for anticoagulation. FINDINGS: 1. Left main artery arises from the left sinus of Valsalva. Moderate calcification with mild irregularities. 2. Left anterior descending artery is a moderate caliber vessel.Moderate calcification is seen in the proximal to mid vessel with mild irregularities. The mid LAD has a 60% to 70% stenosis with calcification. This corresponds to the lesion noted on the CTcoronary angiogram. IFR in the LAD was 0.82 and 0.84. Pullback pressureswere measured. A definite gradient was seen in the mid vessel lesion andthe flow normalized just proximal to the mid lesion. 3. Left circumflex artery is a moderate caliber nondominant vessel withno significant stenosis. 4. Right coronary artery is a moderate caliber dominant vessel. Mild calcification with mild irregularities are seen. LEFT VENTRICULOGRAPHY: 1. Reveals normal left ventricular systolic function. No significantmitral regurgitation. Less than 5 mm gradient was seen across the aorticvalve. Decision was made to proceed with percutaneous intervention of the LAD.Heavy calcification was noted on the CT coronary angiogram. We decided to do aCSI atherectomy. A 5-Dutch sheath was exchanged for a 6-Dutch sheath. A6- Dutch EBU3.5 guide was used to cannulate the left main artery. Heparinwas given. ACT was therapeutic. A Viper wire crossed the LAD stenosissafely. CSI atherectomy was performed. Subsequently, PTCA was performed with a2.5 x 12 mm noncompliant Trek balloon. This segment was stented with a 3.0 x 18mm Xience. This was postdilated with a 3.0 noncompliant balloon. Stenosiswas reduced from 60% to 70% to 0%. PETERSON-3 flow seen in the LAD. Brilintabolus was given prior to stenting. IMPRESSION: 1. Significantly calcified mid LAD stenosis with a positive IFR.Successful atherectomy, percutaneous transluminal coronary angioplasty anddrug- eluting stent placement in the mid left anterior descending artery. 2. Normal left ventricular systolic function. 3. I have discussed the results with the patient and family. Risks of restenosis and stent thrombosis were discussed. Compliance with medications, especially dual antiplatelet therapy was stressed tothem. Sedation was administered under my supervision by Marivel Deleon RN.Total duration was 1 hour 27 minutes. The patient received Versed andfentanyl. ESTEVAN GOMEZ MD AV/MODL #: [id number] MEDICAL/SURGICAL CARDIAC CATHETERIZATION - DP Estevan Gomez MD CARDIAC SERVICES ORD ERABLES [facility] * (ABNORMAL) ACT LR - POCT ([facility]) (08/05/2021 11:43 AM CDT) Only the most recent of3 resultswithin the time period is included. ACT LR 202(H) 125 - 187 sec 08/05/2021 12:55 PM CDT [facility] Blood BLOOD SPECIMEN / Unknown 08/05/2021 11:43 AM CDT 08/05/2021 12:55 PM CDT Estevan Gomez MD LAB - COAGULATION OR DERABLES Performing Organization Address City/[facility]/ZIP Co de Phone Number [facility] [address] [place] [phone] * CT CARDIAC ANGIO W MICHEL EVAL (07/22/2021 12:43 PM CDT) Anatomical Region Laterality Modality Chest Computed Tomogra phy 07/22/2021 5:11 PM CDT Impressions 07/23/2021 9:48 AM CDT Significant calcified atheromatous plaques involving the right coronary artery, left anterior descending coronary artery and left circumflex coronary artery. The degree of calcified atheromatous plaquing limits assessment for percent luminal stenosis however, these plaques appear to be predominantly eccentric. At the level of the mid left anterior descending coronary artery, the plaques are significant enough to create what appears to be hemodynamically significant stenosis (approximately 60-80%) *Reading Radiologist: Tello Russell on 07/23/2021 at 9:48 AM Narrative 07/23/2021 9:[address] ANGIOGRAM CARDIAC Indication: Chest pain, abnormal stress test Helical CT angiography of the heart was performed with retrospective cardiac. 100 mL Isovue-370 contrast was administered IV. The patient was given 4 separate 5 mg IV metoprolol doses and a single sublingual nitroglycerin prior to the procedure. Segmentation of the coronary arteries was created in 2-D and 3-D volume-rendered techniques at a separate work station. The heart rate at the time of the exam was 76 bpm. The coronary circulation is right dominant with the posterior descending artery taking its origin from the right coronary artery. There are no coronary artery anomalies. The calculated left ventricular ejection fraction is 67%. Fairly severe calcified atheromatous changes are present involving the right, left main, left anterior descending, and left circumflex coronary arteries. The degree of calcified atheromatous plaque limits assessment of actual percent luminal narrowing due to calcification castro artifact. For the most part, these calcified atheromatous changes are eccentric and do not appear to create hemodynamically significant stenosis however, in the region of the mid left anterior descending, the calcifications become more significant and appear to create greater than 60% luminal stenosis. Aortic valvular calcifications are also noted. The heart size is within the upper limits of normal. There is no thoracic aortic aneurysm or dissection. There is no pericardial or pleural effusion. There is background emphysema but no focal infiltrate or consolidation. A discrete pulmonary mass is not identified. Procedure Note Tello Russell MD - 07/23/2021 CT ANGIOGRAM CARDIAC Indication: Chest pain, abnormal stress test Helical CT angiography of the heart was performed with retrospective cardiac. 100 mL Isovue-370 contrast was administered IV. The patient was given 4 separate 5 mg IV metoprolol doses and a single sublingual nitroglycerin prior to the procedure. Segmentation of the coronary arteries was created in 2-D and 3-D volume-rendered techniques at a separate work station. The heart rate at the time of the exam was 76 bpm. The coronary circulation is right dominant with the posterior descending artery taking its origin from the right coronary artery. There are no coronary artery anomalies. The calculated left ventricular ejection fraction is 67%. Fairly severe calcified atheromatous changes are present involving the right, left main, left anterior descending, and left circumflex coronary arteries. The degree of calcified atheromatous plaque limits assessment of actual percent luminal narrowing due to calcification castro artifact. For the most part, these calcified atheromatous changes are eccentric and do not appear to create hemodynamically significant stenosis however, in the region of the mid left anterior descending, the calcifications become more significant and appear to create greater than 60% luminal stenosis. Aortic valvular calcifications are also noted. The heart size is within the upper limits of normal. There is no thoracic aortic aneurysm or dissection. There is no pericardial or pleural effusion. There is background emphysema but no focal infiltrate or consolidation. A discrete pulmonary mass is not identified. IMPRESSION Significant calcified atheromatous plaques involving the right coronary artery, left anterior descending coronary artery and left circumflex coronary artery. The degree of calcified atheromatous plaquing limits assessment for percent luminal stenosis however, these plaques appear to be predominantly eccentric. At the level of the mid left anterior descending coronary artery, the plaques are significant enough to create what appears to be hemodynamically significant stenosis (approximately 60-80%) *Reading Radiologist: Tello Russell on 07/23/2021 at 9:48 AM Estevan Gomez MD CT ORDERABLES * ECHOCARDIOGRAM STRESS Walking Stress ECHO (05/06/2021 10:14 AM CDT) 05/06/2021 10:1 4 AM CDT Narrative Procedure Note Mary Ellen Babin MD - 05/07/2021 . [facility] [address] [place] [address] Echocardiography Examination Stress Echo Name: NATALIA PRESTON MPI#: MR#: [id number] Admission Number: [id number] Study Date: 05/06/2021 Study Time: 10:57 AM Date Of : 1945 Age: 75 years Height: 63 in. (160.0 cm) Weight: 213 lbs. (96.62 kg) BSA: 1.99 m2 Gender: Female Blood Pressure: 140 mmHg / 76 mmHg Heart Rate: 107 bpm Exam Details Procedure Ordered: STRESS ECHOCARDIOGRAM Procedure Components: Stress Echo Procedure Status: Routine study Facility Location: [facility] Indication: Detection of coronary artery disease Procedure Steam Box Tender: Capri Romano RDCS Ordering Provider: Estevan Gomez MD Reading Physician: Mary Ellen Babin MD Conclusions Left Ventricle: Left ventricle is normal in size. Normal global systolic left ventricular function. There are no regional wall motion abnormalities at rest. Mid to apical inferior wall hypokinesis noted with exercise. There is normal augmentation of left ventricular contractility with exercise. Overall Conclusions: Echo evidence of exercise induced ischemia Follow up: Findings Left Ventricle: Left ventricle is normal in size. Normal global systolic left ventricular function. EF evaluated by visual assessment. There are no regional wall motion abnormalities at rest. Mid to apical inferior wall hypokinesis noted with exercise. There is Patient: NATALIA PRESTON Study Date: 05/06/2021 10:57 AM Page 1 of 2 normal augmentation of left ventricular contractility with exercise. Stress ECG Impressions: Reason for Termination - Fatigue, Dyspnea. Stress Echo Impressions: Assessment: Normal LV function. Assessment: No stress induced wall motion abnormalities. Negative stress echo test. LV Wall Motion Analysis: At rest, no wall motion abnormalities. With stress, mid to apcial inferior wall motion abnormalities. Stress Details Type of Stress: Mina Device: Treadmill Exercise Time: 02:11 Reason for Termination: Fatigue, Dyspnea Resting BP: 140/76 Max BP: 164/68 Max RPP: 44769 mmHg*bpm Resting HR: 107 bpm Max HR: 136 bpm Physical Stress Examination Protocol Stage Time in Speed Grade METS HR BP ST Cardiac Cardiac Other Changes Symptom Name Stage Level Arrhy Symp. Pain Baseline 15:55 107 140/76 bpm Stage 1 02:11 1.70 10.00 % 136 150/78 mph bpm Recover 05:04 113 164/68 y 1 bpm (No Signature Object) Patient: NATALIA PRESTON Study Date: 05/06/2021 10:57 AM Page 2 of 2 Estevan Gomez MD ECHO ORDERABLES [facility] * REF LAB-PLEASE NOTE (04/23/2021 10:00 AM CONFIGURATION MANAGEMENT MANAGER) Please Note [facility] ACCOUNT BILL Comment: We have received your request for additional testing or test verification. You will be notified if we are unable to process your request. FASTING 04/23/2021 10:0 0 AM CONFIGURATION MANAGEMENT MANAGER 04/23/2021 Narrative Resulting Agency Comment Lab Testing performed at: [facility] [address] [facility] [phone] Sandi Blancas PA-C LAB - CHEMISTRY O RDERABLES Performing Organization Address City/[facility] Co de Phone Number [facility] ACCOUNT BILL [address] [place] [address] * T3 FREE (04/23/2021 10:00 AM CONFIGURATION MANAGEMENT MANAGER) Only the most recent of4 resultswithin the time period is included. T3 Free 2.25 1.58 - 3.91 pg/mL [facility] ACCOUNT BILL Comment: Attention clinician: Reference Range has changed. FASTING Blood BLOOD SPECIMEN / Unknown 04/23/2021 10:00 AM CONFIGURATION MANAGEMENT MANAGER 04/28/2021 Narrative Resulting Agency Comment Lab Testing performed at: Count includes the [facility] [address] [place] [phone] Sandi Blancas PA-C LAB - CHEMISTRY O RDORAL Performing Organization Address City/[facility] Co de Phone Number [facility] ACCOUNT BILL [address] [place] [address] * ECHOCARDIOGRAM 2D WITH DOPPLER (03/31/2021 11:29 AM CONFIGURATION MANAGEMENT MANAGER) 03/31/2021 11:2 9 AM CONFIGURATION MANAGEMENT MANAGER Narrative Procedure Note Estevan Gomez MD - 04/05/2021 . [facility] [address] [place] [address] Echocardiography Examination Transthoracic Name: NATALIA PRESTON [facility]#: MR#: [id number] Admission Number: [id number] Study Date: 03/31/2021 Study Time: 11:14 AM Date Of : 1945 Age: 75 years Height: 63 in. (160.0 cm) Weight: 210 lbs. (95.26 kg) BSA: 1.97 m2 Gender: Female Blood Pressure: 139 mmHg / 53 mmHg Heart Rate: 78 bpm Exam Details Procedure Ordered: ECHOCARDIOGRAM 2D W/DOPPLER Procedure Components: Complete 2D, M-mode, complete spectral Doppler, color Doppler Procedure Status: Routine study Facility Location: [facility] Indication: Murmur Procedure Steam Box Tender: Capri Romano RDCS Ordering Provider: SANDI BLANCAS Reading Physician: Estevan Gomez MD Conclusions Left Ventricle: Left ventricle is normal in size. Normal global systolic left ventricular function. EF 70 %. Left ventricle wall thickness is normal. There are segmental wall motion abnormalities. Doppler parameters are consistent with abnormal left ventricular relaxation (Grade 1 diastolic dysfunction). Follow up: Findings Left Ventricle: Left ventricle is normal in size. Normal global systolic left ventricular function. EF evaluated by biplane method of disks. EF 70 %. Left ventricle wall thickness is normal. There are segmental wall motion abnormalities. The apical septal left ventricular segment is hypokinetic. Doppler parameters are consistent with abnormal left ventricular relaxation (Grade 1 Patient: NATALIA PRESTON Study Date: 03/31/2021 11:14 AM Page 1 of 4 diastolic dysfunction). Right Ventricle: Normal size right ventricle. Right ventricular wall thickness is normal. Right ventricular systolic function is normal. Pulmonary artery pressure normal. Left Atrium: The left atrium is normal in size. Right Atrium: The right atrium is normal in size. Mitral Valve: Mitral leaflets exhibit normal cuspal separation. No mitral regurgitation. No mitral valve stenosis. Aortic Valve: Aortic leaflets exhibit normal cuspal separation. No aortic valve regurgitation. There is no aortic stenosis. Tricuspid Valve: Tricuspid valve leaflets are normal. No tricuspid regurgitation. No tricuspid valve stenosis. Pulmonic Valve: Pulmonic leaflets exhibit normal cuspal separation. No pulmonic valve regurgitation is evident. There is no pulmonic valve stenosis. Aorta: The aorta is normal. No dilation of the ascending aorta. The aortic root exhibits normal size. Great Vessels: IVC: The inferior vena cava is normal in size and course. Pericardium: The pericardium is normal in appearance. No pericardial effusion. Clinical Data Comment: Hx of HTN, DM, HLD, Ex Smoker Measurements Anatomy Label Value Normal Value Aorta AoRoot, MM 3 cm (2.2cm - 3.7cm) Aortic Valve AV Vmean 1.55 m/s Aortic Valve AV VTI 42.51 cm Aortic Valve AV PGmax 22 mmHg Aortic Valve AV PGmean 10 mmHg Aortic Valve AV Vmax, Curve 2.35 m/s (1m/s - 1.7m/s) Aortic Valve LVOT VTI / AV VTI 0.51 Aortic Valve ART D (continuity eq. VTI) 1.6 cm Aortic Valve ART Index (continuity 0.66 cm /m eq.Vmax) Aortic Valve AV Opening, MM 1.4 cm Aortic Valve LVOT Vmax / AV Vmax 0.41 Interventricular septum IVSd, 2D 1 cm (0.6cm - 1.1cm) Left Atrium LADs, MM 3.7 cm (2.7cm - 3.8cm) Left Atrium LA Area s, A4C 17 cm (0cm - 20cm ) Left Atrium LA Area s, A2C 15.8 cm (0cm - 20cm ) Left Atrium LAESV, MOD4 43 ml (22ml - 52ml) Left Atrium LAESV, MOD2 43 ml (22ml - 52ml) Left Atrium LA/AO Ratio, MM 1.23 Left Atrium LAESV index, MOD4 21.8 ml/m Left Atrium LAESV index, MOD2 21.8 ml/m Patient: NATALIA PRESTON Study Date: 03/31/2021 11:14 AM Page 2 of 4 Left Atrium LAESV index, AL4 24.4 ml/m Left Atrium LAESV index, AL2 22.8 ml/m Left Ventricle LVOT Vmax 0.97 m/s (0.7m/s - 1.1m/s) Left Ventricle LVOTd 2 cm (1.8cm - 2cm) Left Ventricle LVOT VTI 21.73 cm (18cm - 22cm) Left Ventricle LVOT PGmax 4 mmHg Left Ventricle LVEF visual 70 % (55% - 75%) Left Ventricle LVDd, 2D 4 cm (3.7cm - 5.2cm) Left Ventricle LVDs, 2D 2.7 cm (2.2cm - 3.5cm) Left Ventricle LVPWd, 2D 1 cm (0.6cm - 0.9cm) Left Ventricle FS, 2D 32.5 % Left Ventricle LVEDV, BP 58 ml (56ml - 104ml) Left Ventricle LVESV, BP 17 ml (19ml - 49ml) Left Ventricle LVEDV Index, BP 29.4 ml/m (35ml/m - 75ml/m ) Left Ventricle LVESV Index, BP 8.6 ml/m (12ml/m - 30ml/m ) Left Ventricle LVOT PGmean 2 mmHg Left Ventricle LVOT Vmean 0.73 m/s Left Ventricle Diastolic MV E Vmax 0.63 m/s Function Left Ventricle Diastolic MV A Vmax 0.77 m/s Function Left Ventricle Diastolic MV E/A 0.82 Function Left Ventricle Diastolic MV E/E' lateral 6.35 Function Left Ventricle Diastolic MV E/E' septal 6.98 (0.45 - 1.25) Function Left Ventricle Diastolic MV DT 236 ms Function Left Ventricle Diastolic MV E' septal 0.09 m/s Function Left Ventricle Diastolic MV E' lateral 0.1 m/s Function Left Ventricle Diastolic MV E/E' mean 6.63 Function Left Ventricle Diastolic MV E' mean 0.1 m/s Function Mitral Valve MV Dec [place] 2.67 m/s Pulmonic Valve PV PGmax 6 mmHg Pulmonic Valve PV Vmax, Caliper 1.19 m/s (0.6m/s - 0.9m/s) Right Atrium RA Area s 12.7 cm Right Atrium RA Vol, 2D 31 ml Right Atrium RA Index 15.7 ml/m (No Signature Object) Wall Motion Scores Patient: NATALIA PRESTON Study Date: 03/31/2021 11:14 AM Page 3 of 4 -1 - hyperkinesia, 0 - not evaluated, 1 - normal, 2 - hypokinesia, 3 - akinesia, 4 - dyskinesia, 5 - aneurysm Patient: NATALIA PRESTON Study Date: 03/31/2021 11:14 AM Page 4 of 4 Sandi Blancas PA-C ECHO ORDERABLES [facility] CCW * XR CHEST 2VW (03/13/2021 2:05 PM CONFIGURATION MANAGEMENT MANAGER) Anatomical Region Laterality Modality Chest Radiographic Nataly ging 03/13/2021 2:20 PM CONFIGURATION MANAGEMENT MANAGER Narrative 03/13/2021 2:23 PM CONFIGURATION MANAGEMENT MANAGER STUDY: Frontal and lateral views of the chest. HISTORY: Cough and congestion for 2 weeks. COMPARISON: None available. FINDINGS: The cardiomediastinal silhouette is normal. The pulmonary vasculature is unremarkable. The lungs are clear. There is no pleural effusion. There is no pneumothorax. The osseous structures are grossly unremarkable. A small orthopedic anchor is superimposed at the left humeral head. IMPRESSION: No acute cardiopulmonary findings. *Reading Radiologist: Aj Alarcon on 03/13/2021 at 2:23 PM Procedure Note Aj Alarcon MD - 03/13/2021 STUDY: Frontal and lateral views of the chest. HISTORY: Cough and congestion for 2 weeks. COMPARISON: None available. FINDINGS: The cardiomediastinal silhouette is normal. The pulmonary vasculature is unremarkable. The lungs are clear. There is no pleural effusion. There is no pneumothorax. The osseous structures are grossly unremarkable. A small orthopedic anchor is superimposed at the left humeral head. IMPRESSION: No acute cardiopulmonary findings. *Reading Radiologist: Aj Alarcon on 03/13/2021 at 2:23 PM Sandi Blancas PA-C DIAGNOSTIC IMAGIN G ORDERABLES * INFLUENZA A+B - POINT OF CARE (AMB) (03/13/2021 2:04 PM CONFIGURATION MANAGEMENT MANAGER) Influenza A Antigen Rapid Negative Negative [facility] Influenza B Antigen Rapid Negative Negative [facility] Influenza Internal Control pos NEGATIVE - POSITIVE [facility] Influenza Lot Number [id number] [facility] Influenza Expiration Date [id number] [facility] Other NASOPHARYNGEAL SWAB / Unknown 03/13/2021 2:04 PM CONFIGURATION MANAGEMENT MANAGER Sandi Blancas PA-C LAB - POINT OF CA RE ORDERABLES [facility]UL[facility] [address] [phone] * SARS-COV-2 (COVID-19) AG (AMB) POCT (03/13/2021 2:03 PM CONFIGURATION MANAGEMENT MANAGER) SARS-CoV-2 Ag Negative Negative [facility] Lot # [id number] PAULINA GIBBS Expiration Date [id number] [facility] Instrument Serial Number [id number] [facility] COVID Internal Control Acceptable Acceptable [facility] Microbiology SPECIMEN FROM NASAL FOSSAE / Unknown 03/13/2021 2:03 PM CONFIGURATION MANAGEMENT MANAGER Sandi Blancas PA-C LAB - POINT OF CA RE ORDERABLES [facility]UL[facility] GIBBS [address] [phone] * SARS-COV-2 PCR 2 DAY TAT (03/13/2021 1:40 PM CONFIGURATION MANAGEMENT MANAGER) SARS-CoV-2 PCR 2 DAY TAT Performed [facility] INSURANCE BILL 03/13/2021 1:40 PM CONFIGURATION MANAGEMENT MANAGER 03/13/2021 Narrative Resulting Agency Comment [facility] performed [facility]: [facility] [address] [facility] [phone] Sandi Blancas PA-C LAB - MICROBIOLOG Y ORDERABLES Performing Organization Address City/[facility]/ZIP Co de Phone Number [facility] INSURANCE BILL [address] [place] [address] * COVID-19 SARS-COV-2 PCR QUAL [facility] (03/13/2021 1:40 PM CONFIGURATION MANAGEMENT MANAGER) SARS-CoV-2 CONOR Not Detected Not Detected [facility] INSURANCE BILL Comment: This nucleic acid amplification test was developed and its performance characteristics determined by [employer]. Nucleic acid amplification tests include RT-PCR and TMA. This test has not been FDA cleared or approved. This test has been authorized by FDA under an Emergency Use Authorization (EUA). This test is only authorized for the duration of time the declaration that circumstances exist justifying the authorization of the emergency use of in vitro diagnostic tests for detection of SARS-CoV-2 virus and/or diagnosis of COVID-19 infection under section 564(b)(1) of the Act, 21 U.S.C. 360bbb-3(b) (1), unless the authorization is terminated or revoked sooner. When diagnostic testing is negative, the possibility of a false negative result should be considered in the context of a patient's recent exposures and the presence of clinical signs and symptoms consistent with COVID-19. An individual without symptoms of COVID-19 and who is not shedding SARS-CoV-2 virus would expect to have a negative (not detected) result in this assay. Microbiology SPECIMEN FROM NASOPHARYNGEAL STRUCTURE / Unknown 03/13/2021 1:40 PM CONFIGURATION MANAGEMENT MANAGER 03/13/2021 Narrative Resulting Agency Comment Lab Testing performed at: [email or web address] [address] [phone] Sandi Blancas PA-C LAB - MICROBIOLOG Y ORDERABLES Performing Organization Address [facility] Co de Phone Number [employer] INSURANCE BILL [address] [place] [address] * EYE EXAM (01/01/2021) Anatomical Region Laterality Modality Other 01/01/2021 Narrative 01/01/2021 Ordered by an unspecified provider. Scanned Document SCANNING ONLY * URIC ACID BLOOD (09/26/2020 11:03 AM CDT) Only the most recent of3 resultswithin the time period is included. Uric Acid 5.8 2.6 - 6.0 mg/dL [facility] Blood BLOOD SPECIMEN / Unknown 09/26/2020 11:03 AM CDT 09/26/2020 Narrative Resulting Agency Comment Lab Testing performed at: [facility] [place] [address] Dorothy AUGUSTE [phone] Isaias Pino MD LAB - CHEMISTRY ORDDesmond NASH Performing Organization Address [facility]/ZIP Co de Phone Number [employer] INSURANCE BILL [address] [place] [address] * MAMMO BILAT SCREENING (02/09/2020 12:33 PM CONFIGURATION MANAGEMENT MANAGER) Only the most recent of7 resultswithin the time period is included. Anatomical Region Laterality Modality Breast Bilateral Mammography 02/09/2020 12:5 5 PM CONFIGURATION MANAGEMENT MANAGER Narrative 02/09/2020 1:30 PM CONFIGURATION MANAGEMENT MANAGER DIGITAL BILATERAL SCREENING MAMMOGRAMS WITH CAD AND 3-D TOMOSYNTHESIS DATE: 02/09/2020 12:17 PM. PREVIOUS EXAM DATE: 01/23/2019, 11/15/2017. INDICATION: Screening. TECHNIQUE: Bilateral craniocaudad (CC) and mediolateral oblique (MLO) views. Images were interpreted with the aid of CAD. 3-D tomosynthesis images were performed. TECHNOLOGIST: Viviana Kwon, RT (R)(M)(BS) TISSUE DENSITY: Predominantly fatty. FINDINGS: There is no new or discrete finding evident. No mass nor microcalcification is seen. Subcentimeter subareolar nodular densities are stable. ASSESSMENT: BI-RADS 1 - Negative. RECOMMENDATIONS: Continued annual screening mammography. The above findings should be correlated with physical examination. A relatively nonspecific study should not preclude additional evaluation if suspicious findings are present clinically. An [employer]. [facility] utilizes [employer] as a reminder system to notify patients of their next recommended mammograms. Edited by Latesha Genao on 02/09/2020 1:05 PM *Reading Radiologist: Fransico Merino on 02/09/2020 at 1:30 PM Isaias Pino MD MAMMO ORDERABLES * VAS LEFT VENOUS DUPLEX LE (11/24/2018 1:50 PM CDT) Anatomical Region Laterality Modality Lower Extremity, Upper Extremity Ultrasound 11/24/2018 1:34 PM CDT Narrative Procedure Note Tello Patiño MD - 11/24/2018 [facility] [place] [address], [address] [place] [address] Lower Extremity Venous Ultrasound Report Pat.Name: NATALIA PRESTON.ID: [id number] St.Date: 11/24/2018 Refer.MD: Isaias Pino Exam Time: 1:34:00 PM Study Type:LE Venous Age: 5 1945,73Y Sex: FEMALE Sonogrphr: Edd Griffin RVT Pat. Stat.:Outpatient ICD - 9: I82.492 Acute embolism and thrombosis of other specified deep vein of left lower extremity CPT - 4: 12761 Procedures: Lower Extremity Venous - Left Race: 2 Visit ID: [id number] ++++++++++++++++++++++++++++++++++++ SUMMARY: ++++++++++++++++++++++++++++++++++++ There is no evidence of an acute deep or superficial venous thrombosis in the left lower extremity. ++++++++++++++++++++++++++++++++++++ FINDINGS: ++++++++++++++++++++++++++++++++++++ Procedure: Venous duplex imaging of the left lower extremity was performed using color flow and spectral Doppler analysis. The contralateral common femoral vein was also examined. Study Quality: This study is of adequate technical quality. Lt Leg: All vessels seen appear patent and compressible. There was spontaneous and phasic flow seen in all major veins of the left lower extremity. Appropriate augmentation with distal compression. No evidence of reflux with proximal compression. Signed 11/24/2018 02:30 PM Tello Patiño MD Isaias Pino MD VASCULAR LAB ORDERAB LES * XR FOOT LEFT 3VW OR MORE (11/24/2018 12:37 PM CDT) Anatomical Region Laterality Modality Ankle / Foot Radiographic Nataly ging 11/24/2018 12:4 0 PM CDT Narrative 11/24/2018 12:41 PM CDT Left Foot 3 Views INDICATION: Left foot pain FINDINGS: No acute fracture or dislocation. Soft tissue swelling is present. Reading Radiologist: Shelia Noe MD on 11/24/2018 at 12:41 PM Procedure Note Shelia Noe MD - 11/24/2018 Left Foot 3 Views INDICATION: Left foot pain FINDINGS: No acute fracture or dislocation. Soft tissue swelling is present. Reading Radiologist: Shelia Noe MD on 11/24/2018 at 12:41 PM Isaias Pino MD DIAGNOSTIC IMAGING O RDERABLES * COMPLETE PFT W/WO BRONCHODILATOR (05/04/2018 2:14 PM CDT) Narrative Sultana Muro - 05/04/2018 2:14 PM CDT Isaias Pino MD 05/04/2018 2:14 PM Spirometry Results. 05/04/2018 Measurement: Predicted Pre-Bronchodilator Post-Bronchodilator % Change Actual % Predict Actual % Pred. FVC 2.23L *81% 2.23L 81% 0% FEV1 1.94L 92% 1.93L 92% 0% CJF90-38% 2.86L 148% 2.78L 144% -3% NO COPD! No change after bronchodilator. Procedure Note Isaias Pino MD - 05/04/2018 2:13 PM CDT Spirometry Results. 05/04/2018 Measurement: Predicted Pre-Bronchodilator Post-Bronchodilator % Change Actual % Predict Actual % Pred. FVC 2.23L *81% 2.23L 81% 0% FEV1 1.94L 92% 1.93L 92% 0% UHF16-24% 2.86L 148% 2.78L 144% -3% NO COPD! No change after bronchodilator. Isaais Pino MD RESPIRATORY THERAPY ORDERABLES * HM DIABETES EYE EXAM (04/08/2017) Only the most recent of2 resultswithin the time period is included. Isaias Pino MD HEALTH MAINTENANCE * XR LUMBAR SPINE 2 OR 3 VW (03/08/2017) Anatomical Region Laterality Modality Spine Other Isaias Pino MD DIAGNOSTIC IMAGING O RDERABLES * CYTOLOGY NON-CORPORATE OPERATIONS COMPLIANCE MANAGER PANEL (STL) (02/28/2015 11:50 AM CONFIGURATION MANAGEMENT MANAGER) Case Report Cytology Non Extractions Technician Report Case: [id number] Authorizing Provider: Lex Odom MD Collected: 02/28/2015 11:50 AM Ordering Location: [facility] Received: 02/28/2015 01:55 PM Pathologist: Gadiel Chung MD Specimen: Pelvic Washings 03/05/2015 11:57 AM CONFIGURATION MANAGEMENT MANAGER [facility] Final Diagnosis 1. Left ureteral washings, cell block and Thin layer preparations: -- Rare groups of atypical cells AB/kandace 03/05/2015 11:57 AM [facility] Microscopic Description The cell block and Thin layer preparations of the left ureteral washings show blood with intermixed benign appearing urothelial and some inflammatory cells. There are rare groups of cells exhibiting some cytologic atypia but no convincingly cytologically malignant cells are seen. However a low grade malignancy would be difficult to distinguish from benign, reactive epithelium in this type of preparation. Clinical correlation is recommended. /kandace 03/05/2015 11:57 AM [facility] Disclaimer All histochemical and/or immunohistochemical results are interpreted with controls that demonstrate appropriate staining reactions before reporting results. Note on use of immunocytochemistry reagents: This test was developed and its performance characteristic determined by [facility], Department of Laboratory Medicine. It has not been cleared or approved by the U.S. Food and Drug Administration (FDA). The FDA has determined that such clearance or approval is not necessary. The test is used for clinical purpose. It should not be regarded as investigational or for research. This laboratory is certified to perform high complexity testing. 03/05/2015 11:57 AM [facility] Pathology/Cytolo gy SPECIMEN OBTAINED BY PERITONEAL LAVAGE / Unknown 02/28/2015 11:50 AM CONFIGURATION MANAGEMENT MANAGER 02/28/2015 1:55 PM CONFIGURATION MANAGEMENT MANAGER Lex Odom MD LAB - PATHOLOGY/CYTO LOGY ORDERABLES [facility] [address] [place] [address] * CT CHEST WITH CONTRAST (02/06/2015 10:00 AM CONFIGURATION MANAGEMENT MANAGER) Anatomical Region Laterality Modality Chest Computed Tomogra phy 02/06/2015 1:26 PM CONFIGURATION MANAGEMENT MANAGER Impressions 02/06/2015 2:22 PM CONFIGURATION MANAGEMENT MANAGER THREE SMALL NONCALCIFIED PULMONARY NODULES MEASURING 3.5 mm IN MAXIMUM DIAMETER HAVE DEVELOPED SINCE THE PRIOR EXAMINATION OF 2009. CT FOLLOWUP IN 12 MONTHS IS RECOMMENDED TO ENSURE STABILITY OF THESE FINDINGS. UNCHANGED 4 mm LEFT LOWER LOBE NODULE CONSISTENT WITH A BENIGN ETIOLOGY. LEFT HYDROURETERONEPHROSIS. THE ETIOLOGY FOR THIS FINDING IS UNCLEAR. CT UROGRAM MAY PROVIDE ADDITIONAL CLARIFICATION. SMALL HYPERVASCULAR FOCUS WITHIN THE LIVER. CONSIDERATIONS INCLUDE VASCULAR SHUNTING VERSUS FOCAL NODULAR HYPERPLASIA VERSUS A FLASH FILLING HEMANGIOMA. Edited by Lupis Millard on 02/06/2015 1:57 PM Narrative 02/06/2015 2:22 [address] MANA[address] THORAX WITH INTRAVENOUS CONTRAST CLINICAL INDICATION: Pulmonary nodule. Tobacco use. Skin cancer and tongue mass. COMPARISON: CT thorax 05/20/2009 TECHNIQUE: Axial CT imaging of the thorax from the lung apices to the upper abdomen was performed following 72 mL of Omnipaque 350 intravenous contrast administration. Coronal and sagittal multiplanar reformats were created. FINDINGS: There is a stable unchanged 4 mm noncalcified nodule within the left lower lobe on image 57. There is a new 3.5 mm subpleural nodule within the right lower lobe on image 81. There is a new tiny 1 mm subpleural nodule within the posterior right lower lobe on image 100. There is a new small 3 mm noncalcified nodule within the lingula on image 71. There are no confluent pulmonary infiltrates. There is no pneumothorax. There is no pleural effusion. The heart size is normal. There is no mediastinal or hilar lymphadenopathy. There is no pericardial effusion. There are no acute appearing bony abnormalities. Images of the upper abdomen demonstrate left hydroureteronephrosis. There is a 10 mm hypervascular focus within the dome of the liver. Procedure Note Tony Pisano MD - 02/06/2015 CT THORAX WITH INTRAVENOUS CONTRAST CLINICAL INDICATION: Pulmonary nodule. Tobacco use. Skin cancer and tongue mass. COMPARISON: CT thorax 05/20/2009 TECHNIQUE: Axial CT imaging of the thorax from the lung apices to the upper abdomen was performed following 72 mL of Omnipaque 350 intravenous contrast administration. Coronal and sagittal multiplanar reformats were created. FINDINGS: There is a stable unchanged 4 mm noncalcified nodule within the left lower lobe on image 57. There is a new 3.5 mm subpleural nodule within the right lower lobe on image 81. There is a new tiny 1 mm subpleural nodule within the posterior right lower lobe on image 100. There is a new small 3 mm noncalcified nodule within the lingula on image 71. There are no confluent pulmonary infiltrates. There is no pneumothorax. There is no pleural effusion. The heart size is normal. There is no mediastinal or hilar lymphadenopathy. There is no pericardial effusion. There are no acute appearing bony abnormalities. Images of the upper abdomen demonstrate left hydroureteronephrosis. There is a 10 mm hypervascular focus within the dome of the liver. IMPRESSION THREE SMALL NONCALCIFIED PULMONARY NODULES MEASURING 3.5 mm IN MAXIMUM DIAMETER HAVE DEVELOPED SINCE THE PRIOR EXAMINATION OF 2009. CT FOLLOWUP IN 12 MONTHS IS RECOMMENDED TO ENSURE STABILITY OF THESE FINDINGS. UNCHANGED 4 mm LEFT LOWER LOBE NODULE CONSISTENT WITH A BENIGN ETIOLOGY. LEFT HYDROURETERONEPHROSIS. THE ETIOLOGY FOR THIS FINDING IS UNCLEAR. CT UROGRAM MAY PROVIDE ADDITIONAL CLARIFICATION. SMALL HYPERVASCULAR FOCUS WITHIN THE LIVER. CONSIDERATIONS INCLUDE VASCULAR SHUNTING VERSUS FOCAL NODULAR HYPERPLASIA VERSUS A FLASH FILLING HEMANGIOMA. Edited by Lupis Millard on 02/06/2015 1:[address] ORDERABLES * HEPATITIS C ANTIBODY (01/30/2015 12:19 PM CONFIGURATION MANAGEMENT MANAGER) Pathologist [facility] Hepatitis C Antibody Non Reactive Non Reactive [facility] INSURANCE BILL Comment: Non Reactive - Antibodies to Hepatitis C virus (HCV) were no t detected, result does not exclude early acute HCV infection. Blood specimen (specimen) BLOOD SPECIMEN / Unknown 01/30/2015 12:19 PM CONFIGURATION MANAGEMENT MANAGER 01/30/2015 7:00 PM CONFIGURATION MANAGEMENT MANAGER Narrative Resulting Agency Comment [facility] [address] [facility] [phone] Isaias Pino MD LAB - CHEMISTRY CRISTOBAL NASH [facility] INSURANCE BILL * SKIN TEST PPD - POINT OF CARE (10/01/2014) PPD Negative MISCELLANEOUS SAMPLE S / Unknown 10/01/2014 Isaias Pino MD LAB - POINT OF CARE ORDERABLES * (ABNORMAL) LIPID PROFILE W LDL/HDL (PO REF LAB) (02/28/2014 11:57 AM CONFIGURATION MANAGEMENT MANAGER) Only the most recent of15 resultswithin the time period is included. Cholesterol 191 100 - 199 mg/dL [facility] INSURANCE BILL Triglycerides 207(H) 0 - 149 mg/dL [facility] INSURANCE BILL HDL Cholesterol 37(L) >39 mg/dL [facility] INSURANCE BILL Comment: According to ATP-III Guidelines, HDL-C >59 mg/dL is considered a negative risk factor for CHD. VLDL Calculated 41(H) 5 - 40 mg/dL [facility] INSURANCE BILL LDL Calculated 113(H) 0 - 99 mg/dL [facility] INSURANCE BILL Comment NOT NEEDED [facility] INSURANCE BILL Comment:Ancillary determined the test is not needed LDL/HDL Ratio 3.1 0.0 - 3.2 ratio units [facility] INSURANCE BILL Comment: LDL/HDL Ratio Men Women 1/2 Avg.Risk 1.0 1.5 Avg.Risk 3.6 3.2 2X Avg.Risk 6.2 5.0 3X Avg.Risk 8.0 6.1 Blood specimen (specimen) BLOOD SPECIMEN / Unknown 02/28/2014 11:57 AM CONFIGURATION MANAGEMENT MANAGER 02/28/2014 6:37 PM CONFIGURATION MANAGEMENT MANAGER Narrative Resulting Agency Comment [facility] [address] [id number] Isaias Pino MD LAB - CHEMISTRY CRISTOBAL [facility] Organization Address City/State/ZIP Co de Phone Number [facility] INSURANCE BILL * DEXA BONE DENSITY RHEUMAT READ (07/04/2013 11:19 AM CDT) Anatomical Region Laterality Modality Mammography Narrative 07/06/2013 2:02 PM CDT Lorne Dozier MD 07/06/2013 2:02 PM [facility] [employer] DXA of spine and Hips Natalia Preston is a 68 y.o. female : 1945 [...] Read by: Lorne Dozier MD Certified Clinical Cpa Tax Office: [phone] Call Directly: [phone] [facility] Address: [facility] Procedure Note Lorne Dozier MD - 07/06/2013 2:01 PM CDT [facility] [employer] [place] DXA of spine and Hips Natalia Preston is a 68 y.o. female : 1945 [...] Read by: Lorne Dozier MD Certified Clinical Cpa Tax Office: [phone] Call Directly: [phone] [facility] Address: [facility] Isaias Pino MD DEXA ORDERABLES * (ABNORMAL) T3 TOTAL+FREE PANEL (PO REF LAB) (05/31/2013 11:17 AM CDT) T3 Total 177 71 - 180 ng/dL [facility] INSURANCE BILL T3 Free 4.6(H) 2.0 - 4.4 pg/mL [facility] INSURANCE BILL BLOOD SPECIMEN / Unknown 05/31/2013 11:17 AM CDT 05/31/2013 1:03 PM CDT Narrative [facility] INSURANCE BILL - 06/01/2013 8:11 PM CDT A courtesy copy of this report has been sent to [phone]. Resulting Agency Comment [facility] [address] [phone] Isaias Pino MD LAB - CHEMISTRY CRISTOBAL NASH [facility] INSURANCE BILL * MAMMOGRAPHY ORDER (12/27/2012) Only the most recent of2 resultswithin the time period is included. Anatomical Region Laterality Modality Other Isaias Pino MD MAMMO ORDERABLES * NM THYROID UPTAKE AND SCAN (06/09/2012 1:42 PM CDT) Anatomical Region Laterality Modality Chest Nuclear Medicine 06/10/2012 9:01 AM CDT Impressions 06/10/2012 10:21 AM CDT Both the 6-hour and 24-hour radioiodine uptake values are elevated consistent with the clinical diagnosis of hyperthyroidism. The upper half of the right lobe of the thyroid is relatively hyperfunctioning but I cannot identify a measurable nodule. Narrative 06/10/2012 10:21 AM CDT NUCLEAR MEDICINE THYROID SCAN AND UPTAKE INDICATION: Hyperthyroidism. Enlarged thyroid. Patient complains of nervousness, heart palpitations, fatigue and tremors. TECHNIQUE: The patient received 291 microcuries of I-123 by mouth. Uptake determinations were performed at 6 and 24 hours. Images of the neck were performed in the AP, ST LUCIAN, and BORJA projections. FINDINGS: The 6 hour uptake is 49.4%. The normal range is 6% to 20%. The 24 hour uptake is 63.5%. The normal range is 10% to 30%. The images of the thyroid gland show relative enlargement of the right lobe of the thyroid. A hyperfunctioning region was present in the mid to upper pole of the right lobe. Procedure Note Tal Tobin MD - 06/10/2012 NUCLEAR MEDICINE THYROID SCAN AND UPTAKE INDICATION: Hyperthyroidism. Enlarged thyroid. Patient complains of nervousness, heart palpitations, fatigue and tremors. TECHNIQUE: The patient received 291 microcuries of I-123 by mouth. Uptake determinations were performed at 6 and 24 hours. Images of the neck were performed in the AP, ST LUCIAN, and BORJA projections. FINDINGS: The 6 hour uptake is 49.4%. The normal range is 6% to 20%. The 24 hour uptake is 63.5%. The normal range is 10% to 30%. The images of the thyroid gland show relative enlargement of the right lobe of the thyroid. A hyperfunctioning region was present in the mid to upper pole of the right lobe. IMPRESSION Both the 6-hour and 24-hour radioiodine uptake values are elevated consistent with the clinical diagnosis of hyperthyroidism. The upper half of the right lobe of the thyroid is relatively hyperfunctioning but I cannot identify a measurable nodule. Kia Guevara MD NM ORDERABLES * (ABNORMAL) THYROID AB PANEL (TPO AB+THYROGLOB AB) (06/07/2012 10:40 AM CDT) Thyroid Peroxidase TPO Antibody 578(H) 0 - 34 IU/mL [facility] INSURANCE BILL Antithyroglobulin Antibody >3000(H) 0 - 40 IU/mL [facility] INSURANCE BILL Comment:[employer] ([facility]PC) ICMA M ethodology Blood specimen (specimen) BLOOD SPECIMEN / Unknown 06/07/2012 10:40 AM CDT 06/07/2012 1:00 PM CDT Narrative Resulting Agency Comment [facility] [address] [phone] Kia Guevara MD LAB - CHEMISTRY ORDERABLES [facility] INSURANCE BILL * (ABNORMAL) GENERAL HEALTH PANEL (03/17/2012 10:41 AM CONFIGURATION MANAGEMENT MANAGER) Glucose 84 65 - 99 mg/dL [facility] INSURANCE BILL BUN 10 8 - 27 mg/dL [facility] INSURANCE BILL Creatinine 0.96 0.57 - 1.00 mg/dL [facility] INSURANCE BILL eGFR by MDRD 63 >59 mL/min/1. 73 [facility] INSURANCE BILL eGFR by MDRD 72 >59 mL/min/1. 73 [facility] INSURANCE BILL BUN/Creatinine Ratio 10(L) 11 - 26 [facility] INSURANCE BILL Sodium 143 134 - 144 mmol/L [facility] INSURANCE BILL Potassium 3.9 3.5 - 5.2 mmol/L [facility] INSURANCE BILL Chloride 102 97 - 108 mmol/L [facility] INSURANCE BILL CO2 26 20 - 32 mmol/L [facility] INSURANCE BILL Calcium 9.4 8.6 - 10.2 mg/dL [facility] INSURANCE BILL Protein Total 7.5 6.0 - 8.5 g/dL [facility] INSURANCE BILL Albumin 4.4 3.6 - 4.8 g/dL [facility] INSURANCE BILL Globulin Total 3.1 1.5 - 4.5 g/dL [facility] INSURANCE BILL Albumin/Globulin Ratio 1.4 1.1 - 2.5 [facility] INSURANCE BILL Bilirubin Total 0.4 0.0 - 1.2 mg/dL [facility] INSURANCE BILL Alkaline Phosphatase 137 25 - 165 IU/L [facility] INSURANCE BILL AST 18 0 - 40 IU/L [facility] INSURANCE BILL ALT 14 0 - 32 IU/L [facility] INSURANCE BILL TSH 31.260(H) 0.450 - 4.500 uIU/mL [facility] INSURANCE BILL WBC 8.8 4.0 - 10.5 x10E3/uL [facility] INSURANCE BILL RBC 4.76 3.77 - 5.28 x10E6/uL [facility] INSURANCE BILL Hemoglobin 14.2 11.1 - 15.9 g/dL [facility] INSURANCE BILL Hematocrit 42.5 34.0 - 46.6 % [facility] INSURANCE BILL MCV 89 79 - 97 fL [facility] INSURANCE BILL MCH 29.8 26.6 - 33.0 pg [facility] INSURANCE BILL MCHC 33.4 31.5 - 35.7 g/dL [facility] INSURANCE BILL RDW 14.3 12.3 - 15.4 % [facility] INSURANCE BILL Platelet Count 283 140 - 415 x10E3/uL [facility] INSURANCE BILL Granulocytes % 45 40 - 74 % [facility] INSURANCE BILL Lymphocytes % 39 14 - 46 % [facility] INSURANCE BILL Monocytes % 11 4 - 13 % [facility] INSURANCE BILL Eosinophils % 4 0 - 7 % [facility] INSURANCE BILL Basophils % 1 0 - 3 % [facility] INSURANCE BILL Immature Cells NOT NEEDED [facility] INSURANCE BILL Comment:Ancillary determined the test is not needed Granulocytes Absolute 4.1 1.8 - 7.8 x10E3/uL [facility] INSURANCE BILL Lymphocytes Absolute 3.4 0.7 - 4.5 x10E3/uL [facility] INSURANCE BILL Monocytes Absolute 0.9 0.1 - 1.0 x10E3/uL [facility] INSURANCE BILL Eosinophils Absolute 0.3 0.0 - 0.4 x10E3/uL [facility] INSURANCE BILL Basophils Absolute 0.0 0.0 - 0.2 x10E3/uL [facility] INSURANCE BILL Immature Granulocytes 0 0 - 2 % [facility] INSURANCE BILL Immature Granulocytes Absolute 0.0 0.0 - 0.1 x10E3/uL [facility] INSURANCE BILL nRBC NOT NEEDED [facility] INSURANCE BILL Comment:Ancillary determined the test is not needed Comment Hematology NOT NEEDED [facility] INSURANCE BILL Comment:Ancillary determined the test is not needed BLOOD SPECIMEN / Unknown 03/17/2012 10:41 AM CONFIGURATION MANAGEMENT MANAGER 03/17/2012 2:09 PM CONFIGURATION MANAGEMENT MANAGER Narrative Resulting Agency Comment [facility] [address] [facility] [id number] Isaias Pino MD LAB - CHEMISTRY CRISTOBAL [place] Organization Address City/State/ZIP Co de Phone Number [facility] INSURANCE BILL * US DOPPLER CAROTID COMPLETE (12/24/2010 2:25 PM CDT) Anatomical Region Laterality Modality Head Ultrasound 12/24/2010 3:21 PM CDT Impressions 12/24/2010 3:36 PM CDT Normal bilateral carotid and vertebral artery ultrasound with Doppler. Narrative 12/24/2010 3:36 PM CDT ULTRASOUND DOPPLER CAROTID COMPLETE INDICATION: Left-sided bruit. Hypertension. Hyperlipidemia. Diabetic. FINDINGS: On the right, no demonstrable plaque is seen. There is no acceleration of blood flow or turbulence. The maximum systolic velocity within the distal common carotid artery is 95.3 cm/sec and within the internal carotid arteries 122.6 cm/sec. The IC:CC ratio is 1.3. There is antegrade flow in the vertebral artery. On the left, no demonstrable plaque is demonstrated. There is no acceleration of blood flow or turbulence. The maximum systolic velocity within the distal common carotid artery is 81.1 cm/sec and within the internal carotid artery 74.7 cm/sec. The IC:CC ratio is 0.9. There is antegrade flow in the vertebral artery. Procedure Note Angelo Richmond MD - 12/24/2010 ULTRASOUND DOPPLER CAROTID COMPLETE INDICATION: Left-sided bruit. Hypertension. Hyperlipidemia. Diabetic. FINDINGS: On the right, no demonstrable plaque is seen. There is no acceleration of blood flow or turbulence. The maximum systolic velocity within the distal common carotid artery is 95.3 cm/sec and within the internal carotid arteries 122.6 cm/sec. The IC:CC ratio is 1.3. There is antegrade flow in the vertebral artery. On the left, no demonstrable plaque is demonstrated. There is no acceleration of blood flow or turbulence. The maximum systolic velocity within the distal common carotid artery is 81.1 cm/sec and within the internal carotid artery 74.7 cm/sec. The IC:CC ratio is 0.9. There is antegrade flow in the vertebral artery. IMPRESSION Normal bilateral carotid and vertebral artery ultrasound with Doppler. Isaias Pino MD US ORDERABLES * XR RIBS UNILATERAL 2 VW LEFT (05/16/2009 10:43 AM CDT) Isaias Pino MD DIAGNOSTIC IMAGING O RDERABLES * CULTURE ANAEROBE+AEROBE (PO REF LAB) (03/11/2009 3:34 PM CONFIGURATION MANAGEMENT MANAGER) Anaerobic Culture Final report [facility] INSURANCE BILL Result 1 [facility] INSURANCE BILL Comment:No anaerobic growth in 72 hours. Aerobic Culture Final report [facility] INSURANCE BILL Result 1 Mixed skin karolina [facility] INSURANCE BILL Comment:Moderate growth LESION OF BREAST / Unknown 03/11/2009 3:34 PM CONFIGURATION MANAGEMENT MANAGER 03/11/2009 9:40 PM CONFIGURATION MANAGEMENT MANAGER Narrative Resulting Agency Comment [facility] [address] [phone] Erlinda Kim APRN-CARA LAB - MICROBIOLOG Y ORDERABLES [facility] INSURANCE BILL * (ABNORMAL) HEMOGLOBIN A1C W MBG EST (PO REF LAB) (01/15/2009 12:56 PM CONFIGURATION MANAGEMENT MANAGER) Only the most recent of4 resultswithin the time period is included. Hemoglobin A1c 7.1(H) % of total Hgb [facility] Comment: NON-DIABETIC: <6.0% Mean Glucose 175 mg/dL (calc) [facility] Comment: Test Performed at: [facility] [address] [place] [address] CONTRERAS ALLEN DO,MPH 01/15/2009 12:5 6 PM CONFIGURATION MANAGEMENT MANAGER 01/16/2009 4:08 AM CONFIGURATION MANAGEMENT MANAGER Isaias Pino MD LAB - CHEMISTRY [facility] [employer] [address] [place] [address] * MRIO L-SPINE W/WO CONTRAST (02/09/2008 2:00 PM CONFIGURATION MANAGEMENT MANAGER) Anatomical Region Laterality Modality Other 02/09/2008 2:00 PM CONFIGURATION MANAGEMENT MANAGER Narrative 02/09/2008 5:04 PM CONFIGURATION MANAGEMENT MANAGER INDICATION- Low back pain. TECHNIQUE- Sagittal T1 and T2, axial T1 and T2-weighted images of the lumbar spine are obtained on the low field strength, open MRI unit. Additional axial and sagittal postcontrast images are obtained. The patient received 20 ml gadolinium Omniscan IV contrast. COMPARISON- Prior study 12/19/2007. FINDINGS- There is normal alignment. The conus medullaris terminates at the L1 level and appears unremarkable. Marrow signal is unchanged with the lesion at T2 which is unchanged. The following levels are considered directly in the axial plane. At L5/S1, there has been surgical intervention through the right lamina. There appears to be rightward disc protrusion narrowing the central canal at this level without evidence of enhancement. Similar findings are noted at L4-L5 with moderate deformity of the thecal sac secondary to a rightward disc protrusion. There is also significant bilateral neural foraminal narrowing at L5-S1 and right neural foraminal narrowing at L4-L5 At L3-L4, there are similar findings of flattening and moderate narrowing of the thecal sac and neural foramina secondary to the broad-based disc bulge lateralizing slightly to the right and facet arthropathy. At L2-L3, there is no critical central canal narrowing. IMPRESSION- Findings appear to be similar to the prior study with moderate central canal narrowing noted at L3-L4, moderate to severe deformity at L4-L5, and moderate central canal narrowing at L5/S1. There has been posterior decompression on the right at L5 and L4. Read By- FRANSICO MERINO M.D. Released By- FRANSICO MERINO M.D. Released Date Time- 02/09/08 1704 Blood Coordinator- TODD MURALI LIRA DANIEL J REF- SCODARY, DANIEL J CON- PCP- ALVAREZ, JUAN [facility]- Procedure Note Fransico Merino - 02/09/2008 INDICATION- Low back pain. TECHNIQUE- Sagittal T1 and T2, axial T1 and T2-weighted images of the lumbar spine are obtained on the low field strength, open MRI unit. Additional axial and sagittal postcontrast images are obtained. The patient received 20 ml gadolinium Omniscan IV contrast. COMPARISON- Prior study 12/19/2007. FINDINGS- There is normal alignment. The conus medullaris terminates at the L1 level and appears unremarkable. Marrow signal is unchanged with the lesion at T2 which is unchanged. The following levels are considered directly in the axial plane. At L5/S1, there has been surgical intervention through the right lamina. There appears to be rightward disc protrusion narrowing the central canal at this level without evidence of enhancement. Similar findings are noted at L4-L5 with moderate deformity of the thecal sac secondary to a rightward disc protrusion. There is also significant bilateral neural foraminal narrowing at L5-S1 and right neural foraminal narrowing at L4-L5 At L3-L4, there are similar findings of flattening and moderate narrowing of the thecal sac and neural foramina secondary to the broad-based disc bulge lateralizing slightly to the right and facet arthropathy. At L2-L3, there is no critical central canal narrowing. IMPRESSION- Findings appear to be similar to the prior study with moderate central canal narrowing noted at L3-L4, moderate to severe deformity at L4-L5, and moderate central canal narrowing at L5/S1. There has been posterior decompression on the right at L5 and L4. Read By- FRANSICO MERINO M.D. Released By- FRANSICO MERINO M.D. Released Date Time- 02/09/08 1704 Blood Coordinator- TODD MURALI LIRA DANIEL J REF- SCODARY, DANIEL J CON- ALEXANDRA- ISAIAS PINO- Murali Pina MD MR ORDERABLES * HEPATIC FUNCTION PANEL (02/06/2008 1:46 PM CONFIGURATION MANAGEMENT MANAGER) Protein Total 6.9 6.2 - 8.3 g/dL [facility] Albumin 3.9 3.6 - 5.1 g/dL [facility] Globulin Total 3.0 2.2 - 3.9 g/dL (calc) [facility] Albumin/Globulin Ratio 1.3 1.0 - 2.1 (calc) [facility] Bilirubin Total 0.5 0.2 - 1.2 mg/dL [facility] Bilirubin Direct 0.1 < OR = 0.2 mg/dL [facility] Bilirubin Indirect 0.4 0.2 - 1.2 mg/dL (calc) [facility] Alkaline Phosphatase 89 33 - 130 U/L [facility] AST 16 10 - 35 U/L [facility] ALT 29 6 - 40 U/L [facility] Comment: Test Performed at: [facility] [address] [place] [address] CONTRERAS ROE MD 02/06/2008 1:46 PM CONFIGURATION MANAGEMENT MANAGER 02/07/2008 1:37 AM CONFIGURATION MANAGEMENT MANAGER Isaias Pino MD LAB - CHEMISTRY CRISTOBAL [facility] Organization Address City/State/ZIP Co de Phone Number [facility] [address] [place] [address] * XR SPINE LUMBAR SINGLE VIEW (01/20/2008 8:30 AM CONFIGURATION MANAGEMENT MANAGER) Anatomical Region Laterality Modality Spine Other 01/20/2008 8:30 AM CONFIGURATION MANAGEMENT MANAGER Narrative 01/20/2008 10:59 AM CONFIGURATION MANAGEMENT MANAGER Examination- Crosstable lateral film of the lumbar spine. Indication- Back pain. Surgery for placement. Comparison- None. Findings- A single crosstable lateral film of the lumbar spine is available. A metal pointer has been introduced. The tip of the pointer is located over the midportion of the L5-S1 disc space. This method of enumeration assumes that the patient has five lumbar type vertebrae. Read By- TAL TOBIN M.D. Released By- TAL TOBIN M.D. Released Date Time- 01/20/08 1059 Blood Coordinator- O MURALI LIRA DANIEL J REF- CON- PCP- ALVAREZ, JUAN [facility]- Procedure Note Tal Tobin MD - 01/20/2008 Examination- Crosstable lateral film of the lumbar spine. Indication- Back pain. Surgery for placement. Comparison- None. Findings- A single crosstable lateral film of the lumbar spine is available. A metal pointer has been introduced. The tip of the pointer is located over the midportion of the L5-S1 disc space. This method of enumeration assumes that the patient has five lumbar type vertebrae. Read By- TAL TOBIN M.D. Released By- TAL TOBIN M.D. Released Date Time- 01/20/08 1059 Blood Coordinator- MEO MURALI LIRA DANIEL J REF- CON- PCP- ALVAREZ, JUAN [facility]- Murali Pina MD DIAGNOSTIC IMAG ING ORDERABLES * TYPE + SCREEN PANEL (01/16/2008 3:45 PM CONFIGURATION MANAGEMENT MANAGER) ABO Rh O Pos [facility] Antibody Screen Pos [facility] Antibody Identification No Clinical Significant Antibody [facility] BLOOD SPECIMEN / Unknown 01/16/2008 3:45 PM CONFIGURATION MANAGEMENT MANAGER Murali Pina MD LAB - BLOOD BAN K ORDERABLES [facility] Care Teams Set Up / Operator Relationship Specialty Start Date End Date Isaias Pino MD Retired PCP - Att[facility] 05/24/23 Kee [place] MD [address] [facility] [address] [place] [address] PCP - General Family Medicine 04/27/24 Maryse Smith, MARKETING SERVICES SPECIALIST-LAW RESEARCHER Nurse Practitioner Nurse Practitioner 06/17/15
--- OUTSIDE RECORDS SUMMARY | 2024-05-05 09:47 | XMS_ITS | Clinical Summary ---
Author Organization [facility] [place] Address [address] [place] [address] Phone Care Team Providers Care Fitness And Wellness Coordinator Name Role Phone Unavailable Primary Care Provider Unavailabl e Encounters Date Type Department Care Team Description [facility]/03[facility] [address] [place] [id number] Alondra Fraire, PAC from Last 3 Months Social History Tobacco Use Types Packs/Day Years Used Date Smoking Tobacco: Never Assessed Comments Unknown Sex and Gender Information Value Date Recorded Sex Assigned at Not on file Legal Sex Female 9:38 PM CDT Gender Identity Not on file Sexual Orientation Not on file Plan of Treatment Upcoming Encounters Date Type Department Care Team (Late st Contact Info) Description 05/19/2024 2:00 PM CDT Office Visit [facility] - Internal Medicine [facility] [address] [place] [address] Alondra Fraire, PAC [address] [place] [address] Health Maintenance Due Date Last Done Comments DEXA Bone Density 1945 Hepatitis C Virus (HCV) Screening 1945 TdaP Immunization 1945 Zoster Immunization (1 of 2) 06/25/1997 Pneumococcal Immunization (50+ years) (2 of 2 - PPSV23) 11/24/2016 11/25/2015 Respiratory Syncytial Virus (RSV) Immunization (Adult) (1 - 1-dose 75+ series) 06/25/2022 Influenza Immunization (#1) 2023 09/0 08/2022, 12/14/2021, 01/03/2021, Additional history exists SARS-COV-2 Immunization () 10/24/2023 12/27/2022, 02/13/2021, 05/12/2020, Additional history exists Hepatitis B Immunization Aged Out No longer eligible based on patient's age to complete this topic Meningococcal Immunization (ACWY) Aged Out No longer eligible based on patient's age to complete this topic Rotavirus Immunization Aged Out No lo nger eligible based on patient's age to complete this topic
[2024-05-05 11:34] LABS: Basophils Absolute Auto 0.1 K/mm3 (0.0-0.1); Basophils Percent Auto 0.7 % (0.2-1.2); Eosinophils Absolute Auto 0.6 K/mm3 (0-0.3); Eosinophils Percent Auto 4.8 % (0-4.4); Hematocrit 42.8 % (37.0-47.0); Hemoglobin 13.3 g/dL (12.0-15.0); Immature Granulocyte Absolute 0.06 K/mm3 (0.00-0.031); Immature Granulocyte Percent A 0.5 % (0-0.5); Lymphocytes Absolute Auto 3.55 K/mm3 (0.9-3.2); Lymphocytes Percent Auto 31.2 % (18.3-44.2); Mean Corpuscular HGB Conc 31.1 g/dl (32-36); Mean Corpuscular Hemoglobin 26.8 pg (26-34); Mean Corpuscular Volume 86.3 fl (80-100); Mean Platelet Volume 10.8 fl (7.4-10.4); Monocytes Absolute Auto 1.2 K/mm3 (0.1-0.6); Monocytes Percent Auto 10.3 % (2.6-8.5); Neutrophils Percent Auto 52.5 % (45.5-73.1); Platelet Count Result 278 k/mm3 (150-375); Red Blood Count 4.96 M/mm3 (4.2-5.4); Red Cell Distribution Width 17.1 % (11.5-14.5); White Blood Count 11.4 K/mm3 (4.5-10.0)
[2024-05-05 11:54] LABS: Alanine Aminotransferase 24 U/L (6-35); Albumin Level 4.1 g/dL (3.5-5.1); Alkaline Phosphatase 134 U/L (38-126); Anion Gap 10 mmol/L (4-12); Aspartate Amino Transferase 39 U/L (14-36); Blood Urea Nitrogen 14 mg/dL (7-17); Calcium 9.1 mg/dL (8.4-10.2); Carbon Dioxide 29 mmol/L (22-30); Chloride 103 mmol/L (98-107); Cholesterol 177 mg/dL (0-200); Estimated Glomerular Filt Rate 49; Glucose 111 mg/dL (65-110); HDL Direct 46 mg/dL; Potassium 3.7 mmol/L (3.4-5.0); Sodium 142 mmol/L (137-145); Triglycerides 140 mg/dL (<150)
[2024-05-05 12:05] LABS: LDL Cholesterol Direct 95 mg/dL
[2024-05-05 12:27] LABS: Hemoglobin A1C 5.8 % (<5.7)
[2024-05-06 08:23] LABS: Total Triiodothyronine (T3) 1.86 NG/ML (0.97-1.69)
== END 2024-05-05 09:17 | disposition home or self-care (01) ==
PROVIDERS: Visit Provider Internal Medicine Cardiovascular Disease
DX: I35.0 Nonrheumatic aortic (valve) stenosis (principal); I35.8 Other nonrheumatic aortic valve disorders; I34.81 Nonrheumatic mitral (valve) annulus calcification; I51.89 Other ill-defined heart diseases; E78.5 Hyperlipidemia, unspecified; E11.9 Type 2 diabetes mellitus without complications
CPT/HCPCS: 36415; 80053; 80061; 83036; 84439; 84443; 84480; 85025; 93306